=== PATIENT | male | born 1975 | race Caucasian/White ===

== ENCOUNTER 2020-02-05 14:02 | Inpatient (IN) | payer MEDICARE, MEDICAID, SELFPAY ==
[2020-02-05 14:07] VITALS: BP 137/87; PULSE 100; RESP 16; TEMP 36.6; O2SAT 97; BMI 28.8
--- NOTE | 2020-02-05 14:12 | W.ED.PSYCH ---
HPI - Psych General: Chief Complaint: Psychiatric Symptoms Stated Complaint: mhe Time Seen by Provider: 02/05/20 14:10 Source: patient and police Mode of arrival: other History of Present Illness: HPI Narrative: 45-year-old male who is here with [facility]. They have been called as he has been threatening to stab people and cut them with a box knife. Patient is quite agitated and aggressive here. He also has hallucinations and was told these people [facility] Patient here will not answer my questions and gets very agitated. He supposed to be on psychiatric medicines for schizophrenia but has not been taking them. He is homeless and has been using methamphetamine. Onset (ago): day(s) Relieving factors: none Exacerbating factors: none Associated symptoms: Reports depression and homicidal ideation Review of Systems Const: Denies: fever, chills, body aches or change in appetite Eyes: Denies: blurry vision or eye discomfort ENMT: Denies: throat pain or dental pain Card: Denies: chest pain Resp: Denies: shortness of breath GI: Denies: abdominal pain, nausea, vomiting or diarrhea : Denies: painful urination Musc: Denies: neck pain or back pain Skin/Breast: Denies: rash Neuro: Denies: headache Psych: Reports: depression, irritability, paranoia and homicidal ideation Dawit/Lymph: Denies: easy bruising All/Imm: Denies: hives PFS ED PFSH: Social History Smoking and tobacco status: current every day smoker Physical Exam Const: COMMON NORMALS: no apparent distress, oriented x3 and healthy appearing HENMT: COMMON NORMALS: normocephalic and head/scalp atraumatic HEAD & SCALP: normocephalic and atraumatic Eye: COMMON NORMALS: PERRL and EOMs intact bilaterally PUPIL: Yes PERRL Neck/C-Spine: COMMON NORMALS: full ROM and supple Chest: COMMONS NORMALS: inspection of chest normal and palpation of chest normal Resp: COMMON NORMALS: normal respiratory effort, no retractions, no use of accessory muscles and clear to auscultation bilaterally AUSCULTATION: clear to auscultation bilaterally Cardio: COMMON NORMALS: regular rate, regular rhythm and no murmurs RATE: regular rate RHYTHM: regular rhythm GI: COMMON NORMALS: normal to inspection, nondistended, normoactive bowel sounds, soft to palpation, non-tender and no masses PALPATION: Yes soft Extremity: COMMON NORMALS: normal to inspection and full ROM Neuro: COMMON NORMALS: oriented x3, moves all extremities and no focal motor deficits Psych: ATTITUDE: Yes paranoid and Yes aggressive ACTIVITY/MOTOR BEHAVIOR: Yes fidgeting MOOD & AFFECT: Yes anxious THOUGHT PROCESS: disorganized THOUGHT CONTENT: Yes homicidality and Yes hallucination(s) Skin: COMMON NORMALS: no rashes or lesions noted and no wounds GENERAL SKIN EXAM: no rashes or lesions noted MDM - Psych MDM Narrative: Medical decision making narrative: Patient presents here with homicidal ideations along with hallucinations. Patient was placed under [address] I spoke to Dr. Pederson and will admit. Lab Data: Labs: Lab Results 02/05/20 02/05/20 Range/Units 14:32 14:32 WBC 6.0 (4.0-10.0) 10^3/ uL RBC 4.09 L (4.1-5.3) 10^6/u L Hgb 12.8 (11.7-16.6) g/dL Hct 40.3 L (42.0-52.0) % MCV 98.5 H (80-94) fL MCH 31.3 (28.0-34.0) pg MCHC 31.8 (30.0-36.0) g/dL RDW 12.0 L (12.1-15.1) % Plt Count 277 (130-400) 10^3/c mm MPV 9.7 (7.4-10.4) fL Neut % (Auto) 61.9 % Lymph % (Auto) 27.8 % Arthur % (Auto) 8.7 % Eos % (Auto) 0.7 % Baso % (Auto) 0.7 % Neut # (Auto) 3.7 (1.8-7.7) 10^3/u L Lymph # (Auto) 1.7 (0.8-4.8) 10^3/u L Arthur # (Auto) 0.5 (0.2-0.9) 10^3/u L Eos # (Auto) 0.0 (0.0-0.8) 10^3/u L Baso # (Auto) 0.0 (0.0-0.1) 10^3/u L Nucleated RBC % (a uto) 0 % Nucleated RBCs # 0.0 /100WBC Sodium 141 (136-145) mmol/L Potassium 3.7 (3.5-5.1) mmol/L Chloride 104 (98-107) mmol/L Carbon Dioxide 28 (22-29) mmol/L Anion Gap 12.7 (5-19) BUN 12 (6-20) mg/dL Creatinine 0.6 L (0.7-1.2) mg/dL GFR Calculation 145.0 H (90-130) mL/min Glucose 90 (65-115) mg/dL Calculated Osmolal ity 288 (285-295) mOsm/k g Calcium 9.4 (8.5-10.5) mg/dL Total Bilirubin 0.5 (0.15-1.2) mg/dL AST 37 (0-40) U/L ALT 41 (0-41) U/L Alkaline Phosphata se 79 (40-130) IU/L Total Protein 6.5 L (6.6-8.7) g/dL Albumin 4.0 (3.5-5.2) g/dL Globulin 2.5 (1.3-4.6) g/dL Salicylates < 0.3 L (3-10) mg/dL Acetaminophen < 5.0 L (10-30) ug/mL Ethyl Alcohol < 10 (0-10) mg/dL Discharge Plan Discharge Patient Disposition: Admitted As Inpatient Clinical Impression: Chronic schizophrenia, Drug-induced psychotic disorder Condition: Stable Prescriptions: No Action No Known Home Medications RF: 0 Referrals: Wang Dodson MD [Family Provider] - Coding Level of Care Code ED [employer] Producer for [facility] Fwd Exam Comprehensive
[2020-02-05 14:27] VITALS: RESP 18
[2020-02-05] MEDS: haloperidol inj 5 mg/mL INJ 1 mL IM (14:41)
[2020-02-05] MEDS: LORazepam 2 mg/mL INJ 1 mL IM (14:41)
[2020-02-05 14:47] VITALS: RESP 17
[2020-02-05 14:49] LABS: Basophils % 0.7 %; Eosinophils % 0.7 %; Hematocrit 40.3 % (42.0-52.0); Hemoglobin 12.8 g/dL (11.7-16.6); Lymphocytes # 1.7 10^3/uL (0.8-4.8); Lymphocytes % 27.8 %; Mean Corpuscular HGB Conc 31.8 g/dL (30.0-36.0); Mean Corpuscular Hemoglobin 31.3 pg (28.0-34.0); Mean Corpuscular Volume 98.5 fL (80-94); Mean Platelet Volume 9.7 fL (7.4-10.4); Monocytes # 0.5 10^3/uL (0.2-0.9); Monocytes % 8.7 %; Neutrophils # 3.7 10^3/uL (1.8-7.7); Neutrophils % 61.9 %; Nucleated Red Blood Cells % 0 %; Platelet Count 277 10^3/cmm (130-400); Red Blood Count 4.09 10^6/uL (4.1-5.3)
[2020-02-05 15:04] LABS: Alanine Aminotransferase 41 U/L (0-41); Alkaline Phosphatase 79 IU/L (40-130); Anion Gap 12.7 (5-19); Aspartate Amino Transferase 37 U/L (0-40); Blood Urea Nitrogen 12 mg/dL (6-20); Calcium 9.4 mg/dL (8.5-10.5); Carbon Dioxide 28 mmol/L (22-29); Chloride 104 mmol/L (98-107); Globulin 2.5 g/dL (1.3-4.6); Glucose 90 mg/dL (65-115); Osmolality Calculated 288 mOsm/kg (285-295); Potassium 3.7 mmol/L (3.5-5.1); Sodium 141 mmol/L (136-145); Total Bilirubin 0.5 mg/dL (0.15-1.2); Total Protein 6.5 g/dL (6.6-8.7)
[2020-02-05 15:18] LABS: Acetaminophen < 5.0 ug/mL (10-30); Alcohol Level < 10 mg/dL (0-10); Salicylate < 0.3 mg/dL (3-10)
[2020-02-05 16:18] VITALS: BP 116/64; PULSE 92; RESP 15; O2SAT 98
[2020-02-05 16:44] VITALS: BP 102/65; PULSE 76; RESP 18; TEMP 36.5; O2SAT 98
[2020-02-05 21:27] VITALS: BP 109/65; PULSE 91; RESP 16; TEMP 36.7; O2SAT 99
[2020-02-06 06:00] VITALS: BP 145/71; PULSE 88; RESP 18; TEMP 36.9; O2SAT 99
--- NOTE | 2020-02-06 11:15 | PM.NHP ---
Providers/Chief Complaint Admitting Physician: Jermaine Pederson MD Chief Complaint: HOMICIDAL IDEATION, HALUCINTATIONS HPI NPU History of Present Illness Paul Rhodes is a 45 year old male who presented to the emergency room having presented with an ambulance as he was reportedly threatening to stab people and cut him with a box knife. He was aggressive and agitated. He was endorsing hallucinations that led him to tell people he was going to send him to [facility]. He had agitated with questions. And reportedly was not taking his psychiatric medication and had been using methamphetamine. He was admitted to the neuropsychiatric unit for definitive care for those issues. Upon approach by this engineering technical writer he initially was receptive to questions. Then when he was identified as being on a 96-hour hold he asked when the hold would be over I gave him the time and he became very agitated screaming and calling this engineering technical writer a liar. Then after an explanation of how the surgery long works he got very angry and started calling this engineering technical writer a Nigger and threatening to harm this engineering technical writer saying at one point I can make one phone call and you would not make it to work tomorrow. He pointed to his head and made it clear that he can make that phone call without using a phone just using his head. He would not participate in the conversation more. I have included his last evaluation here at [facility] in 2014 or [place] excerpt from that stay for some additional psychosocial information. That can be found below. Per last [facility] eval in 2014: History of Present Illness Date of Service: May 31, 2015 Chief Complaint: The law arrested me HPI: The patient was admitted from the emergency room on a 96 hour hold. He was brought to the emergency room by police after he was found running in the streets naked. He states he had not taken his medications in a few days.The patient endorses depressed mood most of the time, anhedonia, reduced appetite, fatigue, trouble concentrating, insomnia, feelings of guilt, psychomotor retardation. Also endorses extreme irritability and not needing to sleep for days. He has a history of bipolar disorder for which he receives disability benefits. He is not hearing voices and seeing things. He states he has a history of polysubstance dependence and states I have done a lot of drugs . However, states he now smokes mostly marijuana and his urine drug screen was positive for THC and benzodiazepines. Review of Psychiatric Systems: Negative, except as above. Allergies: Coded Allergies: PENICILLINS (Unverified Allergy, Unknown, 05/30/15) Active Meds: Current Hospital Medications: Medications (Trade) Dose Ordered Sig/Charity Route PRN Reason Start Time Stop Time Status Last Admin Dose Admin Lorazepam (Ativan Tab) 0.5 mg Q4H PRN PO FOR MILD ANXIETY 05/30/15 19:00 Lorazepam (Ativan Tab) 1 mg Q4H PRN PO FOR MODERATE ANXIETY 05/30/15 19:00 Lorazepam (Ativan Tab) 2 mg Q4H PRN PO FOR SEVERE ANXIETY 05/30/15 19:00 Lorazepam (Ativan Inj) 2 mg Q4H PRN IM For Severe Aggression 05/30/15 19:00 Haloperidol Lactate (Haldol Inj) 5 mg Q4H PRN IM Severe Aggression 05/30/15 19:00 Diphenhydramine HCl (Benadryl Inj) 50 mg ONCE PRN IV Severe Extrapyramidal Symptoms 05/30/15 19:00 Benztropine Mesylate (Cogentin Tab) 1 mg BID PRN PO Mild Extrapyramidal symptoms 05/30/15 19:00 Benztropine Mesylate (Cogentin Inj) 1 mg ONCE PRN IM Severe Extrapyramidal Symptom 05/30/15 19:00 Acetaminophen (Tylenol Tab) 650 mg Q4H PRN PO FOR MILD PAIN 05/30/15 19:00 Trazodone HCl (Trazodone) 50 mg HS PRN PO FOR SLEEP 05/30/15 19:00 Nicotine (Nicoderm Patch) 21 mg DAILY PRN TD FOR WITHDRAWAL 05/30/15 19:00 Nicotine Polacrilex (Nicotine Gum) 2 mg Q2H PRN PO Withdrawal 05/30/15 19:00 Haloperidol (Haldol Tab) 5 mg Q4H PRN PO For agitation 05/30/15 19:00 Lorazepam (Ativan Tab) 2 mg Q4H PRN PO FOR AGITATION 05/30/15 19:00 Divalproex Sodium (Depakote Tab) 250 mg BID PO 05/31/15 22:00 Quetiapine Fumarate (Seroquel) 300 mg HS PO 05/31/15 22:00 Simvastatin (Zocor) 20 mg HS PO 05/31/15 22:00 Citalopram Hydrobromide (Celexa) 40 mg DAILY PO 05/31/15 10:30 05/31/15 11:19 Home Meds: Seroquel 300 mg at bedtime, Celexa 40 mg daily, Depakote 250 mg twice a day, simvastatin 40 mg daily. Past Medical History Past Medical/Social History: PAST PSYCHIATRIC HISTORY:Previous psychiatric admissions: Yes, in [place] and in [place]. Previous suicide attempts:No. SUBSTANCE ABUSE HISTORY: Smokes Cigarettes: yes. Number of packs per day: 2. Endorses illicit drug use: As mentioned above. Alcohol use: Occasionally. History of alcohol related withdrawal seizures:No. History of Delirium Tremens:No. SOCIAL HISTORY: Employed: No. Is on disability: Yes. Education: High school graduate. Marital status: Single. Has 1 child. DEVELOPMENTAL HISTORY: History of Physical, Emotional and Sexual abuse: No. LEGAL HISTORY: States he is on probation, but does not elaborate. FAMILY PSYCHIATRIC HISTORY: None reported. PAST MEDICAL HISTORY: None. Meds NPU Home Medications Medication Instructions Recorded Confirmed Last Taken Type No Known Home Medications 02/05/20 02/05/20 Unknown History Allergies Allergy/AdvReac Type Severity Reaction Status Date / Time No Known Allergies Allergy Verified 02/05/20 14:14 PFSH NPU PFSH: Social History Smoking and tobacco status: current every day smoker Mental Status Exam MSE Comments: This is an overweight white male with adequate dress grooming and eye contact. No abnormal movements except for psychomotor agitation. Uncooperative with exam, at times and extreme distress. Speech was increased rate and volume. Mood described as fine affect agitated thought process disorganized with flight of ideas at times but organized to some degree at others. Thought content patient denied suicidal ideation not endorsed homicidal ideation initially but then threatened this engineering technical writer, there were no delusions reported but clear paranoid, hyper taoism and persecutory delusions exist, he did appear to be attending to internal stimuli. Attention and concentration were impaired and memory was unreliable but none were formally tested. He is alert and oriented to person and place. Insight and judgment are impaired. Vitals/I&O/Wt Last Vital Signs Temp 98.5 F 02/06/20 06:00 Pulse 88 02/06/20 06:00 Resp 18 02/06/20 06:00 BP 145/71 02/06/20 06:00 Pulse Ox 95 05/01/20 06:00 Weight last 48 hrs Weight 102.058 kg Data NPU : 02/05/20 14:32 02/05/20 14:32 A&P Assessment and plan (1) Chronic schizophrenia: This is a 45-year-old white male with a history of bipolar disorder and methamphetamine addiction who presents without a UDS with acute psychosis and presumed of methamphetamine intoxication who presents very volatile and resistant to treatment. 1. Continue current medication. 2. We will recommend Abilify 10 mg p.o. every morning. Restart it and see if he is willing to take it but he resisted continuance of the interview. 3. Encouraged individual, group and milieu therapy. 4. Continue to 15-minute checks for safety. 5. We will work with social work for collateral information as well as recommendations for sober living facility or sober living treatment at the highest level of care to which he is willing to commit. Status: Acute (2) Drug-induced psychotic disorder: Status: Acute (3) Methamphetamine dependence: Status: Acute Involuntary Hold Information 96 Hour Hold: 96 Hour Involuntary Admission: Yes 96 Hour Hold Ending Date: 02/11/20 96 Hour Hold Ending Time: 14:02 Attestations NPU Medical Necessity Statement*: Inpatient hospitalization is medically necessary and the clinically appropriate intervention at this time. He will be in the hospital for over 2 midnights. We will monitor medications and add medications and adjust as indicated. Likely length of stay 5 to 7 days. Coding Level of Care Code Acute Contact Worker Lithography for Brian Beltran Diagnoses Chronic schizophrenia F20.9 Drug-induced psychotic disorder F19.959 Methamphetamine dependence F15.20
[2020-02-06 14:00] VITALS: BP 110/67; PULSE 82; RESP 20; TEMP 36.6; O2SAT 99
[2020-02-06 19:31] VITALS: BP 129/73; PULSE 84; RESP 17; TEMP 36.9; O2SAT 99
[2020-02-07 06:00] VITALS: BP 113/79; PULSE 94; RESP 18; TEMP 36.7; O2SAT 98
[2020-02-07 12:59] VITALS: BP 105/65; PULSE 66; RESP 18; TEMP 36.6; O2SAT 97
[2020-02-07] MEDS: nicotine 2 mg Gum BUCCAL ×3 (15:50→21:09)
--- NOTE | 2020-02-07 17:34 | P.PN_ITS ---
Subjective NPU Subjective: Interval history: The patient presents today a little less volatile than yesterday. He reports that his major issue is related to the fact that he has a payee and the payee has somehow fouled up his money. He endorses that he is homeless for that reason. He reports recently having spent some time in a retirement and he had seven hundred and some dollars in his wallet when he went there, and then when he left, there is three-hundred dollars missing and reports that because he is in his condition nobody believes him, but those are the things that are making it hard for him to not be homeless. We talked about his behavior yesterday and him not feeling that there is anything really wrong with him even though he makes these rastafari assertions suggesting that he is Eh Thomas, assertions that he has special abilities. He does not see that as any issue and for the third day he turned down my offer there might be some medication that will help give him some clarity. He reports he wants to wait until he can be discharged and then he will reportedly do whatever is necessary to stay well, but he does not believe he needs medication. Mental Status Exam MSE Comments: This is an overweight, versus obese, white male, with adequate dress, grooming, and eye contact. No abnormal movements except for mild psychomotor agitation. More cooperative with exam in no acute distress. Speech was more normal rate and volume. Mood described as fine; affect still elevated. Thought process, more organized today. Thought content: patient denied any suicidal or homicidal ideation, there were no delusions reported but clear rastafari, paranoid and persecutory delusions exist. He did not appear to be attending to internal stimuli. His attention and concentration were improved, but memory still appears unreliable, but none were formally tested. He is alert and oriented to person and place. Insight and judgment are impaired. Vitals/I&O/Wt Last Vital Signs Temp 97.9 F 02/07/20 12:59 Pulse 66 02/07/20 12:59 Resp 18 02/07/20 12:59 BP 105/65 02/07/20 12:59 Pulse Ox 97 02/07/20 12:59 Data NPU : 02/05/20 14:32 02/05/20 14:32 A&P Additional A&P Information (1) Chronic schizophrenia: This is a 45-year-old white male with a history of bipolar disorder and methamphetamine addiction who presents without a UDS with acute psychosis and presumed of methamphetamine intoxication who presents very volatile and resistant to treatment. 1. Continue current medication. 2. We will recommend Abilify 10 mg p.o. every morning. Will continue to offer it and see if he is willing to take it. 3. Encouraged individual, group and milieu therapy. 4. Continue to 15-minute checks for safety. 5. We will work with social work for collateral information as well as recommendations for sober living facility or sober living treatment at the highest level of care to which he is willing to commit. (2) Drug-induced psychotic disorder: (3) Methamphetamine dependence: Involuntary Hold Information 96 Hour Hold: 96 Hour Involuntary Admission: Yes 96 Hour Hold Ending Date: 02/11/20 96 Hour Hold Ending Time: 14:02 Attestations U Medical Necessity Statement*: Inpatient hospitalization is medically necessary and the clinically appropriate intervention at this time. We will monitor medications and add medications and adjust as indicated. Likely length of stay 5 to 7 days. Coding Level of Care Code Acute Band Cutting Machine Operator for Brian Beltran
[2020-02-07 20:02] VITALS: BP 111/73; PULSE 86; RESP 100; TEMP 36.7; O2SAT 17
[2020-02-08 06:00] VITALS: BP 110/67; PULSE 70; RESP 18; TEMP 36.8; O2SAT 98
[2020-02-08] MEDS: nicotine 2 mg Gum BUCCAL ×5 (09:02→23:24)
--- NOTE | 2020-02-08 12:33 | PM.NPN ---
Subjective NPU Subjective: Interval history: Paul presented today continuing to be in a state of acute psychosis. He had ramblings that were often racist in relation to this narrative writer during the assessment. There are times that he talked about nigger and jigaboo and often referred to this narrative writer as felicia for short, but then later asserted that he was not being racist, that this narrative writer was the most racist person in the hospital because I was probably one of few black people there, therefore I was the most racist. He then went on some tangent about these rocks that he had and this narrative writer not touching them, demanding that the staff show him the rocks and asserting that they came from arch angels and Alpesh, and all kinds of hyper-orthodox connections. Then when challenged he would get angry and give some assessment of who he is connected to, he talked about being connected to Eh Thomas. He argued that the KKK was not harmful to black people, that they protected black people and said that the KKK standard was referring to JFK, MLK and RFK, those are the three K?s. He refused offering of medication. Mental Status Exam MSE Comments: This is a well-nourished, well-developed, white male, with adequate dress, grooming, and eye contact. No abnormal movements except for psychomotor agitation. Uncooperative with exam for the most part in moderate to significant distress. Speech was increased rate and volume, at times pressured. Mood described as fine; affect energetic and manic. Thought process, disorganized. Thought content: patient denied any suicidal or homicidal ideation, there were no delusions reported, but significant paranoid, persecutory and hyper-orthodox delusions exist along with significant grandiosity. He did not report hearing or seeing things but was often seen talking to himself. Attention and concentration were limited, and memory is unreliable, but none were formally tested. Alert and oriented to person and place. Insight and judgment are impaired. Vitals/I&O/Wt Last Vital Signs Temp 98.5 F 02/08/20 20:39 Pulse 92 02/08/20 20:39 Resp 21 H 02/08/20 20:39 BP 113/80 02/08/20 20:39 Pulse Ox 100 02/08/20 20:39 Weight last 48 hrs Weight 79.492 kg Data NPU : 02/05/20 14:32 02/05/20 14:32 A&P Additional A&P Information (1) Chronic schizophrenia: This is a 45-year-old white male with a history of bipolar disorder and methamphetamine addiction who presents without a UDS with acute psychosis and presumed of methamphetamine intoxication who presents very volatile and resistant to treatment. 1. Continue current medication. 2. We will recommend Abilify 10 mg p.o. every morning. Will continue to offer it and see if he is willing to take it. 3. Encouraged individual, group and milieu therapy. 4. Continue to 15-minute checks for safety. 5. We will work with social work for collateral information as well as recommendations for sober living facility or sober living treatment at the highest level of care to which he is willing to commit. (2) Drug-induced psychotic disorder: (3) Methamphetamine dependence: Involuntary Hold Information 96 Hour Hold: 96 Hour Involuntary Admission: Yes 96 Hour Hold Ending Date: 02/11/20 96 Hour Hold Ending Time: 14:02 Attestations NPU Medical Necessity Statement*: Inpatient hospitalization is medically necessary and the clinically appropriate intervention at this time. We will monitor medications and add medications and adjust as indicated. Likely length of stay 5 to 7 days. Coding Level of Care Code Acute Ribbon Blockmaker for Brian Beltran
[2020-02-08 14:00] VITALS: BP 117/77; PULSE 82; RESP 18; TEMP 36.9
--- NOTE | 2020-02-08 15:04 | PC.NURSE ---
Patient behavior Patient yelling at Dr Pederson calling him racist names, wanting to fight him. Punched himself in his face once. Offered medication for anxiety and he refused. De escalation and distraction measures used to calm him down. Will continue to monitor.
[2020-02-08 20:39] VITALS: BP 113/80; PULSE 92; RESP 21; TEMP 36.9; O2SAT 100
[2020-02-09] MEDS: nicotine 2 mg Gum BUCCAL ×4 (05:09→18:55)
[2020-02-09 06:00] VITALS: BP 119/85; PULSE 74; RESP 20; TEMP 36.9; O2SAT 100
--- NOTE | 2020-02-09 12:16 | P.PN_ITS ---
Subjective NPU Subjective: Interval history: Paul presents today continuing to be floridly psychotic and manic, continuing to make comments about special rocks and overall with grandiose delusions about him being connected in special ways. He went on a rant today about naming three counties in the local [place] area and somehow ending it with him being related to the person who the county may have been named after. There was a lot of Clang associations, and things like that, that are not going to diminish with time. We had a conversation today about how I am really concerned about him being able to leave after the 96-hour observation, which he is locked in on the date and time of the end of his 96-hour hold. I explained to him that if he was not well he would not be discharged but his take was that he is well, which I disagreed with, but he was not hearing that because he thinks he is doing wonderfully about everything. Once again offered medication and stated the risks, benefits, and alternatives, and it is not clear that he understood and he refused a trial. As far as we have been told, he was doing really well on medication, to the point that they gave him back his own guardianship earlier this year, and now he is in a very precarious situation. Mental Status Exam MSE Comments: This is a well-nourished, well-developed, white male, with adequate dress and grooming, and limited eye contact. No abnormal movements, except for psychomotor agitation. Uncooperative with exam in mild to moderate distress. Speech was increased rate and volume. Mood described as fine; affect energized and manic appearing. Thought process, organized at times, at other times was quite disorganized. Thought content: patient denied any suicidal or homicidal ideation; there were no delusions reported but significant paranoid, persecutory, grandiose delusions exist; he denied any auditory or visual hallucinations but he does appear to be attending to internal stimuli, at times, and is speaking to himself. Attention and concentration are limited, and memory was unreliable, but none were formally tested. He is alert and oriented to person and place. Insight and judgment are impaired. Vitals/I&O/Wt Last Vital Signs Temp 98.5 F 02/09/20 22:00 Pulse 109 H 02/09/20 22:00 Resp 22 H 05/04/20 22:00 BP 132/61 02/09/20 22:00 Pulse Ox 97 02/09/20 22:00 Weight last 48 hrs Weight 79.492 kg Data NPU : 02/05/20 14:32 02/05/20 14:32 A&P Additional A&P Information (1) Chronic schizophrenia: This is a 45-year-old white male with a history of bipolar disorder and methamphetamine addiction who presents without a UDS with acute psychosis and presumed of methamphetamine intoxication who presents very volatile and resistant to treatment. 1. Continue current medication. 2. We will recommend Abilify 10 mg p.o. every morning. Will continue to offer it and see if he is willing to take it. 3. Encouraged individual, group and milieu therapy. 4. Continue to 15-minute checks for safety. 5. We will work with social work for collateral information as well as recommendations for sober living facility or sober living treatment at the highest level of care to which he is willing to commit. (2) Drug-induced psychotic disorder: (3) Methamphetamine dependence: Involuntary Hold Information 96 Hour Hold: 96 Hour Involuntary Admission: Yes 96 Hour Hold Ending Date: 02/11/20 96 Hour Hold Ending Time: 14:02 Attestations NPU Medical Necessity Statement*: Inpatient hospitalization is medically necessary and the clinically appropriate intervention at this time. We will monitor medications and add medications and adjust as indicated. Likely length of stay 5 to 7 days. Coding Level of Care Code Acute Changer Fixer for Brian Beltran
[2020-02-09 14:00] VITALS: BP 127/82; PULSE 80; RESP 20; TEMP 36.8; O2SAT 99
--- NOTE | 2020-02-09 17:04 | PC.NURSE ---
patient behavior patient asked for stuff to take a shower, so staff went and got patient towels and then went to the patient closet to get patient a shirt. staff gave patient a shirt and patient said i dont like long sleeves and ripped the sleeves off. staff told patient that it was against the rules to wear cut off shirts so patient gave it back to staff and asked for another shirt. staff told patient that all we had right now was long sleeve shirts. then patient screamed at staff 'you stupid bitch patient walking back to room to take a shower talking to self.
[2020-02-09 22:00] VITALS: BP 132/61; PULSE 109; RESP 22; TEMP 36.9; O2SAT 97
[2020-02-10] MEDS: diphenhydrAMINE 50 mg/mL SDV 1mL IM ×2 (01:58→15:45)
[2020-02-10] MEDS: LORazepam 2 mg/mL INJ 1 mL IM ×2 (01:58→15:45)
[2020-02-10] MEDS: haloperidol inj 5 mg/mL INJ 1 mL IM ×2 (01:58→15:45)
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
[2020-02-10 06:00] VITALS: BP 128/75; PULSE 101; RESP 16; TEMP 36.4; O2SAT 99
[2020-02-10] MEDS: nicotine 2 mg Gum BUCCAL (09:10)
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
[2020-02-10 14:00] VITALS: BP 124/82; PULSE 92; RESP 18; TEMP 36.6; O2SAT 98
[2020-02-10] MEDS: haloperidol 5 mg Tablet PO (14:36)
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
[2020-02-10] MEDS: LORazepam 2 mg Tablet PO (14:43)
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
--- NOTE | 2020-02-10 16:50 | PC.NURSE ---
PATIENT RESTING QUIETLY, NO DISTRESS NOTED. PRN EFFECTIVE. WILL CONT TO MONITOR, SUPPORT AND REDIRECT NEEDED
[2020-02-10 22:00] VITALS: BP 104/63; PULSE 72; RESP 16; TEMP 36.5; O2SAT 95
[2020-02-11] MEDS: nicotine 2 mg Gum BUCCAL ×4 (05:37→17:45)
[2020-02-11 06:00] VITALS: BP 107/75; PULSE 98; RESP 16; TEMP 36.6; O2SAT 96
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
[2020-02-11 14:00] VITALS: BP 104/64; PULSE 99; RESP 18; TEMP 36.6; O2SAT 97
--- NOTE | 2020-02-11 16:20 | PC.SOCIAL ---
[address] hearing scheduled for 11am on 02/12/20.
[2020-02-11 22:00] VITALS: BP 116/79; PULSE 91; RESP 17; TEMP 36.4; O2SAT 100
[2020-02-11 22:21] LABS: Amphetamines Screen Urine Negative (Negative); Barbiturates Screen Urine Negative (Negative); Benzodiazepines Screen Urine Positive (Negative); Cocaine Screen Urine Negative (Negative); Opiate Screen Urine Negative (Negative); PCP Screen Urine Negative (Negative); THC Screen Urine Negative (Negative)
[2020-02-12] MEDS: acetaminophen 325 mg Tablet 650 MG PO (04:07)
[2020-02-12] MEDS: nicotine 2 mg Gum BUCCAL ×7 (04:08→19:45)
[2020-02-12 06:00] VITALS: BP 112/67; PULSE 58; RESP 20; TEMP 36.6; O2SAT 99
--- NOTE | 2020-02-12 11:37 | PC.NURSE ---
OFF UNIT TO ATTEND [address] HEARING
--- NOTE | 2020-02-12 11:53 | P.PN_ITS ---
Subjective NPU Subjective: Interval history: Paul presented today reporting that he wanted to go home. We had a court date and went to court, and it went as would be expected. He did not do well in the court setting. He could not answer the questions in a rational way. He was making racial comments about this selling underwriter and ultimately erupted, at one point, needing to be escorted out of the courtroom. Back at the unit, he continued his same antics, so to speak, with reports of seeking forgiveness for calling this selling underwriter a ?nigger? and requesting that he be put back on his medication. At this point, we will engage in the medication but, reportedly, it looks like it historically got him functional but there is significant concern, which I expressed to him, regarding him not having a medication that ultimately could be a long acting injectable. Mental Status Exam MSE Comments: This is a well-nourished, well-developed, white male, with adequate dress, grooming, and eye contact, with a bandaid on his forehead of unknown purpose. No abnormal movements, except for psychomotor agitation. Semi- cooperative with exam in occasional mild to moderate distress. Speech was increased rate but normal volume. Mood described as ?I?m fine?; affect somewhat less energetic. Thought process, organized with moments of disorganization when he is speaking to himself and ranting. Thought content: patient denied any suicidal or homicidal ideation; there were no delusions reported but there are clear paranoid, persecutory, and grandiose delusions; he denied auditory or visual hallucinations but is seen speaking to himself, and he does appear to be attending to internal stimuli, at times. Attention and concentration are mostly intact but still distractible, and memory is unreliable, but none were formally tested. He is alert and oriented times three. Insight and judgment are impaired. Vitals/I&O/Wt Last Vital Signs Temp 97.6 F 02/12/20 22:00 Pulse 91 02/12/20 22:00 Resp 18 02/12/20 22:00 BP 151/83 02/12/20 22:00 Pulse Ox 100 02/12/20 22:00 Data NPU : 02/05/20 14:32 02/05/20 14:32 A&P Additional A&P Information (1) Chronic schizophrenia: This is a 45-year-old white male with a history of bipolar disorder and methamphetamine addiction who presents without a UDS with acute psychosis and presumed of methamphetamine intoxication who presents very volatile and resistant to treatment. 1. Continue current medication. Given Depakote 500 ER qhs and Seroquel 100mg qhs. 2. We will recommend Abilify 10 mg p.o. every morning. or invega 6 mg given the CAMPA available for those medications. Will continue to offer it and see if he is willing to take it. 3. Encouraged individual, group and milieu therapy. 4. Continue to 15-minute checks for safety. 5. We will work with social work for collateral information as well as recommendations for sober living facility or sober living treatment at the highest level of care to which he is willing to commit. 6. 21 day hold granted. (2) Drug-induced psychotic disorder: (3) Methamphetamine dependence: Involuntary Hold Information 96 Hour Hold: 96 Hour Involuntary Admission: Yes 96 Hour Hold Ending Date: 02/11/20 96 Hour Hold Ending Time: 14:02 Attestations NPU Medical Necessity Statement*: Inpatient hospitalization is medically necessary and the clinically appropriate intervention at this time. We will monitor medications and add medications and adjust as indicated. Likely length of stay 5 to 7 days. Coding Level of Care Code Acute Dobby Loom Chain Pegger for Brian Beltran
--- NOTE | 2020-02-12 12:45 | PC.NURSE ---
return to unit from [address]
[2020-02-12 14:00] VITALS: BP 112/72; PULSE 86; RESP 18; TEMP 36.4; O2SAT 100
--- NOTE | 2020-02-12 14:20 | PC.SOCIAL ---
21 day hold was granted. If extension is needed will need to be filed by 02/27/20. 21 day hold up on 03/03/20.
[2020-02-12] MEDS: divalproex ER 500 mg Tablet (24H) PO (20:18)
[2020-02-12] MEDS: quetiapine 100 mg Tablet PO (20:18)
[2020-02-12 22:00] VITALS: BP 151/83; PULSE 91; RESP 18; TEMP 36.4; O2SAT 100
[2020-02-13 06:00] VITALS: BP 99/61; PULSE 57; RESP 18; TEMP 36.4; O2SAT 97
[2020-02-13] MEDS: nicotine 2 mg Gum BUCCAL ×4 (07:07→14:53)
--- NOTE | 2020-02-13 09:58 | PC.NURSE ---
patient behavior patient is at the nurses station demanding a shirt when staff told patient that we dont have any. while staff was getting patient a towel and had to go to the other side to get towels patient called staff fat cunts . staff gave patient towels and patient went to take a shower.
--- NOTE | 2020-02-13 12:34 | PM.NPN ---
Subjective NPU Subjective: Interval history: Paul presents today with his first fairly calm today without major outbursts. He actually had a rough morning calling the nurses their names however later in the day he has been better. He has been able to interact with this telegraphic typewriter operator without major racial overtones and able to ask for what he needs reasonably. We discussed a reasonable titration of his medications back to the doses he imagines them to be which was Depakote ER 500 mg twice a day, Celexa 40 mg p.o. every morning and Seroquel 300 mg p.o. nightly. After discussion of the risks, benefits and alternatives of restarting these medications a bit of the time he understood and agreed to proceed as is documented in this note. Mental Status Exam MSE Comments: This is a well-nourished, well-developed, white male, with adequate dress, grooming, and eye contact, with a bandaid on his forehead of unknown purpose. No abnormal movements, except for improving psychomotor agitation. Cooperative with exam in no acute distress. Speech was more normal rate but normal volume. Mood described as pretty good; affect less energetic. Thought process, organized. Thought content: patient denied any suicidal or homicidal ideation; there were no delusions reported but there are clear paranoid and grandiose delusions that are resolving; he denied auditory or visual hallucinations but is seen speaking to himself, and he does appear to be attending to internal stimuli, at times. Attention and concentration are mostly intact, and memory is unreliable, but none were formally tested. He is alert and oriented times three. Insight and judgment are impaired, but improving. Vitals/I&O/Wt Last Vital Signs Temp 97.6 F 02/13/20 06:00 Pulse 57 L 02/13/20 06:00 Resp 18 02/13/20 06:00 BP 99/61 02/13/20 06:00 Pulse Ox 97 02/13/20 06:00 Data NPU : 02/05/20 14:32 02/14/20 17:20 A&P Additional A&P Information This is a 45-year-old white male with a history of bipolar disorder and methamphetamine addiction who presents without a UDS with acute psychosis and presumed of methamphetamine intoxication who presents very volatile and resistant to treatment. 1. Continue current medication. Give Depakote 500 ER qhs and Seroquel 100mg qhs. 2. We will recommend Abilify 10 mg p.o. every morning. or invega 6 mg given the CAMPA available for those medications. Will continue to offer it and see if he is willing to take it. 3. Encouraged individual, group and milieu therapy. 4. Continue to 15-minute checks for safety. 5. We will work with social work for collateral information as well as recommendations for appropriate aftercare. (2) Drug-induced psychotic disorder: (3) Methamphetamine dependence: Involuntary Hold Information 96 Hour Hold: 96 Hour Involuntary Admission: Yes 96 Hour Hold Ending Date: 02/11/20 96 Hour Hold Ending Time: 14:02 Attestations NPU Medical Necessity Statement*: Inpatient hospitalization is medically necessary and the clinically appropriate intervention at this time. We will monitor medications and add medications and adjust as indicated. Likely length of stay 5 to 7 days. Coding Level of Care Code Acute Livestock Commission Agent for Brian Beltran
[2020-02-13 14:00] VITALS: BP 126/82; PULSE 85; RESP 18; TEMP 36.4; O2SAT 98
[2020-02-13] MEDS: citalopram 20 mg Tablet PO (14:53)
[2020-02-13] MEDS: neomycin-poly-bacitracin oint 28 gm 1 APPLIC TOPICAL (18:55)
[2020-02-13] MEDS: quetiapine 100 mg Tablet PO (20:14)
[2020-02-13] MEDS: divalproex ER 500 mg Tablet (24H) PO (20:14)
[2020-02-13 22:00] VITALS: BP 143/88; PULSE 81; RESP 18; TEMP 36.7; O2SAT 99
[2020-02-14 06:00] VITALS: BP 121/69; PULSE 67; RESP 18; TEMP 36.6; O2SAT 100
[2020-02-14] MEDS: nicotine 2 mg Gum BUCCAL ×5 (06:18→21:32)
[2020-02-14] MEDS: citalopram 20 mg Tablet PO (08:07)
[2020-02-14 14:00] VITALS: BP 110/68; PULSE 96; RESP 18; TEMP 36.8; O2SAT 98
--- NOTE | 2020-02-14 14:34 | PM.NPN ---
Subjective NPU Subjective: Interval history: Paul continues to show improvement and had an increase in his self-control. He was able to go out in the Courty[place] and even interact a little bit with other clients without demonstration of his psychosis. Still signs of paranoia and still interested in leaving. 1 challenge we will have is that he feels like he is doing better which he is and so his desire is going to be to be discharged on Sunday which at this point would not be appropriate but will defer to the treatment team Sunday. At this point he continues to have limited supportive resources. Mental Status Exam MSE Comments: This is a well-nourished, well-developed, white male, with adequate dress, grooming, and eye contact. No abnormal movements, except for improving psychomotor agitation. Cooperative with exam in no acute distress. Speech was more normal rate but normal volume. Mood described as doing good; affect less energetic. Thought process, organized. Thought content: patient denied any suicidal or homicidal ideation; there were no delusions reported but there are clear paranoid and grandiose delusions that are resolving; he denied auditory or visual hallucinations but is seen speaking to himself less, and he does appear to be attending to internal stimuli, at times. Attention and concentration are mostly intact, and memory is unreliable, but none were formally tested. He is alert and oriented times three. Insight and judgment are impaired, but improving. Vitals/I&O/Wt Last Vital Signs Temp 97.8 F 02/14/20 22:00 Pulse 99 02/14/20 22:00 Resp 18 02/14/20 22:00 BP 132/84 02/14/20 22:00 Pulse Ox 96 02/14/20 22:00 Data NPU : 02/05/20 14:32 02/14/20 17:20 A&P Additional A&P Information This is a 45-year-old white male with a history of bipolar disorder and methamphetamine addiction who presents without a UDS with acute psychosis and presumed of methamphetamine intoxication who presents very volatile and resistant to treatment. 1. Continue current medication. Increase Seroquel to 200mg qhs and celexa was restarted. 2. We will recommend Abilify 10 mg p.o. every morning. or invega 6 mg given the CAMPA available for those medications. Will continue to offer it and see if he is willing to take it. 3. Encouraged individual, group and milieu therapy. 4. Continue to 15-minute checks for safety. 5. We will work with social work for collateral information as well as recommendations for appropriate aftercare. (2) Drug-induced psychotic disorder: (3) Methamphetamine dependence: Involuntary Hold Information 96 Hour Hold: 96 Hour Involuntary Admission: Yes 96 Hour Hold Ending Date: 02/11/20 96 Hour Hold Ending Time: 14:02 Attestations NPU Medical Necessity Statement*: Inpatient hospitalization is medically necessary and the clinically appropriate intervention at this time. We will monitor medications and add medications and adjust as indicated. Likely length of stay 5 to 7 days. Coding Level of Care Code Acute Rim Turning Machine Operator for Brian Beltran
[2020-02-14 17:49] LABS: Alanine Aminotransferase 22 U/L (0-41); Albumin Level 4.4 g/dL (3.5-5.2); Alkaline Phosphatase 67 IU/L (40-130); Anion Gap 15.9 (5-19); Aspartate Amino Transferase 23 U/L (0-40); Blood Urea Nitrogen 20 mg/dL (6-20); Calcium 10.8 mg/dL (8.5-10.5); Carbon Dioxide 32 mmol/L (22-29); Chloride 98 mmol/L (98-107); Creatinine Clr Calc Pharmacy 151.2893; Glomerular Filtration Rate 121.4 mL/min (90-130); Glucose 85 mg/dL (65-115); Osmolality Calculated 286 mOsm/kg (285-295); Potassium 5.9 mmol/L (3.5-5.1); Sodium 140 mmol/L (136-145); Total Bilirubin 0.3 mg/dL (0.15-1.2); Total Protein 7.4 g/dL (6.6-8.7)
[2020-02-14] MEDS: neomycin-poly-bacitracin oint 28 gm 1 APPLIC TOPICAL (20:34)
[2020-02-14] MEDS: quetiapine 100 mg Tablet 200 MG PO (21:32)
[2020-02-14] MEDS: divalproex ER 500 mg Tablet (24H) PO (21:32)
[2020-02-14 22:00] VITALS: BP 132/84; PULSE 99; RESP 18; TEMP 36.6; O2SAT 96
[2020-02-15 06:00] VITALS: BP 128/80; PULSE 95; RESP 18; TEMP 36.5; O2SAT 98
[2020-02-15] MEDS: nicotine 2 mg Gum BUCCAL ×5 (06:18→19:37)
[2020-02-15 06:52] LABS: Chol HDL Ratio 2.87 mg/dL (1.0-5.00); Cholesterol 178 mg/dL (0-200); HDL Cholesterol 62 mg/dL (60-100); LDL Cholesterol Calculated 103 mg/dL (50-129); LDL HDL Ratio 1.66 RATIO (0.00-3.22); Triglycerides 64 mg/dL (0-150)
[2020-02-15] MEDS: citalopram 20 mg Tablet PO (08:27)
[2020-02-15] MEDS: quetiapine 25 mg Tablet 50 MG PO (11:08)
--- NOTE | 2020-02-15 11:08 | PC.NURSE ---
PRN SEROQUEL SEROQUEL 50MG PO PER PATIENT C/O ANXIETY. WILL CONTINUE TO MONITOR FOR MEDICATION EFFECTIVENESS.
--- NOTE | 2020-02-15 11:50 | PC.NURSE ---
PRN SEROQUEL FOLLOW UP MEDICATION EFFECTIVE. PATIENT LYING IN BED RESTING.
--- NOTE | 2020-02-15 12:10 | P.PN_ITS ---
Subjective NPU Subjective: Interval history: Paul presented today reporting that he is feeling better and is really beginning to focus on the possibility of discharge tomorrow. We discussed the fact that there will be a new doctor but that ultimately we need to make sure that he is well enough to independently take care of his needs. He is open to an increase in his Depakote and has tolerated the return of his medication thus far per his report. He reports that he is eating and sleeping fine. Mental Status Exam MSE Comments: This is a well-nourished, well-developed, white male, with adequate dress, grooming, and eye contact. No abnormal movements, except for improving psychomotor agitation. Cooperative with exam in no acute distress. Speech was more normal rate but normal volume. Mood described as pretty good; affect less energetic. Thought process, organized. Thought content: patient d enied any suicidal or homicidal ideation; there were no delusions reported but there are paranoid and grandiose delusions that are resolving; he denied auditory or visual hallucinations but is seen speaking to himself less, and he does appear to be attending to internal stimuli, at times. Attention and concentration are mostly intact, and memory is unreliable, but none were formally tested. He is alert and oriented times three. Insight and judgment are impaired, but improving. Vitals/I&O/Wt Last Vital Signs Temp 97.3 F L 02/15/20 22:00 Pulse 95 02/15/20 22:00 Resp 17 02/15/20 22:00 BP 123/79 02/15/20 22:00 Pulse Ox 99 02/15/20 22:00 Weight last 48 hrs Weight 81.193 kg Data NPU : 02/05/20 14:32 02/14/20 17:20 A&P Additional A&P Information This is a 45-year-old white male with a history of bipolar disorder and methamphetamine addiction who presents without a UDS with acute psychosis and presumed of methamphetamine intoxication who presents very volatile and resistant to treatment. 1. Continue current medication. Will increase Depakote ER to 500 bid. 2. We will recommend Abilify 10 mg p.o. every morning. or invega 6 mg given the CAMPA available for those medications. Will continue to offer it and see if he is willing to take it. 3. Encouraged individual, group and milieu therapy. 4. Continue to 15-minute checks for safety. 5. We will work with social work for collateral information as well as recommendations for appropriate aftercare. (2) Drug-induced psychotic disorder: (3) Methamphetamine dependence: Involuntary Hold Information 96 Hour Hold: 96 Hour Involuntary Admission: Yes 96 Hour Hold Ending Date: 02/11/20 96 Hour Hold Ending Time: 14:02 Attestations NPU Medical Necessity Statement*: Inpatient hospitalization is medically necessary and the clinically appropriate intervention at this time. We will monitor medications and add medications and adjust as indicated. Likely length of stay 4-6 days. Coding Level of Care Code Acute Parks And Recreation Manager for Brian Beltran
[2020-02-15 14:00] VITALS: BP 120/63; PULSE 87; RESP 18
[2020-02-15] MEDS: divalproex ER 500 mg Tablet (24H) PO (20:56)
[2020-02-15] MEDS: quetiapine 100 mg Tablet 200 MG PO (20:56)
--- NOTE | 2020-02-15 21:43 | PC.NURSE ---
pt given scheduled depakote and seroquel. pt was offered trazodone to aide with sleep but refused.
[2020-02-15 22:00] VITALS: BP 123/79; PULSE 95; RESP 17; TEMP 36.3; O2SAT 99
[2020-02-16] MEDS: nicotine 2 mg Gum BUCCAL ×3 (05:09→12:07)
[2020-02-16 06:00] VITALS: BP 108/70; PULSE 79; RESP 18; TEMP 36.4; O2SAT 99
[2020-02-16] MEDS: quetiapine 25 mg Tablet 50 MG PO (08:05)
[2020-02-16] MEDS: divalproex ER 500 mg Tablet (24H) PO (08:05)
[2020-02-16] MEDS: citalopram 20 mg Tablet PO (08:05)
--- NOTE | 2020-02-16 08:05 | PC.NURSE ---
PRN SEROQUEL SEROQUEL 50MG PO PER PATIENT C/O ANXIETY. WILL CONTINUE TO MONITOR FOR MEDICATION EFFECTIVENESS.
--- NOTE | 2020-02-16 11:39 | PC.SOCIAL ---
IMM was provided
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
[2020-02-16 12:57] VITALS: BP 108/70; PULSE 79; RESP 18; TEMP 36.4; O2SAT 99
== END 2020-02-16 14:10 | disposition home or self-care (01) | DRG 897 ==
LOC: ER 15:40 → NP 16:04
PROVIDERS: Admitting Provider Psychiatry & Neurology Psychiatry; Emergency Provider Emergency Medicine; Family Provider Family Medicine; Visit Provider Psychiatry & Neurology Psychiatry
DX: F15.259 Other stimulant dependence with stimulant-induced psychotic disorder, unspecified (principal); F15.20 Other stimulant dependence, uncomplicated; F20.9 Schizophrenia, unspecified; R45.850 Homicidal ideations; F12.90 Cannabis use, unspecified, uncomplicated
CPT/HCPCS: 12345; 36415; 80053; 80061; 80306; 80307; 85025; 96372; 99284; J1200; J1630; J2060

== ENCOUNTER 2020-04-15 21:49 | Inpatient (IN) | payer MEDICARE, MEDICAID, SELFPAY ==
[2020-04-15 21:50] VITALS: BP 132/93; PULSE 112; RESP 18; TEMP 37; O2SAT 97; BMI 24.7
[2020-04-15 21:54] VITALS: RESP 17
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
[2020-04-15 22:23] LABS: Basophils # 0.1 10^3/uL (0.0-0.1); Basophils % 1.3 %; Eosinophils # 0.1 10^3/uL (0.0-0.8); Eosinophils % 0.8 %; Hematocrit 41.9 % (42.0-52.0); Hemoglobin 13.3 g/dL (11.7-16.6); Lymphocytes # 2.3 10^3/uL (0.8-4.8); Lymphocytes % 30.8 %; Mean Corpuscular HGB Conc 31.7 g/dL (30.0-36.0); Mean Corpuscular Hemoglobin 31.4 pg (28.0-34.0); Mean Corpuscular Volume 99.1 fL (80-94); Mean Platelet Volume 10.3 fL (7.4-10.4); Monocytes # 0.8 10^3/uL (0.2-0.9); Monocytes % 9.9 %; Neutrophils # 4.32 10^3/uL (1.8-7.7); Neutrophils % 56.9 %; Nucleated Red Blood Cells % 0 %; Platelet Count 358 10^3/cmm (130-400); Red Blood Count 4.23 10^6/uL (4.1-5.3); Red Cell Distribution Width 12.4 % (12.1-15.1); White Blood Count 7.6 10^3/uL (4.0-10.0)
[2020-04-15] MEDS: diphenhydrAMINE 50 mg/mL SDV 1mL 25 MG IM (22:41)
[2020-04-15] MEDS: LORazepam 2 mg/mL INJ 1 mL IM (22:41)
[2020-04-15] MEDS: haloperidol inj 5 mg/mL INJ 1 mL IM (22:41)
[2020-04-15 22:42] LABS: Alanine Aminotransferase 20 U/L (0-41); Albumin Level 4.3 g/dL (3.5-5.2); Alkaline Phosphatase 60 IU/L (40-130); Anion Gap 11.5 (5-19); Aspartate Amino Transferase 24 U/L (0-40); Blood Urea Nitrogen 13 mg/dL (6-20); Calcium 10.1 mg/dL (8.5-10.5); Carbon Dioxide 29 mmol/L (22-29); Chloride 104 mmol/L (98-107); Globulin 2.9 g/dL (1.3-4.6); Glomerular Filtration Rate 121.4 mL/min (90-130); Glucose 99 mg/dL (65-115); Osmolality Calculated 286 mOsm/kg (285-295); Potassium 4.5 mmol/L (3.5-5.1); Sodium 140 mmol/L (136-145); Total Bilirubin 0.3 mg/dL (0.15-1.2); Total Protein 7.2 g/dL (6.6-8.7)
[2020-04-15 22:51] LABS: Acetaminophen < 5.0 ug/mL (10-30); Alcohol Level < 10 mg/dL (0-10); Salicylate < 0.3 mg/dL (3-10)
[2020-04-16 06:00] VITALS: RESP 16
[2020-04-16] MEDS: divalproex ER 500 mg Tablet (24H) PO ×2 (11:07→17:10)
[2020-04-16 13:41] VITALS: BP 132/77; PULSE 120; RESP 18; TEMP 36.8; O2SAT 98
[2020-04-16] MEDS: nicotine 2 mg Gum BUCCAL (13:56)
--- NOTE | 2020-04-16 15:06 | PC.NURSE ---
pt shaved face with electric razor, under staff supervision
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
[2020-04-16] MEDS: quetiapine 25 mg Tablet 50 MG PO (20:08)
[2020-04-16 22:00] VITALS: BP 136/92; PULSE 117; RESP 18; TEMP 36.7; O2SAT 97
[2020-04-17 06:00] VITALS: BP 149/94; PULSE 117; RESP 18; TEMP 36.6; O2SAT 98
[2020-04-17] MEDS: nicotine 2 mg Gum BUCCAL ×3 (06:59→13:38)
[2020-04-17] MEDS: divalproex ER 500 mg Tablet (24H) PO ×2 (08:21→16:56)
--- NOTE | 2020-04-17 08:26 | P.PN_ITS ---
Subjective NPU Subjective: Interval history: Patient is without complaint. He says that he slept well. He is very inquisitive about the physician's identity and whether he is actually a physician. Mental Status Exam MSE Comments: Mental Status Exam: The patient is an alert interpersonally engaged male appearing approximately his stated age. He is mildly irritable but displays none of the verbal aggression and defiance that has been his presentation in the past. He is not believed to be a reliable informant. Appearance: hygiene is fair; no gross neurological deficits., gait is unremarkable; AIMS=0 Speech: Speech is of normal rate and rhythm and easily understood. He perseverates over events of the past 48 hours that have resulted in the injustice of having him placed in the psychiatric unit and the missing backpack. Thought processes: Thought processes are idiosyncratic and illogical. Judgment is not adequate for safety. Associations: Loose Psychotic processes: He specifically displays paranoia involving the legal authorities. He also perseverates on issues of a nondenominational nature. There is no attention to the internal stimuli. Auditory and visual hallucinations are denied. Judgment: Insight is poor. Problem solving skills are not adequate for safety. Orientation: The patient is oriented to person, place time and situation. Memory: no deficits noted in immediate, intermediate, or remote spheres. Attention: The patient is alert and interpersonally engaged. Language: Verbalizations are coherent. Fund of knowledge: Fund of knowledge is poor Affect/Mood: Affect is grandiose with a hypomanic mood. He denies suicidal ideation Affective range constricted Psychosis: perception is significantly impaired by his grandiose delusions and poor reality testing. Vitals/I&O/Wt Last Vital Signs Temp 97.9 F 04/17/20 06:00 Pulse 117 H 04/17/20 06:00 Resp 18 04/17/20 06:00 BP 149/94 04/17/20 06:00 Pulse Ox 98 04/17/20 06:00 Weight last 48 hrs Weight 82.554 kg Data NPU : 04/15/20 22:16 04/15/20 22:16 A&P Additional A&P Information Diagnoses: Psychotic disorder not otherwise specified. Assessment:It is noted that this gentleman has a long history of methamphetamine abuse and psychosis that is assumed to be secondary to that abuse. Unfortunately, no urine drug screen was done at the time of admission and we have no idea to what degree his current psychosis is due to de gio schizophrenic break versus methamphetamine use. Treatment plan: Due to the psychiatric conditions and treatment listed in the Assessment and Plan - the patient requires continued hospitalization. Will provide a safe and therapeutic environment for patient.. Will continue inpatient treatment to allow for medication adjustment and monitoring. Hospital day #1:It is noted that this gentleman has a long history of methamphetamine abuse and psychosis that is assumed to be secondary to that abuse. Unfortunately, no urine drug screen was done at the time of admission and we have no idea to what degree his current psychosis is due to de gio schizophrenic break versus methamphetamine use. We will restart his Depakote at 500 mg twice daily and add the Seroquel 50 mg at bedtime as his his request. He will be provided a as needed Atarax for anxiety. He will be entered into the full array of individual and group therapies as part of the adult unit protocol. He will have available trained psychiatric nursing staff on a 24-hour basis. Hospital day #2: Patient is compliant with medication treatment. There is some disagreement about the dosage of Seroquel that he should be on. He had waffles back and forth between 50 and 200. He is agreeable to taking 100 at bedtime. Plan: Change Seroquel to 100 mg at bedtime. But also change as needed medications for anxiety and insomnia to Seroquel as well. Will continue current medications and monitor for medication side effects. Monitor patient's mood, sleep, appetite, and behavior closely. Encourage patient to participate in individual and group therapeutic sessions on the hill. Estimated length of stay 5 days The expected benefits and potential side effects of patient's psychiatric medications were discussed with the patient. The patient understands and consents to treatment.CRITERIA FOR DISCHARGE: stable on medications and no longer an imminent risk Involuntary Hold Information 96 Hour Hold: 96 Hour Involuntary Admission: Yes 96 Hour Hold Ending Date: 04/21/20 96 Hour Hold Ending Time: 21:49 Attestations NPU Medical Necessity Statement*: Patient will remain in the hospital another 2-4 nights for assessment of medication efficacy and tolerability. Coding Level of Care Code Acute Research Hydraulic Engineer for Brian Beltran
[2020-04-17 13:32] VITALS: BP 123/82; PULSE 81; RESP 18; TEMP 36.9
[2020-04-17 22:00] VITALS: BP 126/78; PULSE 106; RESP 23; TEMP 36.4; O2SAT 100
[2020-04-17] MEDS: quetiapine 100 mg Tablet PO (22:31)
[2020-04-18 06:00] VITALS: BP 122/91; PULSE 99; RESP 20; TEMP 36.8; O2SAT 98
--- NOTE | 2020-04-18 07:47 | P.PN_ITS ---
Subjective NPU Subjective: Interval history: The patient remains agitated, easily escalating to potential conflict with a peer, who wants nothing to do with him. He is currently on Depakote 500 twice daily, with which he was noted to be previously noncompliant and to which he has not yet responded. The patient rambles on incessantly and is intrusive, grabs my papers and nathan them. Medications: Reviewed: Yes Medication Review Details: Current Medications Acetaminophen (Tylenol) 650 mg PO Q4H PRN PRN Reason: MILD PAIN Benztropine Mesylate (Cogentin) 1 mg PO BID PRN PRN Reason: Mild Extrapyramidal symptoms Camphor/Menthol/Phenol (Blistex) 1 applic TOPICAL Q1H PRN PRN Reason: DRYNESS Diphenhydramine HCl (Benadryl) 50 mg IM ONCE PRN PRN Reason: Severe Extrapyramidal Symptoms Diphenhydramine HCl (Benadryl) 50 mg IM Q4H PRN PRN Reason: Severe Aggression Divalproex Sodium (Depakote Er) 500 mg PO BID [facility] Last Admin: 04/17/20 16:56 Dose: 500 mg Documented by: Haloperidol (Haldol) 5 mg PO Q4H PRN PRN Reason: AGITATION Haloperidol Lactate (Haldol Inj) 5 mg IM Q4H PRN PRN Reason: Severe Aggression Loperamide HCl (Imodium Capsule) 2 mg PO Q6H PRN PRN Reason: DIARRHEA Lorazepam (Ativan) 2 mg IM Q4H PRN PRN Reason: Severe Aggression Nicotine (Nicoderm 21 Mg Patch) 1 patch TRANSDERMA DAILY PRN PRN Reason: NICOTINE WITHDRAWAL Nicotine Polacrilex (Nicorette) 2 mg BUCCAL Q2H PRN PRN Reason: NICOTINE WITHDRAWAL Last Admin: 04/17/20 13:38 Dose: 2 mg Documented by: Olanzapine (Zyprexa Zydis) 5 mg PO Q4H PRN PRN Reason: Agitation/Psychosis Ondansetron HCl (Zofran) 4 mg PO Q6H PRN PRN Reason: NAUSEA AND VOMITING Quetiapine Fumarate (Seroquel) 50 mg PO BEDTIME PRN PRN Reason: INSOMNIA Quetiapine Fumarate (Seroquel) 100 mg PO BEDTIME [facility] Last Admin: 04/17/20 22:31 Dose: 100 mg Documented by: Quetiapine Fumarate (Seroquel) 50 mg PO Q4H PRN PRN Reason: ANXIETY Trazodone HCl (Desyrel) 50 mg PO BEDTIME PRN PRN Reason: SLEEP Trolamine Salicylate (Aspercreme) 1 applic TOPICAL TID [facility] Stop: 04/20/20 10:00 Last Admin: 04/17/20 22:29 Dose: 1 applic Documented by: Mental Status Exam MSE Comments: The patient has not changed significantly from the mental status described by my predecessor. He remains pressured and floridly manic not lis tening to any efforts to clarify matters for him. He is clean and neat but thought processes are racing and given to flight of ideas. He is easily agitated and has to be from other peers who, for reasons unknown to us, irritate him. He is bereft of insight and judgment but is otherwise cognitively intact. He denies suicidal or homicidal ideation, plan or intent. He denies all allegations set forth in the record including the affidavit from the activities officer. He reaches over and grabs my patient list and proceeds to scribble on it. It is difficult to redirect him. He will not accept that a 21-day hold may be in the offing. Vitals/I&O/Wt Last Vital Signs Temp 98.3 F 04/18/20 06:00 Pulse 99 04/18/20 06:00 Resp 20 H 04/18/20 06:00 BP 122/91 04/18/20 06:00 Pulse Ox 98 04/18/20 06:00 Weight last 48 hrs Weight 171 lb 3.2 oz Data NPU : 04/15/20 22:16 04/15/20 22:16 A&P Assessment and plan (1) Methamphetamine dependence: Detox is proceeding apace. The patient appears not to have untoward complications. Status: Chronic (2) Chronic schizophrenia: Patient receives quetiapine, but schizophrenia is not his major problem at this time and may not even be an accurate diagnosis. He certainly looks bipolar to me. Status: Chronic (3) Altered mood associated with qian: The patient is on divalproex 500 mg twice daily with a Depakote level pending on the morning of the . Status: Acute Involuntary Hold Information 96 Hour Hold: 96 Hour Involuntary Admission: Yes 96 Hour Hold Ending Date: 04/21/20 96 Hour Hold Ending Time: 21:49 Attestations NPU Medical Necessity Statement*: I anticipate 7 to 10 midnights additional stay Time Spent in Patient Care: Greater than 35 minutes (>than 50% of time spent in counselling and/or direct pt care on unit) . Coding Level of Care Code Acute Electronics Processing Supervisor for Brian Arriolad Diagnoses Methamphetamine dependence F15.20 Chronic schizophrenia F20.9 Altered mood associated with qian F30.9
[2020-04-18] MEDS: divalproex ER 500 mg Tablet (24H) PO ×2 (09:00→17:07)
[2020-04-18 13:34] LABS: Add Urine Microscopic? NO
[2020-04-18 13:49] LABS: Bilirubin Urine Neg (NEGATIVE); Blood Urine Neg (Negative); Glucose Urine UA Norm (Normal); Ketones Urine 1+ (Negative); Leukocyte Esterase Urine Negative (Negative); Nitrate Urine Negative (Negative); Protein Urine Neg (Negative); Urine Appearance Clear (CLEAR); Urine Color Yellow (Yellow); Urobilinogen Urine Norm (Negative); pH Urine 5 (5-7)
[2020-04-18 14:00] VITALS: BP 120/81; PULSE 111; RESP 20; TEMP 37; O2SAT 98
[2020-04-18 14:25] LABS: Amphetamines Screen Urine Negative (Negative); Barbiturates Screen Urine Negative (Negative); Benzodiazepines Screen Urine Negative (Negative); Cocaine Screen Urine Negative (Negative); Opiate Screen Urine Negative (Negative); PCP Screen Urine Negative (Negative); THC Screen Urine Positive (Negative)
[2020-04-18] MEDS: nicotine 2 mg Gum BUCCAL ×2 (17:07→20:57)
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
[2020-04-18] MEDS: quetiapine 100 mg Tablet PO (20:57)
[2020-04-18] MEDS: quetiapine 25 mg Tablet 50 MG PO (21:55)
[2020-04-18 22:00] VITALS: BP 122/79; PULSE 104; RESP 24; TEMP 36.4; O2SAT 98
--- NOTE | 2020-04-18 22:22 | PC.NURSE ---
PRN SEROQUEL PT GIVEN SEROQUEL 50 MG PO FOR SLEEP AID. WILL MONITOR FOR MEDICATION EFFECTIVENESS.
[2020-04-19 06:00] VITALS: BP 147/85; PULSE 98; RESP 18; TEMP 36.8; O2SAT 98
[2020-04-19] MEDS: nicotine 2 mg Gum BUCCAL ×5 (06:09→23:10)
[2020-04-19] MEDS: divalproex ER 500 mg Tablet (24H) PO ×2 (08:10→16:59)
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
[2020-04-19 13:56] VITALS: BP 128/93; PULSE 95; RESP 18; TEMP 36.3; O2SAT 100
--- NOTE | 2020-04-19 15:50 | PC.SOCIAL ---
Important Medicare Message Reviewed page 1 & 2 of Important Medicare Message with patient. Verbalized understanding and signed page 2. Original to patient and copy in chart.
[2020-04-19 20:52] VITALS: RESP 25
--- NOTE | 2020-04-19 20:52 | PC.NURSE ---
Patient refused vitals
[2020-04-19] MEDS: quetiapine 100 mg Tablet PO (21:35)
[2020-04-20] MEDS: nicotine 2 mg Gum BUCCAL ×4 (04:02→20:04)
[2020-04-20 06:00] VITALS: BP 115/80; PULSE 93; RESP 18; TEMP 36.6; O2SAT 100
[2020-04-20 06:57] LABS: Valproic Acid Level 46.5 ug/mL (50-100)
[2020-04-20] MEDS: divalproex ER 500 mg Tablet (24H) PO ×2 (07:55→21:12)
[2020-04-20] MEDS: neomycin-poly-bacitracin oint 28 gm 1 APPLIC TOPICAL (07:56)
--- NOTE | 2020-04-20 15:04 | P.PN_ITS ---
Subjective NPU Subjective: Interval history: This is a 45-year-old male who presents at his stated age he is of good hygiene mood is calmer and affect is less wide swinging there are no rage fits today on the other hand he is very aggressive and his demands and it looks like his thought processes appear to be speeding up. He will not allow me to speak and keeps talking we need to get that Depakote level in the near future and see how hard we need to push it. Medications: Reviewed: Yes Medication Review Details: Current Medications Acetaminophen (Tylenol) 650 mg PO Q4H PRN PRN Reason: MILD PAIN Benztropine Mesylate (Cogentin) 1 mg PO BID PRN PRN Reason: Mild Extrapyramidal symptoms Camphor/Menthol/Phenol (Blistex) 1 applic TOPICAL Q1H PRN PRN Reason: DRYNESS Diphenhydramine HCl (Benadryl) 50 mg IM ONCE PRN PRN Reason: Severe Extrapyramidal Symptoms Diphenhydramine HCl (Benadryl) 50 mg IM Q4H PRN PRN Reason: Severe Aggression Divalproex Sodium (Depakote Er) 500 mg PO BID [facility] Last Admin: 04/20/20 07:55 Dose: 500 mg Documented by: Haloperidol (Haldol) 5 mg PO Q4H PRN PRN Reason: AGITATION Haloperidol Lactate (Haldol Inj) 5 mg IM Q4H PRN PRN Reason: Severe Aggression Loperamide HCl (Imodium Capsule) 2 mg PO Q6H PRN PRN Reason: DIARRHEA Lorazepam (Ativan) 2 mg IM Q4H PRN PRN Reason: Severe Aggression Neomycin/Polymyxin/Bacitracin (Neosporin Oint Tube) 1 applic TOPICAL BID [facility] Last Admin: 04/20/20 07:56 Dose: 1 applic Documented by: Nicotine (Nicoderm 21 Mg Patch) 1 patch TRANSDERMA DAILY PRN PRN Reason: NICOTINE WITHDRAWAL Nicotine Polacrilex (Nicorette) 2 mg BUCCAL Q2H PRN PRN Reason: NICOTINE WITHDRAWAL Last Admin: 04/20/20 14:16 Dose: 2 mg Documented by: Olanzapine (Zyprexa Zydis) 5 mg PO Q4H PRN PRN Reason: Agitation/Psychosis Ondansetron HCl (Zofran) 4 mg PO Q6H PRN PRN Reason: NAUSEA AND VOMITING Quetiapine Fumarate (Seroquel) 50 mg PO BEDTIME PRN PRN Reason: INSOMNIA Last Admin: 04/18/20 21:55 Dose: 50 mg Documented by: Quetiapine Fumarate (Seroquel) 100 mg PO BEDTIME [facility] Last Admin: 04/19/20 21:35 Dose: 100 mg Documented by: Quetiapine Fumarate (Seroquel) 50 mg PO Q4H PRN PRN Reason: ANXIETY Trazodone HCl (Desyrel) 50 mg PO BEDTIME PRN PRN Reason: SLEEP Mental Status Exam MSE Comments: This is a 45-year-old male who presents at his stated age. He is of good hygiene. Mood is irritable today and affect is more wide swinging. There are still no rage fits today. Thought processes are less organized and seem to be racing and disorganized. There is no immediate evidence of psychosis, such as had previously been the case. Cognitive functions were always intact, although impaired by his mental disorder, but far less so now. Speech is unfortunately pressured. Vitals/I&O/Wt Last Vital Signs Temp 97.8 F 04/20/20 06:00 Pulse 93 04/20/20 06:00 Resp 18 04/20/20 06:00 BP 115/80 04/20/20 06:00 Pulse Ox 100 04/20/20 06:00 Physical Exam Narrative: EXAM NARRATIVE: HENMT: normocephalic MOUTH: Normal oral and palatal mucosa present THROAT: posterior oropharynx normal, uvula midline Neck/C-Spine: supple normal visual inspection Resp: normal respiratory effort, No retractions, No use of accessory muscles and clear to auscultation bilaterally Cardio: regular rate, regular rhythm, S1 normal heart sound present, S2 normal heart sound present, No gallops present (Cardio), No clicks present (Cardio), No murmurs present (Cardio) and Peripheral pulses 2+ throughout RATE: regular rate RHYTHM: regular rhythm HEART SOUNDS: S1 normal heart sound present and S2 normal heart sound present PERIPHERAL PULSES: Peripheral pulses 2+ throughout GI: Normal to inspection, nondistended, normoactive bowel sounds present, Soft to palpation, non-tender and no masses : Yes no CVA tenderness BLADDER/KIDNEY EXAM: Yes no CVA tenderness Back/Pelvis: no CVA tenderness Extremity: normal to inspection above the ankle. Patient has blister on big toe. Neuro: Data NPU : 04/15/20 22:16 04/15/20 22:16 Involuntary Hold Information 96 Hour Hold: 96 Hour Involuntary Admission: Yes 96 Hour Hold Ending Date: 04/21/20 96 Hour Hold Ending Time: 21:49 Attestations NPU Medical Necessity Statement*: I anticipate 5 to 7 days hospitalization. Coding Level of Care Code Acute Director Of Mechanical Engineering for Brian Beltran
[2020-04-20 19:56] VITALS: RESP 19
--- NOTE | 2020-04-20 19:56 | PC.NURSE ---
Pt refused vitals.
[2020-04-20] MEDS: quetiapine 100 mg Tablet PO (21:12)
[2020-04-20] MEDS: sulfamethoxazole-trimeth DS 160-800 mg Tablet 1 TAB PO (21:32)
[2020-04-21] MEDS: nicotine 2 mg Gum BUCCAL ×2 (03:25→15:55)
[2020-04-21 05:54] VITALS: BP 126/87; PULSE 88; RESP 17; TEMP 36.6; O2SAT 98
[2020-04-21] MEDS: divalproex ER 500 mg Tablet (24H) PO ×2 (08:36→20:26)
[2020-04-21] MEDS: sulfamethoxazole-trimeth DS 160-800 mg Tablet 1 TAB PO ×2 (08:36→17:57)
--- NOTE | 2020-04-21 09:54 | PM.NPN ---
Subjective NPU Subjective: Interval history: Patient is completely out of control. He negotiates different times for administration of his Depakote and sometimes will not take it. He is highly pressured in speech, has racing thoughts and is bereft of insight and judgment. He thinks he is leaving today. However guardianship hearing will take place today. Medications: Medication Review Details: Current Medications Acetaminophen (Tylenol) 650 mg PO Q4H PRN PRN Reason: MILD PAIN Benztropine Mesylate (Cogentin) 1 mg PO BID PRN PRN Reason: Mild Extrapyramidal symptoms Camphor/Menthol/Phenol (Blistex) 1 applic TOPICAL Q1H PRN PRN Reason: DRYNESS Diphenhydramine HCl (Benadryl) 50 mg IM ONCE PRN PRN Reason: Severe Extrapyramidal Symptoms Diphenhydramine HCl (Benadryl) 50 mg IM Q4H PRN PRN Reason: Severe Aggression Divalproex Sodium (Depakote Er) 500 mg PO DAILY [facility] Last Admin: 04/21/20 08:36 Dose: 500 mg Documented by: Divalproex Sodium (Depakote Er) 500 mg PO 1999 [facility] Last Admin: 04/20/20 21:12 Dose: 500 mg Documented by: Haloperidol (Haldol) 5 mg PO Q4H PRN PRN Reason: AGITATION Haloperidol Lactate (Haldol Inj) 5 mg IM Q4H PRN PRN Reason: Severe Aggression Loperamide HCl (Imodium Capsule) 2 mg PO Q6H PRN PRN Reason: DIARRHEA Lorazepam (Ativan) 2 mg IM Q4H PRN PRN Reason: Severe Aggression Neomycin/Polymyxin/Bacitracin (Neosporin Oint Tube) 1 applic TOPICAL BID [facility] Last Admin: 04/21/20 08:35 Dose: Not Given Documented by: Nicotine (Nicoderm 21 Mg Patch) 1 patch TRANSDERMA DAILY PRN PRN Reason: NICOTINE WITHDRAWAL Nicotine Polacrilex (Nicorette) 2 mg BUCCAL Q2H PRN PRN Reason: NICOTINE WITHDRAWAL Last Admin: 04/21/20 03:25 Dose: 2 mg Documented by: Olanzapine (Zyprexa Zydis) 5 mg PO Q4H PRN PRN Reason: Agitation/Psychosis Ondansetron HCl (Zofran) 4 mg PO Q6H PRN PRN Reason: NAUSEA AND VOMITING Quetiapine Fumarate (Seroquel) 50 mg PO BEDTIME PRN PRN Reason: INSOMNIA Last Admin: 04/18/20 21:55 Dose: 50 mg Documented by: Quetiapine Fumarate (Seroquel) 100 mg PO BEDTIME [facility] Last Admin: 04/20/20 21:12 Dose: 100 mg Documented by: Quetiapine Fumarate (Seroquel) 50 mg PO Q4H PRN PRN Reason: ANXIETY Trazodone HCl (Desyrel) 50 mg PO BEDTIME PRN PRN Reason: SLEEP Trimethoprim/Sulfamethoxazole (Bactrim Ds) 1 tab PO BID [facility]; Protocol Stop: 04/27/20 20:59 Last Admin: 04/21/20 08:36 Dose: 1 tab Documented by: Mental Status Exam MSE Comments: This is a 45-year-old male who presents at his stated age. He is of good hygiene. Mood is irritable today and affect is more wide swinging. There are still no rage fits today. Thought processes are less organized and seem to be racing and disorganized. There is no immediate evidence of psychosis, such as had previously been the case. Cognitive functions were always intact, although impaired by his mental disorder, but far less so now. Sadly the patient is bereft of insight and judgment. Speech is pressured. The patient is, in a phrase, floridly manic. Vitals/I&O/Wt Last Vital Signs Temp 97.9 F 04/21/20 05:54 Pulse 88 04/21/20 05:54 Resp 17 04/21/20 05:54 BP 126/87 04/21/20 05:54 Pulse Ox 98 04/21/20 05:54 Physical Exam Narrative: EXAM NARRATIVE: HENMT: normocephalic MOUTH: Normal oral and palatal mucosa present THROAT: posterior oropharynx normal, uvula midline Neck/C-Spine: supple normal visual inspection Resp: normal respiratory effort, No retractions, No use of accessory muscles and clear to auscultation bilaterally Cardio: regular rate, regular rhythm, S1 normal heart sound present, S2 normal heart sound present, No gallops present (Cardio), No clicks present (Cardio), No murmurs present (Cardio) and Peripheral pulses 2+ throughout RATE: regular rate RHYTHM: regular rhythm HEART SOUNDS: S1 normal heart sound present and S2 normal heart sound present PERIPHERAL PULSES: Peripheral pulses 2+ throughout GI: Normal to inspection, nondistended, normoactive bowel sounds present, Soft to palpation, non-tender and no masses : Yes no CVA tenderness BLADDER/KIDNEY EXAM: Yes no CVA tenderness Back/Pelvis: no CVA tenderness Extremity: normal to inspection above the ankle. Patient has blister on big toe. Data NPU : 04/15/20 22:16 04/15/20 22:16 Involuntary Hold Information 96 Hour Hold: 96 Hour Involuntary Admission: Yes 96 Hour Hold Ending Date: 04/21/20 96 Hour Hold Ending Time: 21:49 Attestations NPU Medical Necessity Statement*: HENMT: normocephalic MOUTH: Normal oral and palatal mucosa present THROAT: posterior oropharynx normal, uvula midline Neck/C-Spine: supple normal visual inspection Resp: normal respiratory effort, No retractions, No use of accessory muscles and clear to auscultation bilaterally Cardio: regular rate, regular rhythm, S1 normal heart sound present, S2 normal heart sound present, No gallops present (Cardio), No clicks present (Cardio), No murmurs present (Cardio) and Peripheral pulses 2+ throughout RATE: regular rate RHYTHM: regular rhythm HEART SOUNDS: S1 normal heart sound present and S2 normal heart sound present PERIPHERAL PULSES: Peripheral pulses 2+ throughout GI: Normal to inspection, nondistended, normoactive bowel sounds present, Soft to palpation, non-tender and no masses : Yes no CVA tenderness BLADDER/KIDNEY EXAM: Yes no CVA tenderness Back/Pelvis: no CVA tenderness Extremity: normal to inspection above the ankle. Patient has blister on big toe. Time Spent in Patient Care: Greater than 35 minutes (>than 50% of time spent in counselling and/or direct pt care on unit). Coding Level of Care Code Acute Field Training Manager for Brian Beltran
[2020-04-21 14:00] VITALS: RESP 18
[2020-04-21] MEDS: quetiapine 100 mg Tablet PO (20:24)
[2020-04-21] MEDS: quetiapine 25 mg Tablet 50 MG PO (20:24)
[2020-04-21] MEDS: trazodone 50 mg Tablet PO (20:24)
[2020-04-21 22:00] VITALS: RESP 19
[2020-04-22] MEDS: nicotine 2 mg Gum BUCCAL ×3 (03:08→23:02)
[2020-04-22 06:00] VITALS: PULSE 21
[2020-04-22] MEDS: sulfamethoxazole-trimeth DS 160-800 mg Tablet 1 TAB PO ×2 (08:26→17:08)
[2020-04-22] MEDS: divalproex ER 500 mg Tablet (24H) PO ×2 (08:26→21:59)
--- NOTE | 2020-04-22 10:57 | P.PN_ITS ---
Subjective NPU Subjective: Interval history: The patient presents today reporting that he just wants to leave. I asked him about his hearing for guardianship and he reports that he does not know what happened. He later revealed that the police came to serve him papers, and he pulled his hands back and said he did not want to touch the papers, and the police told him, according to him, that he did not need to have them if he did not want them. He asked me when he would be leaving and I explained to him that I need to find out if he does in fact have a guardian because I have not seen the paperwork, but if he does then it will be up to the guardian, which he was not happy with. We continued to discuss the possibilities where he would go, which he was sort of saying he was open to some kind of placement, but then he just seemed to decide against it. Mental Status Exam MSE Comments: This is a well-nourished, well-developed, white male, with adequate dress, grooming, and eye contact. No abnormal movements except for psychomotor agitation. Semi-cooperative with exam in mild distress. Speech was increased rate and volume. Mood described as fine; affect, energetic. Thought process, mostly organized. Thought content: patient denied any suicidal or homicidal ideation, there were no delusions reported but clear hyper-anglican persecutory delusions exist. He did not appear to be attending to internal stimuli. Insight and judgment are limited. Impulse control is impaired. Vitals/I&O/Wt Last Vital Signs Temp 97.9 F 04/21/20 05:54 Pulse 18 L 04/22/20 14:00 Resp 23 H 04/22/20 20:31 BP 126/87 04/21/20 05:54 Pulse Ox 98 04/21/20 05:54 Data NPU : 04/15/20 22:16 04/15/20 22:16 A&P Assessment and plan (1) Altered mood associated with qian: Status: Acute (2) Methamphetamine dependence: Status: Chronic (3) Chronic schizophrenia: Status: Chronic Additional A&P Information This is a 45 year old, white male, with bipolar disorder, versus schizoaffective disorder, who presents with likely med-nonadherence and return of his psychosis. Continue current medication except: Need to encourage him taking a long acting injectable for him to have a chance of maintaining his mental health. Encourage individual, group, and milieu therapy. Continue q 15-minute checks for safety. Will work with guardian for discharge possibilities. Involuntary Hold Information 96 Hour Hold: 96 Hour Involuntary Admission: Yes 96 Hour Hold Ending Date: 04/21/20 96 Hour Hold Ending Time: 21:49 Attestations NPU Medical Necessity Statement*: Inpatient hospitalization is medically necessary and the clinically appropriate intervention at this time. We will monitor his medications and make changes as indicated. Likely length of stay five to seven days. Coding Level of Care Code Acute Floater Operator for Brian Fwd Diagnoses Altered mood associated with qian F30.9 Methamphetamine dependence F15.20 Chronic schizophrenia F20.9
[2020-04-22 14:00] VITALS: PULSE 18
--- NOTE | 2020-04-22 16:48 | PC.NURSE ---
patient refused vital signs.
[2020-04-22 20:31] VITALS: RESP 23
[2020-04-22] MEDS: quetiapine 100 mg Tablet PO (21:59)
[2020-04-23] MEDS: nicotine 2 mg Gum BUCCAL ×2 (04:01→17:43)
[2020-04-23 06:00] VITALS: RESP 18
[2020-04-23] MEDS: OLANZapine 5 mg ODT PO (07:57)
[2020-04-23] MEDS: divalproex ER 500 mg Tablet (24H) PO ×2 (07:58→22:13)
[2020-04-23] MEDS: quetiapine 25 mg Tablet 50 MG PO (08:26)
[2020-04-23] MEDS: sulfamethoxazole-trimeth DS 160-800 mg Tablet 1 TAB PO ×2 (08:28→17:42)
--- NOTE | 2020-04-23 09:38 | PC.NURSE ---
Patient Behavior/Code 10 Around 0850 patient began yelling that he wanted to leave. He began punching the nurse station glass and kicking the wall and threw a trash can. Verbal de-escalation by staff was unsuccessful so a code 10 called at 0905. Security, NPU supervisor multifocal lens and several staff present. I remained behind the desk because patient was targeting me making statements such as *ig*er loving bitch . Patient refused medication for anxiety. Security and staff were able to re-direct patient at this time. Patient has a guardian and she was notified.
--- NOTE | 2020-04-23 10:02 | P.PN_ITS ---
Subjective NPU Subjective: Interval history: Paul presents today fairly agitated and reporting that he wants to leave. We discussed again that he has a guardian, and he feels like since he did not touch the paper that had the information on it, he does not really have a guardian, and he wants to leave. Much like he has in the past, he got angry and spent most of the day doing racist commentary, raising his hand, and saying ?heil nigger? as an image to how Hitler and things of that nature. He was sitting in his room having a full conversation with the mirror when I went to see him. He has not had any physical aggression, but he seems to be moving in that direction. Mental Status Exam MSE Comments: This is a well-nourished, well-developed, white male, with a bengali, with adequate dress, grooming, and eye contact. No abnormal movements except for psychomotor agitation. Semi-cooperative with exam in mild to moderate distress. Speech was increased rate and volume. Mood described as pissed affect congruent. Thought process, organized. Thought content: patient denied any suicidal or homicidal ideation, there were no delusions reported but clear persecutory, paranoid, and hyper-zoroastrian delusions exist. He has appeared at times to be attending to internal stimuli. Attention and concentration are limited. Memory is unreliable but none were formally tested. Alert and oriented times person and place. Insight and judgment are impaired. Impulse control is impaired. Vitals/I&O/Wt Last Vital Signs Temp 97.9 F 04/21/20 05:54 Pulse 18 L 04/22/20 14:00 Resp 18 04/23/20 22:00 BP 126/87 04/21/20 05:54 Pulse Ox 98 04/21/20 05:54 Data NPU : 04/15/20 22:16 04/15/20 22:16 A&P Additional A&P Information (1) Altered mood associated with qian: (2) Methamphetamine dependence: (3) Chronic schizophrenia: This is a 45 year old, white male, with bipolar disorder, versus schizoaffective disorder, who presents with likely med-nonadherence and return of his psychosis. Continue current medication except: Need to encourage him taking a long acting injectable for him to have a chance of maintaining his mental health. Encourage individual, group, and milieu therapy. Continue q 15-minute checks for safety. Will work with guardian for discharge possibilities. Involuntary Hold Information 96 Hour Hold: 96 Hour Involuntary Admission: Yes 96 Hour Hold Ending Date: 04/21/20 96 Hour Hold Ending Time: 21:49 Attestations NPU Medical Necessity Statement*: Inpatient hospitalization is medically necessary and the clinically appropriate intervention at this time. We will monitor his medications and make changes as indicated. Likely length of stay five to seven days. Coding Level of Care Code Acute Senior Analyst Market Intelligence for Brian Beltran
--- NOTE | 2020-04-23 10:39 | PC.NURSE ---
SPOKE WITH PATIENTS GUARDIAN NORAH OLIVO, OVER THE PHONE WHO GAVE PERMISSION/CONSENT TO TREAT PATIENT AND GIVE INJECTIONS NEEDED.
[2020-04-23 14:00] VITALS: RESP 18
[2020-04-23] MEDS: neomycin-poly-bacitracin oint 28 gm 1 APPLIC TOPICAL (18:45)
[2020-04-23 22:00] VITALS: RESP 18
[2020-04-23] MEDS: quetiapine 100 mg Tablet PO (22:06)
--- NOTE | 2020-04-23 22:22 | PC.NURSE ---
Patient refused to let staff get vitals. Respirations were taken.
[2020-04-24] MEDS: nicotine 2 mg Gum BUCCAL ×3 (04:59→22:18)
[2020-04-24 06:00] VITALS: RESP 18
--- NOTE | 2020-04-24 06:21 | PC.NURSE ---
Patient refused vitals. Respirations were taken.
[2020-04-24] MEDS: divalproex ER 500 mg Tablet (24H) PO ×2 (09:08→22:17)
[2020-04-24] MEDS: sulfamethoxazole-trimeth DS 160-800 mg Tablet 1 TAB PO ×2 (09:08→17:02)
--- NOTE | 2020-04-24 13:27 | PM.NPN ---
Subjective NPU Subjective: Interval history: The patient presents today reporting that things are going okay, but he was agitated from the very moment he saw me. I tried to talk to him briefly about the possibility of a long acting injectable like Abilify, using the strategy that he would be able to get out of here sooner if he started on medication like that, which might be effective. He seemed to understand but refused the trial and then spent the rest of the time screaming how he hates niggers and was yelling that long after I left the room. Mental Status Exam MSE Comments: This is a white male, with adequate dress, grooming, and eye contact. No abnormal movements. Cooperative with exam in no acute distress. Speech was normal rate and volume. Mood described as good; affect congruent. Thought process, organized. Thought content: patient denied any suicidal or homicidal ideation, there were no delusions reported or noted, patient denied any auditory or visual hallucinations. Attention, concentration, and memory appeared intact but were not formally tested. Alert and oriented times three. Insight and judgment are good. Vitals/I&O/Wt Last Vital Signs Temp 98.4 F 04/24/20 14:00 Pulse 78 04/24/20 14:00 Resp 18 04/24/20 14:00 BP 134/82 04/24/20 14:00 Pulse Ox 98 04/21/20 05:54 Weight last 48 hrs Weight 81.193 kg Data NPU : 04/15/20 22:16 04/15/20 22:16 A&P Additional A&P Information (1) Altered mood associated with qian: (2) Methamphetamine dependence: (3) Chronic schizophrenia: This is a 45 year old, white male, with bipolar disorder, versus schizoaffective disorder, who presents with likely med-nonadherence and return of his psychosis. Continue current medication except: Need to encourage him taking a long acting injectable for him to have a chance of maintaining his mental health. Encourage individual, group, and milieu therapy. Continue q 15-minute checks for safety. Will work with guardian for discharge possibilities. Involuntary Hold Information 96 Hour Hold: 96 Hour Involuntary Admission: Yes 96 Hour Hold Ending Date: 04/21/20 96 Hour Hold Ending Time: 21:49 Attestations NPU Medical Necessity Statement*: Inpatient hospitalization is medically necessary and the clinically appropriate intervention at this time. We will monitor his medications and make changes as indicated. Likely length of stay five to seven days. Coding Level of Care Code Acute Lead Inspector for Brian Beltran
[2020-04-24 14:00] VITALS: BP 134/82; PULSE 78; RESP 18; TEMP 36.9
[2020-04-24 22:00] VITALS: RESP 18
--- NOTE | 2020-04-24 22:08 | PC.NURSE ---
Patient refused vitals. Respirations were taken.
[2020-04-24] MEDS: quetiapine 100 mg Tablet PO (22:18)
[2020-04-25 06:00] VITALS: BP 122/82; PULSE 115; RESP 17; TEMP 36.6; O2SAT 96
--- NOTE | 2020-04-25 07:55 | PC.NURSE ---
CLIENT BEHAVIOR; CLIENT IS CURRENTLY PACING THE [place] CURSING RACIAL SLURS DIRECTED AT THE DR. THIS MORNING. CLIENT CONTINUES TO BE AGITATED ABOUT BEING CONFINED HERE ON THE UNIT. STAFF WILL CONTINUE TO MONITOR.
[2020-04-25] MEDS: divalproex ER 500 mg Tablet (24H) PO ×2 (08:07→20:54)
[2020-04-25] MEDS: sulfamethoxazole-trimeth DS 160-800 mg Tablet 1 TAB PO ×2 (08:07→17:21)
[2020-04-25] MEDS: nicotine 2 mg Gum BUCCAL ×2 (08:11→20:54)
--- NOTE | 2020-04-25 13:55 | PM.NPN ---
Subjective NPU Subjective: Interval history: Paul presents today continuing his threatening gestures and speaking to himself incessantly in the mirror. He continues to rant about being the [employer] related to, what he owns. He continues to threaten this science writer in addition to finding as many creative ways as he can to call me a Nigger. To bring attention to the fact that emboli to say things about black culture. As he was starting to escalate security came back in he ranted about how he can kick our asses. At one point he said that he was going to get a gun and shoot me. He also talked about how one of the members of the local gangs would end up killing me at some point. Mental Status Exam MSE Comments: This is a well-nourished well-developed white male with adequate dress grooming and eye contact. No abnormal movements except for significant psychomotor agitation and uncooperative with exam in mild to moderate distress. Speech was increased rate and volume mood described as fine, affect irritable thought process organized at times thought content: Patient denies suicidal or homicidal ideation but he may threats to kill this science writer. There were no delusions reported that he continued having paranoid, persecutory and hyper uatsdin delusions. He did not appear to be attending to internal stimuli but he spent a lot of time sitting in his room across from the mirror carrying on full conversations. Attention is intact concentration is limited memory is unreliable but none were formally tested. He is alert and oriented times person and place. Insight and judgment are impaired, impulse control is impaired. Vitals/I&O/Wt Last Vital Signs Temp 97.9 F 04/25/20 06:00 Pulse 95 04/25/20 20:23 Resp 17 04/25/20 06:00 BP 122/82 04/25/20 06:00 Pulse Ox 97 04/25/20 20:23 Weight last 48 hrs Weight 81.193 kg Data NPU : 04/15/20 22:16 04/15/20 22:16 A&P Additional A&P Information (1) Altered mood associated with qian: (2) Methamphetamine dependence: (3) Chronic schizophrenia: This is a 45 year old, white male, with bipolar disorder, versus schizoaffective disorder, who presents with likely med-nonadherence and return of his psychosis. Continue current medication except: Need to encourage him taking a long acting injectable for him to have a chance of maintaining his mental health. Encourage individual, group, and milieu therapy. Continue q 15-minute checks for safety. Will work with guardian for discharge possibilities. Involuntary Hold Information 96 Hour Hold: 96 Hour Involuntary Admission: Yes 96 Hour Hold Ending Date: 04/21/20 96 Hour Hold Ending Time: 21:49 Attestations NPU Medical Necessity Statement*: Inpatient hospitalization is medically necessary and the clinically appropriate intervention at this time. We will monitor his medications and make changes as indicated. Likely length of stay five to seven days. Coding Level of Care Code Acute Launching Pad Mechanic for Brian Beltran
[2020-04-25 14:00] VITALS: RESP 18
[2020-04-25] MEDS: neomycin-poly-bacitracin oint 28 gm 1 APPLIC TOPICAL (17:25)
--- NOTE | 2020-04-25 18:34 | PC.NURSE ---
Patient refused vital signs.
[2020-04-25 20:23] VITALS: PULSE 95; RESP 18; O2SAT 97
[2020-04-25] MEDS: quetiapine 100 mg Tablet PO (20:54)
[2020-04-26 04:59] VITALS: RESP 17
[2020-04-26] MEDS: nicotine 2 mg Gum BUCCAL (06:54)
[2020-04-26] MEDS: sulfamethoxazole-trimeth DS 160-800 mg Tablet 1 TAB PO ×2 (08:45→17:21)
[2020-04-26] MEDS: divalproex ER 500 mg Tablet (24H) PO ×2 (08:45→21:40)
--- NOTE | 2020-04-26 12:23 | PM.NPN ---
Subjective NPU Subjective: Interval history: Paul presents today continuing to have his normal banter, continuing to threaten to shoot this telegraphic typewriter operator, continuing to cause this telegraphic typewriter operator a nigger and different names, suggesting that I think that I am tough, and suggesting that I shoot him in the head when we see each other outside of the hospital, but assuring me that the bullet will bounce off of his head and hit me. After multiple attempts to get him to take some medication other than the medication he is taking, a team was called, and he was given an injection. To his credit, he actually accepted the injection and did not need to have aggressive tactics used to administer the injection. He then spent the rest of the time making sure we understood that he was not hurt by it, and shots do not do anything to him. He later rested comfortably. Mental Status Exam MSE Comments: This is a well-nourished well-developed white male with adequate dress grooming and eye contact. No abnormal movements except for significant psychomotor agitation and uncooperative with exam in mild to moderate distress. Speech was increased rate and volume mood described as I'm great, affect irritable. thought process organized at times thought content: Patient denies suicidal or homicidal ideation but he may threats to kill this telegraphic typewriter operator. There were no delusions reported that he continued having paranoid, persecutory and hyper rastafarian delusions. He did not appear to be attending to internal stimuli but he spent a lot of time sitting in his room across from the mirror carrying on full conversations. Attention is intact concentration is limited memory is unreliable but none were formally tested. He is alert and oriented times person and place. Insight and judgment are impaired, impulse control is impaired. Vitals/I&O/Wt Last Vital Signs Temp 97.9 F 04/25/20 06:00 Pulse 95 04/25/20 20:23 Resp 17 04/26/20 04:59 BP 122/82 04/25/20 06:00 Pulse Ox 97 04/25/20 20:23 Weight last 48 hrs Weight 81.193 kg Data NPU : 04/15/20 22:16 04/15/20 22:16 A&P Additional A&P Information (1) Altered mood associated with qian: (2) Methamphetamine dependence: (3) Chronic schizophrenia: This is a 45 year old, white male, with bipolar disorder, versus schizoaffective disorder, who presents with likely med-nonadherence and return of his psychosis. Continue current medication except: Need to encourage him taking a long acting injectable for him to have a chance of maintaining his mental health. Encourage individual, group, and milieu therapy. Continue q 15-minute checks for safety. Will work with guardian for discharge possibilities. Involuntary Hold Information 96 Hour Hold: 96 Hour Involuntary Admission: Yes 96 Hour Hold Ending Date: 04/21/20 96 Hour Hold Ending Time: 21:49 Attestations NPU Medical Necessity Statement*: Inpatient hospitalization is medically necessary and the clinically appropriate intervention at this time. We will monitor his medications and make changes as indicated. Likely length of stay five to seven days. Coding Level of Care Code Acute Electric Meter Repairer Apprentice for Brian Beltran
[2020-04-26 14:00] VITALS: RESP 20
[2020-04-26] MEDS: LORazepam 2 mg/mL INJ 1 mL IM (14:05)
[2020-04-26] MEDS: haloperidol inj 5 mg/mL INJ 1 mL IM (14:05)
[2020-04-26] MEDS: diphenhydrAMINE 50 mg/mL SDV 1mL IM (14:05)
--- NOTE | 2020-04-26 14:05 | PC.NURSE ---
Addendum entered by Lorena Martinez LPN 04/26/20 14:53: MEDICATION EFFECTIVE. PATIENT IS LYING IN BED RESTING, RESPIRATIONS EVEN AND UNLABORED. Original Note: PRN ATIVAN, HALDOL AND BENADRYL ATIVAN 2MG IM, HALDOL 5MG IM AND BENADRYL 50MG IM TO RIGHT DELTOID FOR SEVERE AGITATION. PATIENT YELLING AT THE DOCTOR AND STATED THAT HE WANTED TO SHOOT HIM IN THE HEAD. PATIENT CONTINUED TO ESCALATE. PATIENT TOOK MEDICATION WILLINGLY. WILL CONTINUE TO MONITOR FOR MEDICATION EFFECTIVENESS.
--- NOTE | 2020-04-26 17:08 | PC.NURSE ---
Patient refused vital signs.
[2020-04-26 20:05] VITALS: RESP 16
[2020-04-26] MEDS: quetiapine 100 mg Tablet PO (21:40)
[2020-04-27] MEDS: nicotine 2 mg Gum BUCCAL ×3 (04:55→16:47)
[2020-04-27 06:00] VITALS: RESP 15
[2020-04-27] MEDS: divalproex ER 500 mg Tablet (24H) PO ×2 (08:12→21:34)
[2020-04-27] MEDS: sulfamethoxazole-trimeth DS 160-800 mg Tablet 1 TAB PO ×2 (08:12→17:11)
[2020-04-27] MEDS: paliperidone ER 6 mg Tablet PO (13:58)
--- NOTE | 2020-04-27 14:57 | P.PN_ITS ---
Subjective NPU Subjective: Interval history: Paul presents today as a kind of dichotomy of behavior. He accepted Invega which we had discussed as a possible precursor to an injection that would allow him to go once a month or once every three months in his medication, and he flatly refused. Today when the medication arrived, he took it without incident and seemed to be doing much better. He even came back and apologized to me for earlier behavior, but then later in the day when there were other individuals that were lobbying for discharge and feeling that being here was unfair, he got re-activated and started making threats, saying that in a previous hospitalization, I lied in court and going back to the [employer] thing. Otherwise, he was showing some improvement. Mental Status Exam MSE Comments: This is a well-nourished well-developed white male with adequate dress grooming and eye contact. No abnormal movements except for significant psychomotor agitation but he did have some moments during the day that he did slow down and appeared more redirectable. uncooperative with exam in mild to moderate distress. Speech was increased rate and volume mood described as good, affect less irritable at times. thought process organized at times thought content: Patient denies suicidal or homicidal ideation but he made threats to kill this process description writer. There were no delusions reported that he continued having paranoid, persecutory and hyper church delusions. He did not appear to be attending to internal stimuli but he spent a lot of time sitting in his room across from the mirror carrying on full conversations. Attention is intact concentration is limited memory is unreliable but none were formally tested. He is alert and oriented times person and place. Insight and judgment are i mpaired, impulse control is impaired. Vitals/I&O/Wt Last Vital Signs Temp 97.9 F 04/25/20 06:00 Pulse 95 04/25/20 20:23 Resp 17 04/27/20 20:05 BP 122/82 04/25/20 06:00 Pulse Ox 97 04/25/20 20:23 Data NPU : 04/15/20 22:16 04/15/20 22:16 A&P Additional A&P Information (1) Altered mood associated with qian: (2) Methamphetamine dependence: (3) Chronic schizophrenia: This is a 45 year old, white male, with bipolar disorder, versus schizoaffective disorder, who presents with likely med-nonadherence and return of his psychosis. Continue current medication except: He did start Invega 6 mg and hopefully he will allow for the long acting injectable to be started in the next few days.. Encourage individual, group, and milieu therapy. Continue q 15-minute checks for safety. Will work with guardian for discharge possibilities. Involuntary Hold Information 96 Hour Hold: 96 Hour Involuntary Admission: Yes 96 Hour Hold Ending Date: 04/21/20 96 Hour Hold Ending Time: 21:49 Attestations NPU Medical Necessity Statement*: Inpatient hospitalization is medically necessary and the clinically appropriate intervention at this time. We will monitor his medications and make changes as indicated. Likely length of stay five to seven days. Coding Level of Care Code Acute Director Of Academic for Brian Beltran
[2020-04-27 20:05] VITALS: RESP 17
[2020-04-27] MEDS: quetiapine 100 mg Tablet PO (21:34)
[2020-04-28] MEDS: nicotine 2 mg Gum BUCCAL ×4 (04:44→18:42)
[2020-04-28 06:00] VITALS: RESP 16
[2020-04-28] MEDS: paliperidone ER 6 mg Tablet PO (09:08)
[2020-04-28] MEDS: divalproex ER 500 mg Tablet (24H) PO ×3 (09:08→21:36)
--- NOTE | 2020-04-28 10:49 | P.PN_ITS ---
Subjective NPU Subjective: Interval history: Paul presents today taking the medication without much resistance but being frustrated afterwards saying that he had to take it and did not like it. His behavior continues to trend towards being manageable and seeming less volatile and less likely to act out. Now his focus is mostly on medication, reporting that he is open to going to placement, but somewhat does not like the fact that they are taking his money. No real negativity toward this appeals writer today, reporting that he is eating and sleeping okay. Mental Status Exam MSE Comments: This is a well-nourished well-developed white male with adequate dress grooming and eye contact. No abnormal movements except for improving psychomotor agitation and appearing more redirectable. More cooperative with exam in mild distress. Speech was More normal rate and volume. mood described as ok when are you gonna let me leave, affect less irritable. thought process organized at times thought content: Patient denies suicidal or homicidal ideation. There were no delusions reported, he continued having paranoid, persecutory and hyper worship delusions. He did not appear to be attending to internal. Attention is intact concentration is improving. memory is unreliable but none were formally tested. He is alert and oriented times person and place. Insight and judgment are impaired, but improving, impulse control is impaired. Vitals/I&O/Wt Last Vital Signs Temp 98.4 F 04/28/20 21:27 Pulse 96 04/28/20 21:27 Resp 22 H 04/28/20 21:27 BP 132/88 04/28/20 21:27 Pulse Ox 98 04/28/20 21:27 Data NPU : 04/15/20 22:16 04/15/20 22:16 A&P Additional A&P Information (1) Altered mood associated with qian: (2) Methamphetamine dependence: (3) Chronic schizophrenia: This is a 45 year old, white male, with bipolar disorder, versus schizoaffective disorder, who presents with likely med-nonadherence and return of his psychosis. Continue current medication except: Encourage individual, group, and milieu therapy. Continue q 15-minute checks for safety. Will work with guardian for discharge possibilities. Involuntary Hold Information 96 Hour Hold: 96 Hour Involuntary Admission: Yes 96 Hour Hold Ending Date: 04/21/20 96 Hour Hold Ending Time: 21:49 Attestations NPU Medical Necessity Statement*: Inpatient hospitalization is medically necessary and the clinically appropriate intervention at this time. We will monitor his medications and make changes as indicated. Likely length of stay five to seven days. Coding Level of Care Code Acute Polishing Machine Operator Helper for Brian Beltran
[2020-04-28 14:00] VITALS: BP 125/80; PULSE 124; RESP 20; TEMP 36.2; O2SAT 97
[2020-04-28 21:27] VITALS: BP 132/88; PULSE 96; RESP 22; TEMP 36.9; O2SAT 98
[2020-04-28] MEDS: quetiapine 100 mg Tablet PO (21:35)
[2020-04-29] MEDS: nicotine 2 mg Gum BUCCAL ×5 (04:42→21:40)
[2020-04-29] MEDS: acetaminophen 325 mg Tablet 650 MG PO (05:15)
[2020-04-29 06:00] VITALS: BP 125/88; PULSE 122; RESP 17; TEMP 36.7; O2SAT 99
[2020-04-29] MEDS: paliperidone ER 6 mg Tablet PO ×2 (08:40→21:07)
[2020-04-29] MEDS: divalproex ER 500 mg Tablet (24H) PO ×2 (08:40→21:43)
--- NOTE | 2020-04-29 10:00 | P.PN_ITS ---
Subjective NPU Subjective: Interval history: Paul presents today initially refusing his Invega but reporting that he does not like how it makes him feel sleepy and kind of worn out. We very reasonably had a discussion about what our options were and identified the fact that we could at least switch it to bedtime dosing and see how that works first before we start talking about it being a bad medication overall, and he was very amenable to that as a plan after this conventional mortgage underwriter pushed the fact that we at least give it a try. He was very cordial today, apologizing for some of the things he said over the last several days. No irritability or feeling like he was going to become aggressive, was very calm and reasonable. This conventional mortgage underwriter and he took several laps around the unit talking about circumstances and him explaining his position, and it was a very productive day for him. Mental Status Exam MSE Comments: This is a well-nourished well-developed white male with adequate dress grooming and eye contact. No abnormal movements and appearing more redirectable. More cooperative with exam in no acute distress. Speech was normal rate and volume. mood described as pretty good, affect calm. thought p rocess organized for the most part. thought content: Patient denies suicidal or homicidal ideation. There were no delusions reported, he continued having paranoid and hyper gnosticist delusions. He did not appear to be attending to internal stimuli. Attention and concentration is improving. memory is unreliable but none were formally tested. He is alert and oriented times person and place. Insight and judgment are impaired, but improving, impulse control is impaired, but improving. Vitals/I&O/Wt Last Vital Signs Temp 98.0 F 04/29/20 06:00 Pulse 122 H 04/29/20 06:00 Resp 17 04/29/20 06:00 BP 125/88 04/29/20 06:00 Pulse Ox 99 04/29/20 06:00 Data NPU : 04/15/20 22:16 04/15/20 22:16 A&P Additional A&P Information (1) Altered mood associated with qian: (2) Methamphetamine dependence: (3) Chronic schizophrenia: This is a 45 year old, white male, with bipolar disorder, versus schizoaffective disorder, who presents with likely med-nonadherence and return of his psychosis. Continue current medication except: change the Invega to qhs dosing Encourage individual, group, and milieu therapy. Continue q 15-minute checks for safety. Will work with guardian for discharge possibilities. Involuntary Hold Information 96 Hour Hold: 96 Hour Involuntary Admission: Yes 96 Hour Hold Ending Date: 04/21/20 96 Hour Hold Ending Time: 21:49 Attestations NPU Medical Necessity Statement*: Inpatient hospitalization is medically necessary and the clinically appropriate intervention at this time. We will monitor his medications and make changes as indicated. Likely length of stay five to seven days. Coding Level of Care Code Acute Assembly Lead Person for Brian Beltran
[2020-04-29 14:00] VITALS: BP 124/77; PULSE 84; RESP 18; TEMP 36.4; O2SAT 100
[2020-04-29 20:28] VITALS: BP 126/79; PULSE 100; RESP 24; TEMP 36.4; O2SAT 98
[2020-04-29] MEDS: quetiapine 100 mg Tablet PO (21:07)
--- NOTE | 2020-04-30 04:18 | PC.NURSE ---
pt given scheduled depakote, invega and seroquel at HS. no behavior issues noted.
[2020-04-30] MEDS: nicotine 2 mg Gum BUCCAL ×7 (05:51→21:54)
[2020-04-30 06:00] VITALS: BP 115/78; PULSE 131; RESP 18; TEMP 36.6; O2SAT 98
[2020-04-30] MEDS: neomycin-poly-bacitracin oint 28 gm 1 APPLIC TOPICAL (06:46)
[2020-04-30] MEDS: divalproex ER 500 mg Tablet (24H) PO ×2 (08:25→20:36)
--- NOTE | 2020-04-30 13:45 | PM.NPN ---
Subjective NPU Subjective: Interval history: Paul continues a very positive several days with no issues today. He took his medication last night without issue, not complaining about it today, never even mentioned it. He was very engaging to staff and this global technical writer alike, playful at times, with no concerning behaviors. He asked about different options for placement that he could find and about the timeline to when we would let him go, and expressed with him that at this point the chain regulating step is finding a place that would receive him, as his behavior has really turned the corner. He endorsed that he is eating fine, but he did report on feeling hungry a lot because of the portions and we agreed that he could have double portions. Mental Status Exam MSE Comments: This is a well-nourished well-developed white male with adequate dress grooming and eye contact. No abnormal movements and appearing more redirectable. Cooperative with exam in no acute distress. Speech was normal rate and volume. mood described as good, affect calm. thought process organized for the most part. thought content: Patient denies suicidal or homicidal ideation. There were no delusions reported, he continued having paranoid and hyper uatsdin delusions. He did not appear to be attending to internal stimuli. Attention and concentration are improving. memory is more reliable but none were formally tested. He is alert and oriented times three. Insight and judgment are improving, impulse control is improving. Vitals/I&O/Wt Last Vital Signs Temp 98.6 F 04/30/20 14:00 Pulse 95 04/30/20 14:00 Resp 18 04/30/20 14:00 BP 134/83 04/30/20 14:00 Pulse Ox 99 04/30/20 14:00 Data NPU : 04/15/20 22:16 04/15/20 22:16 A&P Additional A&P Information (1) Altered mood associated with qian: (2) Methamphetamine dependence: (3) Chronic schizophrenia: This is a 45 year old, white male, with bipolar disorder, versus schizoaffective disorder, who presents with likely med-nonadherence and return of his psychosis. Continue current medication except: Try to convince to take the Invega sustenna. Encourage individual, group, and milieu therapy. Continue q 15-minute checks for safety. Will work with guardian for discharge possibilities. Involuntary Hold Information 96 Hour Hold: 96 Hour Involuntary Admission: Yes 96 Hour Hold Ending Date: 04/21/20 96 Hour Hold Ending Time: 21:49 Attestations NPU Medical Necessity Statement*: Inpatient hospitalization is medically necessary and the clinically appropriate intervention at this time. We will monitor his medications and make changes as indicated. Likely length of stay 4-6 days. Coding Level of Care Code Acute Varnish Thinner for Brian Beltran
[2020-04-30 14:00] VITALS: BP 134/83; PULSE 95; RESP 18; TEMP 37; O2SAT 99
[2020-04-30] MEDS: acetaminophen 325 mg Tablet 650 MG PO (16:24)
[2020-04-30 20:25] VITALS: BP 153/76; PULSE 107; RESP 18; TEMP 36.8; O2SAT 98
[2020-04-30] MEDS: paliperidone ER 6 mg Tablet PO (20:35)
[2020-04-30] MEDS: OLANZapine 5 mg ODT PO (20:35)
[2020-04-30] MEDS: trazodone 50 mg Tablet PO (20:36)
[2020-04-30] MEDS: quetiapine 100 mg Tablet PO (20:36)
--- NOTE | 2020-04-30 21:38 | PC.NURSE ---
pt given scheduled HS meds and PRN trazodone, vistaril and nicorette gum per request.
[2020-04-30 22:00] VITALS: BP 193/76; PULSE 107; RESP 18; TEMP 36.8; O2SAT 98
[2020-05-01] MEDS: nicotine 2 mg Gum BUCCAL ×6 (03:47→19:09)
[2020-05-01] MEDS: OLANZapine 5 mg ODT PO (04:51)
[2020-05-01 06:00] VITALS: BP 110/79; PULSE 136; RESP 15; TEMP 36.5; O2SAT 99
--- NOTE | 2020-05-01 09:13 | PM.NPN ---
Subjective NPU Subjective: Interval history: Paul presents today continuing to make steps forward each day in his calmness, and in his ability to have rational and reasoned decisions. We had a very enjoyable conversation today about some of the places that one could visit for recreation in the [place] area, within thirty to sixty minutes from here. Additionally, he talked about some of his issues and staying well, and reported that he had become homeless due to conflicts with his mom and his child?s mother. He reports that he has a six year old that he is struggling to be able to see. He was struggling and ended up not having a place to stay, due to conflicts with those two entities. He reports that, on the streets, it was very hard for him to manage his medication and deal with not having a place to go. He feels the homelessness really challenged his mental health. It was a very poignant conversation about his struggle to stay well without a place to go; it was a very insightful conversation. Against the backdrop of that, we discussed the risks, benefits, and alternatives of him considering the Invega injection, and he understood and had some reservations about moving forward with that. But we agreed to proceed as is documented in this note, mainly that, at this point, it is something that he is considering. The good news is that he was enquiring about how him taking the injection would increase his profile with places that we are trying to get him placed, and I explained that it is one major guarantee, that no matter happened with the other medications, that he would have that medication on board, to which he responded, and certainly not in a conflictual way, that when he is doing well he always takes his medication and does not fight taking his medication. To his credit, that is a lot of what we see, he can have some resistance when he is not well, but once he starts moving towards wellness, getting him to take his medication is not a challenge. Mental Status Exam MSE Comments: This is a well-nourished well-developed white male with adequate dress grooming and eye contact. No abnormal movements. Cooperative with exam in no acute distress. Speech was normal rate and volume. mood described as good, affect congruent. thought process organized. thought content: Patient denies suicidal or homicidal ideation. There were no delusions reported, he continued having paranoid and hyper pentecostalism delusions. He did not appear to be attending to internal stimuli. Attention and concentration are improving. memory is more reliable but none were formally tested. He is alert and oriented times three. Insight and judgment are improving, impulse control is improving. Vitals/I&O/Wt Last Vital Signs Temp 97.7 F 05/01/20 06:00 Pulse 136 H 05/01/20 06:00 Resp 15 05/01/20 06:00 BP 110/79 05/01/20 06:00 Pulse Ox 99 05/01/20 06:00 Weight last 48 hrs Weight 81.703 kg Data NPU : 04/15/20 22:16 04/15/20 22:16 A&P Additional A&P Information (1) Altered mood associated with qian: (2) Methamphetamine dependence: (3) Chronic schizophrenia: This is a 45 year old, white male, with bipolar disorder, versus schizoaffective disorder, who presents with significant improvement on his medication and vast improvement overall awaiting placement. Continue current medication except: Try to convince to take the Invega sustenna. Encourage individual, group, and milieu therapy. Continue q 15-minute checks for safety. Will work with guardian for discharge possibilities. Involuntary Hold Information 96 Hour Hold: 96 Hour Involuntary Admission: Yes 96 Hour Hold Ending Date: 04/21/20 96 Hour Hold Ending Time: 21:49 Attestations NPU Medical Necessity Statement*: Inpatient hospitalization is medically necessary and the clinically appropriate intervention at this time. We will monitor his medications and make changes as indicated. Likely length of stay 4-6 days. Coding Level of Care Code Acute B And B Gang Worker for Brian Beltran
[2020-05-01] MEDS: divalproex ER 500 mg Tablet (24H) PO ×3 (09:24→21:23)
[2020-05-01] MEDS: neomycin-poly-bacitracin oint 28 gm 1 APPLIC TOPICAL ×2 (10:48→18:20)
[2020-05-01 14:00] VITALS: BP 121/86; PULSE 111; RESP 18; TEMP 37.1
[2020-05-01] MEDS: paliperidone ER 6 mg Tablet PO (21:22)
[2020-05-01] MEDS: quetiapine 100 mg Tablet PO (21:22)
[2020-05-01 22:00] VITALS: BP 133/82; PULSE 111; RESP 18; TEMP 36.9; O2SAT 97
--- NOTE | 2020-05-02 01:01 | PC.NURSE ---
pt was given scheduled HS meds teresa davis seroquel.
[2020-05-02 06:00] VITALS: BP 93/58; PULSE 72; RESP 16; TEMP 36.6; O2SAT 95
[2020-05-02] MEDS: nicotine 2 mg Gum BUCCAL ×7 (06:43→19:46)
[2020-05-02] MEDS: divalproex ER 500 mg Tablet (24H) PO ×2 (09:05→20:56)
--- NOTE | 2020-05-02 10:13 | P.PN_ITS ---
Subjective NPU Subjective: Interval history: Paul presents today continuing to be in really good spirits, without any concerns for aggression or irritability or inappropriate, poor behavior. He continues to have very nice dialogue with this health technical writer. He is struggling a bit with they Invega and feeling a little groggy when he wakes up. But we continued to talk about the fact that having something there that either is, or can be moved to an injection, just makes a lot of sense for his overall well-being. He reports his will fight through it. He denies any problems. He reports that he is sleeping maybe a little more that he would like, and that he is eating fine. He denies any specific issues and looks forward to being able to be discharged, soon, to some facility. Mental Status Exam MSE Comments: This is a well-nourished well-developed white male with adequate dress grooming and eye contact. No abnormal movements. Cooperative with exam in no acute distress. Speech was normal rate and volume. mood described as good but a little groggy from medication, affect congruent. thought process organized. thought content: Patient denies suicidal or homicidal ideation. There were no delusions reported, no delusions noted. He denied auditory or visual hallucinations. Attention and concentration are intact. memory is more reliable but none were formally tested. He is alert and oriented times three. Insight and judgment are improving, impulse control is improving. Vitals/I&O/Wt Last Vital Signs Temp 97.9 F 05/02/20 06:00 Pulse 72 05/02/20 06:00 Resp 16 05/02/20 06:00 BP 93/58 05/02/20 06:00 Pulse Ox 95 05/02/20 06:00 Weight last 48 hrs Weight 81.703 kg Data NPU : 04/15/20 22:16 04/15/20 22:16 A&P Additional A&P Information (1) Altered mood associated with qian: (2) Methamphetamine dependence: (3) Chronic schizophrenia: This is a 45 year old, white male, with bipolar disorder, versus schizoaffective disorder, who presents with significant improvement on his medication and vast improvement overall awaiting placement. Continue current medication except: Try to convince to take the Invega sustenna. Encourage individual, group, and milieu therapy. Continue q 15-minute checks for safety. Will work with guardian for discharge possibilities. Involuntary Hold Information 96 Hour Hold: 96 Hour Involuntary Admission: Yes 96 Hour Hold Ending Date: 04/21/20 96 Hour Hold Ending Time: 21:49 Attestations NPU Medical Necessity Statement*: Inpatient hospitalization is medically necessary and the clinically appropriate intervention at this time. We will monitor his medications and make changes as indicated. Likely length of stay 4-6 days. Coding Level of Care Code Acute Proof Machine Operator for Brian Beltran
[2020-05-02 14:00] VITALS: BP 147/82; PULSE 98; RESP 18; TEMP 36.9
[2020-05-02] MEDS: acetaminophen 325 mg Tablet 650 MG PO (14:43)
[2020-05-02] MEDS: neomycin-poly-bacitracin oint 28 gm 1 APPLIC TOPICAL (17:28)
[2020-05-02 20:38] VITALS: BP 128/79; PULSE 107; RESP 21; TEMP 36.9; O2SAT 98
[2020-05-02] MEDS: paliperidone ER 6 mg Tablet PO (20:56)
[2020-05-02] MEDS: quetiapine 100 mg Tablet PO (20:57)
[2020-05-03] MEDS: nicotine 2 mg Gum BUCCAL ×4 (05:08→21:24)
[2020-05-03 06:00] VITALS: BP 118/81; PULSE 100; RESP 18; TEMP 36.4; O2SAT 99
[2020-05-03] MEDS: neomycin-poly-bacitracin oint 28 gm 1 APPLIC TOPICAL (06:25)
--- NOTE | 2020-05-03 10:39 | P.PN_ITS ---
Subjective NPU Subjective: Interval history: Paul presents today continuing to have great progress and to be doing really well. There was a facility that was found for him, but they had one stipulation which was that he have the injectable version of his Invega, and he was open to taking the injection if that allowed him to have a facility to go to, so he accepted the Invega at 234 mg IM injection of the Invega Sustenna. He will need the other injection next Sunday. He was very thankful for the work that was done for him at the hospital and he is excited about his discharge tomorrow. He reports he is eating and sleeping fine. He had some questions about how the injection works, but otherwise moved forward without a hitch. Mental Status Exam MSE Comments: This is a well-nourished well-developed white male with adequate dress grooming and eye contact. No abnormal movements. Cooperative with exam in no acute distress. Speech was normal rate and volume. mood described as good but a little groggy from medication, affect congruent. thought process organized. thought content: Patient denies suicidal or homicidal ideation. There were no delusions reported, no delusions noted. He denied auditory or visual hallucinations. Attention and concentration are intact. memory is more reliable but none were formally tested. He is alert and oriented times three. Insight and judgment are improving, impulse control is improving. Vitals/I&O/Wt Last Vital Signs Temp 98.5 F 05/03/20 20:19 Pulse 101 H 05/03/20 20:19 Resp 17 05/03/20 20:19 BP 125/74 05/03/20 20:19 Pulse Ox 97 05/03/20 20:19 Weight last 48 hrs Weight 81.703 kg Data NPU : 04/15/20 22:16 04/15/20 22:16 A&P Additional A&P Information (1) Altered mood associated with qian: (2) Methamphetamine dependence: (3) Chronic schizophrenia: This is a 45 year old, white male, with bipolar disorder, versus schizoaffective disorder, who presents with significant improvement on his medication and vast improvement overall awaiting placement. Continue current medication except: gave Invega sustenna 234 mg IM. Encourage individual, group, and milieu therapy. Continue q 15-minute checks for safety. Plan for discharge tomorrow. Involuntary Hold Information 96 Hour Hold: 96 Hour Involuntary Admission: Yes 96 Hour Hold Ending Date: 04/21/20 96 Hour Hold Ending Time: 21:49 Attestations NPU Medical Necessity Statement*: Inpatient hospitalization is medically necessary and the clinically appropriate intervention at this time. We will monitor his medications and make changes as indicated. Plan for d/c tomorrow. Coding Level of Care Code Acute Welding Machine Operator [place] for Brian Beltran
[2020-05-03 14:00] VITALS: BP 114/74; PULSE 107; RESP 20; TEMP 36.9; O2SAT 98
[2020-05-03] MEDS: paliperidone palmitate 234 mg Syringe IM (14:19)
--- NOTE | 2020-05-03 14:33 | PC.SOCIAL ---
Important Medicare Message Reviewed with guardiinocente Larsen. Updated copy and noted on form. Copy in chart and to patient.
[2020-05-03 20:19] VITALS: BP 125/74; PULSE 101; RESP 17; TEMP 36.9; O2SAT 97
[2020-05-03] MEDS: quetiapine 100 mg Tablet PO (21:22)
[2020-05-03] MEDS: paliperidone ER 6 mg Tablet PO (21:22)
[2020-05-03] MEDS: divalproex ER 500 mg Tablet (24H) PO ×2 (21:23→23:03)
--- NOTE | 2020-05-04 03:46 | PC.NURSE ---
At HS, pt was given scheduled depakote, invega, seroquel and PRN nicorette gum.
[2020-05-04] MEDS: nicotine 2 mg Gum BUCCAL ×2 (05:11→08:18)
[2020-05-04 06:00] VITALS: BP 119/72; PULSE 115; RESP 14; TEMP 36.8; O2SAT 99
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
[2020-05-04] MEDS: acetaminophen 325 mg Tablet 650 MG PO (08:18)
[2020-05-04] MEDS: divalproex ER 500 mg Tablet (24H) PO (08:18)
[2020-05-04 10:24] VITALS: BP 119/72; PULSE 115; RESP 14; TEMP 36.8; O2SAT 99
== END 2020-05-04 12:13 | disposition home or self-care (01) | DRG 885 ==
LOC: ER 22:17 → NP 22:53
PROVIDERS: Physician Assistant; Admitting Provider Psychiatry & Neurology Psychiatry; Visit Provider Psychiatry & Neurology Psychiatry
DX: F20.9 Schizophrenia, unspecified (principal); F15.20 Other stimulant dependence, uncomplicated; F30.9 Manic episode, unspecified; Z59.0 Homelessness; R45.850 Homicidal ideations; F17.210 Nicotine dependence, cigarettes, uncomplicated
CPT/HCPCS: 12345; 36415; 80053; 80164; 80306; 80307; 81003; 85025; 96372; 99281; J1200; J1630; J2060

== ENCOUNTER 2021-06-18 15:41 | Inpatient (IN) | payer MEDICARE, MEDICAID, SELFPAY ==
--- NOTE | 2021-06-18 15:53 | ED_ITS ---
HPI - Psych General: Chief Complaint: Psychiatric Symptoms Stated Complaint: PSYCH EVAL Time Seen by Provider: 06/18/21 15:49 History of Present Illness: HPI Narrative: 46-year-old male with a history of bipolar disorder is normally on a number of medications antipsychotics evidently stopped taking all of his medications he is having delusions of grandeur. In the past he has been suicidal but there is no reports of suicidal ideation and point. Family called EMS and he was brought here. MD complaint: suicidal ideation and altered mental status Onset (ago): day(s) Duration: constant History of same: Yes Relieving factors: none Exacerbating factors: none Context: not taking psychiatric medications Associated psychiatric symptoms: racing thoughts, auditory hallucinations, visual hallucinations and delusions Associated symptoms: Reports auditory hallucinations, visual hallucinations, delusions and racing thoughts Treatments prior to arrival: none Review of Systems Const: Denies: fever(s), chills, body aches, change in appetite, fatigue or malaise ENMT: Denies: throat pain, ear or mastoid pain, nasal discharge or nasal congestion Card: Denies: chest pain, edema, dyspnea on exertion or orthopnea Resp: Denies: dyspnea, productive cough or non-productive cough GI: Denies: abdominal pain, nausea, vomiting, hematemesis, coffee ground emesis, diarrhea, constipation, bloating, hematochezia or melena : Denies: flank pain, dysuria, urinary frequency or urinary urgency Skin/Breast: Denies: rash or pruritus Psych: Reports: visual hallucinations and auditory hallucinations PFS ED PFSH: Social History Smoking and tobacco status: current every day smoker Physical Exam Const: COMMON NORMALS: no acute distress GENERAL APPEARANCE: cooperative ORIENTATION/CONSCIOUSNESS: Yes oriented to person, Yes oriented to place and Yes oriented to time HENMT: COMMON NORMALS: normocephalic, atraumatic and hearing grossly normal bilaterally HEAD & SCALP: normocephalic and atraumatic Neck/C-Spine: COMMON NORMALS: no JVD Resp: COMMON NORMALS: normal respiratory effort, No retractions, No use of accessory muscles and clear to auscultation bilaterally AUSCULTATION: clear to auscultation bilaterally Cardio: COMMON NORMALS: no JVD, regular rate, regular rhythm and No murmurs present (Cardio) RATE: regular rate RHYTHM: regular rhythm GI: COMMON NORMALS: Soft to palpation and No hepatosplenomegaly present AUSCULTATION: Yes normoactive bowel sounds PALPATION: Yes Soft to palpation, No Tenderness to palpation present (GI), No Guarding due to palpation present (GI) and Yes No hepatosplenomegaly present Extremity: COMMON NORMALS: normal to inspection, capillary refill normal, no clubbing, cyanosis or edema, no calf tenderness and no pedal edema Neuro: SENSORIUM/ORIENTATION: Yes oriented to person, Yes oriented to place and Yes oriented to time Psych: THOUGHT CONTENT: Yes delusions Skin: COMMON NORMALS: no rashes or lesions noted GENERAL SKIN EXAM: no ra shes or lesions noted Course Vital Signs: Vital signs: Vital Signs Pulse Rate 113 H 06/18/21 16:05 Blood Pressure 158/98 06/18/21 16:05 Pulse Oximetry 99 06/18/21 16:05 MDM - Psych MDM Narrative: Medical decision making narrative: Acute psychosis with delusions of grandeur discussed Dr. Pederson orders written. Discharge Plan Discharge Patient Disposition: Admitted As Inpatient Clinical Impression: Chronic schizophrenia Condition: Stable Coding Level of Care Code ED Management Internship for Brian Fwd Exam Comprehensive
[2021-06-18 16:05] VITALS: BP 158/98; PULSE 113; O2SAT 99; BMI 28.2
--- NOTE | 2021-06-18 16:20 | PC.NURSE ---
triage edit pt arrives via ems with psych related issues, pt states he has been off his medications for at least 3 weeks and would like to be evaluated. pt appears paranoid and agitated upon arrival.
[2021-06-18] MEDS: LORazepam 2 mg/mL INJ 1 mL IM (16:24)
[2021-06-18 17:16] LABS: Basophils % 0.4 %; Eosinophils % 0.7 %; Hematocrit 36.1 % (42.0-52.0); Hemoglobin 12.3 g/dL (11.7-16.6); Lymphocytes # 1.3 10^3/uL (0.8-4.8); Lymphocytes % 28.4 %; Mean Corpuscular HGB Conc 34.1 g/dL (30.0-36.0); Mean Corpuscular Hemoglobin 31.8 pg (28.0-34.0); Mean Corpuscular Volume 93.3 fl (80-94); Mean Platelet Volume 9.9 fL (7.4-10.4); Monocytes # 0.4 10^3/uL (0.2-0.9); Neutrophils # 2.82 10^3/uL (1.8-7.7); Neutrophils % 61.5 %; Nucleated Red Blood Cells % 0 %; Platelet Count 265 10^3/cmm (130-400); Red Blood Count 3.87 10^6/uL (4.1-5.3); Red Cell Distribution Width 11.9 % (12.1-15.1); White Blood Count 4.6 10^3/uL (4.0-10.0)
[2021-06-18 17:40] LABS: Alanine Aminotransferase 10 U/L (0-41); Albumin Level 3.4 g/dL (3.5-5.2); Alkaline Phosphatase 47 IU/L (40-130); Anion Gap 13.9 (5-19); Aspartate Amino Transferase 16 U/L (0-40); Blood Urea Nitrogen 9 mg/dL (6-20); Calcium 8.3 mg/dL (8.5-10.5); Carbon Dioxide 26 mmol/L (22-29); Chloride 103 mmol/L (98-107); Globulin 2.9 g/dL (1.3-4.6); Glomerular Filtration Rate 178.2 mL/min (90-130); Glucose 104 mg/dL (65-115); Osmolality Calculated 289 mOsm/kg (285-295); Sodium 140 mmol/L (136-145); Total Bilirubin 0.5 mg/dL (0.15-1.2); Total Protein 6.3 g/dL (6.6-8.7)
[2021-06-18 17:50] LABS: Acetaminophen < 5.0 ug/mL (10-30); Potassium 2.9 mmol/L (3.5-5.1); Salicylate < 0.3 mg/dL (3-10)
[2021-06-18 20:19] VITALS: BP 155/85; PULSE 110; RESP 18; TEMP 37; O2SAT 96
[2021-06-18] MEDS: potassium chloride oral liq 20 mEq/15 mL UDC 60 MEQ PO (20:25)
[2021-06-19] MEDS: potassium chloride ER 20 mEq Tablet PO (01:10)
[2021-06-19 06:00] VITALS: BP 133/86; PULSE 103; RESP 19; TEMP 37; O2SAT 96; BMI 28.2
[2021-06-19 08:34] LABS: Basophils % 0.7 %; Eosinophils % 0.4 %; Hematocrit 42.3 % (42.0-52.0); Hemoglobin 14.2 g/dL (11.7-16.6); Lymphocytes # 1.6 10^3/uL (0.8-4.8); Lymphocytes % 29.1 %; Mean Corpuscular HGB Conc 33.6 g/dL (30.0-36.0); Mean Corpuscular Hemoglobin 32.1 pg (28.0-34.0); Mean Corpuscular Volume 95.7 fl (80-94); Monocytes # 0.5 10^3/uL (0.2-0.9); Monocytes % 8.6 %; Neutrophils # 3.28 10^3/uL (1.8-7.7); Nucleated Red Blood Cells % 0 %; Platelet Count 314 10^3/cmm (130-400); Red Blood Count 4.42 10^6/uL (4.1-5.3); Red Cell Distribution Width 11.9 % (12.1-15.1); White Blood Count 5.4 10^3/uL (4.0-10.0)
[2021-06-19 08:52] LABS: Alanine Aminotransferase 11 U/L (0-41); Albumin Level 3.9 g/dL (3.5-5.2); Alkaline Phosphatase 55 IU/L (40-130); Anion Gap 15.1 (5-19); Aspartate Amino Transferase 20 U/L (0-40); Blood Urea Nitrogen 5 mg/dL (6-20); Calcium 9.4 mg/dL (8.5-10.5); Carbon Dioxide 27 mmol/L (22-29); Chloride 100 mmol/L (98-107); Glomerular Filtration Rate 144.4 mL/min (90-130); Glucose 109 mg/dL (65-115); Osmolality Calculated 284 mOsm/kg (285-295); Potassium 4.1 mmol/L (3.5-5.1); Sodium 138 mmol/L (136-145); Total Bilirubin 0.4 mg/dL (0.15-1.2); Total Protein 6.9 g/dL (6.6-8.7)
--- NOTE | 2021-06-19 09:26 | P.HP_ITS ---
Providers/Chief Complaint Admitting Physician: Jermaine Pederson MD Chief Complaint: PSYCH EVAL HPI NPU History of Present Illness Paul Rhodes is a 46 year old male who presented to the emergency department with the following report: Chief Complaint: Psychiatric Symptoms Stated Complaint: PSYCH EVAL Time Seen by Provider: 06/18/21 15:49 History of Present Illness: HPI Narrative: 46-year-old male with a history of bipolar disorder is normally on a number of medications antipsychotics evidently stopped taking all of his medications he is having delusions of grandeur. In the past he has been suicidal but there is no reports of suicidal ideation and point. Family called EMS and he was brought here. complaint: suicidal ideation and altered mental status Onset (ago): day(s) Duration: constant History of same: Yes Relieving factors: none Exacerbating factors: none Context: not taking psychiatric medications Associated psychiatric symptoms: racing thoughts, auditory hallucinations, visual hallucinations and delusions Associated symptoms: Reports auditory hallucinations, visual hallucinations, delusions and racing thoughts Treatments prior to arrival: none. He was admitted to the neuropsychiatric unit for definitive treatment of those issues. Today, he presents known to this policy writer sales from previous hospitalizations appearing as he generally does at the beginning of those hospitalizations. Paul presents floridly psychotic, pacing the hallways with ranting and talking to himself. There are times that he can be seen moving his right hand in a puppet motion, as if his hand is speaking to him, and that he turns and listens to what his hand says, and then responds back on many different topics. He endorses during this time working for the [employer], the [employer], the [employer], and then goes on rants about what each of these organizations do. He also continued with significant religiously driven banter about Alpesh and God, and him being an arc higinio, and him not being able to be kept in this building because will intervene. At one point, he did acknowledge that he had stopped taking his medication because he is homeless now, but he could not explain what happened that led him to being homeless. He identified that Seroquel and Depakote were medications that he takes, and he would take 300 mg of Seroquel and 500 mg of Depakote. He then went on a rant about those medications being mixed and faked by doctors, and that he would know when he tasted the medication if we had adulterated it in any way or used fake medication, and then he used his hand to puppet that God told him that if we put the fake stuff in his body, he would intervene and make it the real Depakote. He then said that we could start the medication. As per previous hospitalizations, he was very racially driven and spent some time discussing the fact that he was not racist, but then bringing attention to this policy writer sales being and that he likes black people, just other people do not like black people. He was unable to stay on task to answer previous questions, but an excerpt from his last hospitalization is included for context. It is noteworthy that he has never been able to recover psychiatrically without a 21-day hold, and long acting injectable, to get him to a place where he can leave the hospital functionally. Meds NPU Home Medications Medication Instructions Recorded Confirmed Last Taken Type divalproex 500 mg PO BEDTIME 06/18/21 06/19/21 06/18/21 History quetiapine 300 mg PO BEDTIME 06/18/21 06/18/21 06/17/21 History divalproex PO 06/19/21 Unknown History Allergies Allergy/AdvReac Type Severity Reaction Status Date / Time No Known Allergies Allergy Verified 02/05/20 14:14 PFSH NPU PFSH: Social History Smoking and tobacco status: current every day smoker Mental Status Exam MSE Comments: This is an overweight, but well-developed, white male, in hospital scrubs, with limited grooming, and adequate eye contact. No abnormal movements except for psychomotor agitation. Semi-cooperative with exam in moderate distress and at times extreme distress. Speech was increased rate and volume at times. Mood not described; affect euphoric/agitated. Thought process, disorganized. Thought content: patient did not answer questions about lethality, but at one point said that he was fine to leave, that he would not hurt anybody, but then at other times he came across as fairly aggressive, which is fairly standard in the beginning for him. He did not report hearing voices or seeing things but was clearly having active auditory and visual hallucinations. Attention and concentration were impaired, and memory was unreliable, but none were formally tested. He is alert and oriented to person and place. Insight and judgment are impaired, impulse control is impaired. Vitals/I&O/Wt Last Vital Signs Temp 98.6 F 06/18/21 20:19 Pulse 110 H 06/18/21 20:19 Resp 18 06/18/21 20:19 BP 155/85 06/18/21 20:19 Pulse Ox 96 06/18/21 20:19 Weight last 48 hrs Weight 97.069 kg Data NPU : 06/19/21 08:07 06/19/21 08:07 A&P Assessment and plan (1) Methamphetamine dependence: Status: Chronic (2) Chronic schizophrenia: Status: Chronic Additional A&P Information This is a 46-year-old, white male, well known to this system with a long history of psychosis, some past cannabis use, with no current drug screen obtained, with history of long hospitalizations secondary to being off of medication and/or sometimes concerns for active addiction, but many times just purely psychotic secondary to his organic disease, who presents open to taking some medication but likely needing a larger intervention to get him well again. RECOMMENDATION AND PLAN: 1. Continue current medication. 2. Encourage individual, group, and milieu therapy. 3. Continue q-15 minute checks for safety. 4. We will be prepared to put a 21-day hold in and try to restore him to the medication that gave him the ability to have a productive existence outside of the hospital. Involuntary Hold Information 96 Hour Hold: 96 Hour Involuntary Admission: Yes 96 Hour Hold Ending Date: 04/21/20 96 Hour Hold Ending Time: 21:49 Attestations NPU Medical Necessity Statement*: Inpatient hospitalization is medically necessary and the clinically appropriate intervention, at this time. We will monitor medications and make changes as indicated. Patient will be in the hospital for over two midnights. Likely length of stay is ten to fourteen days. Coding Level of Care Code Acute Registry Rn for Brian Beltran Diagnoses Methamphetamine dependence F15.20 Chronic schizophrenia F20.9
[2021-06-19 14:00] VITALS: BP 133/86; PULSE 103; RESP 19; TEMP 37; O2SAT 96
[2021-06-19] MEDS: divalproex ER 500 mg Tablet (24H) PO (17:36)
[2021-06-19 20:44] VITALS: BP 133/91; PULSE 104; RESP 18; TEMP 36.8; O2SAT 99
[2021-06-19] MEDS: quetiapine 300 mg Tablet PO (20:55)
[2021-06-20 06:00] VITALS: BP 126/91; PULSE 105; RESP 17; TEMP 37.1; O2SAT 98
[2021-06-20] MEDS: divalproex ER 500 mg Tablet (24H) PO (08:06)
[2021-06-20 08:27] LABS: Amphetamines Screen Urine Negative (Negative); Barbiturates Screen Urine Negative (Negative); Benzodiazepines Screen Urine Positive (Negative); Cocaine Screen Urine Negative (Negative); Opiate Screen Urine Negative (Negative); PCP Screen Urine Negative (Negative); THC Screen Urine Positive (Negative)
--- NOTE | 2021-06-20 12:39 | P.PN_ITS ---
Subjective NPU Medications: Medication Review Details: I met with the patient in his room. He answered my questions with one-word answers. He insisted that he was well and should be discharged. He is very suspicious, and guarded. He refused to answer most questions with the exception of direct questions about previously mentioned delusions. He then attempted to explain what he really meant, but his explanations were irrational. He states that he is worried that I am trying to trick him. He abruptly ended the conversation and asked me to leave, however he remained in the doorway. <DIANE Meza STDNT - Last Filed: 06/20/21 12:47> Mental Status Exam MSE Comments: The patient is a white male in hospital scrubs with limited grooming and inadequate eye contact. Psychomotor agitation noted. Speech was increased in rate and volume. Mood described as fine. Affect agitated. Thought process disorganized. Patient denied suicidal or homicidal ideation, paranoia, audio or visual hallucinations. However when presented with descriptions of paranoia he replied in the affirmative in all cases. As an example he believes he has been targeted by the government for surveillance. Attention and concentration appear impaired. Memory is intact to exam. Insight and judgment and impulse control all appear impaired. <DIANE Meza STDNT - Last Filed: 06/20/21 12:47> Vitals/I&O/Wt Last Vital Signs Temp 98.7 F 06/20/21 06:00 Pulse 105 H 06/20/21 06:00 Resp 17 06/20/21 06:00 BP 126/91 06/20/21 06:00 Pulse Ox 98 06/20/21 06:00 <DIANE Meza STDNT - Last Filed: 06/20/21 12:47> Weight last 48 hrs Weight 97.069 kg Weight 97.069 kg <Javi Andrea MED STDNT - Last Filed: 06/20/21 12:47> Data NPU : 06/19/21 08:07 06/19/21 08:07 <Javi Andrea MED STDNT - Last Filed: 06/20/21 12:47> A&P Assessment and plan (1) Methamphetamine dependence: Status: Chronic <DIANE Meza STDNT - Last Filed: 06/20/21 12:47> (2) Chronic schizophrenia: Status: Chronic <Javi Andrea DIANE STDNT - Last Filed: 06/20/21 12:47> Additional A&P Information his is a 46-year-old, white male, well known to this system with a long history of psychosis, some past cannabis use, with no current drug screen obtained, with history of long hospitalizations secondary to being off of medication and/or sometimes concerns for active addiction, but many times just purely psychotic secondary to his organic disease, who presents open to taking some medication but likely needing a larger intervention to get him well again. RECOMMENDATION AND PLAN: 1. Continue current medication. 2. Encourage individual, group, and milieu therapy. 3. Continue q-15 minute checks for safety. 4. We will be prepared to put a 21-day hold in and try to restore him to the medication that gave him the ability to have a productive existence outside of the hospital. <Javi AndreaDIANE STDNT - Last Filed: 06/20/21 12:47> Involuntary Hold Information 96 Hour Hold: 96 Hour Involuntary Admission: Yes <Javi AndreaDIANE STDNT - Last Filed: 06/20/21 12:47> 96 Hour Hold Ending Date: 04/21/20 <Javi AndreaDIANE STDNT - Last Filed: 06/20/21 12:47> 96 Hour Hold Ending Time: 21:49 <Javi Andrea DIANE STDNT - Last Filed: 06/20/21 12:47> Attestations [facility] Medical Necessity Statement*: . <Javi VenusDIANE segura STDNT - Last Filed: 06/20/21 12:47> Inpatient hospitalization is medically necessary and the clinically appropriate intervention, at this time. We will monitor medications and make changes as indicated. Likely length of stay is ten to fourteen days. <Jermaine Pederson MD - Last Filed: 06/21/21 05:58> Other Attestations: Other Attestations: I interviewed the patient independently as well as reviewed the case with the medical student and agree with the documentation as it is stated above. Patient continues to take the medication with which she has comfort but is not open to the medication that has shown success and really breaking his psychosis. He continues to be floridly psychotic though mildly better with the adherence to his medication. He is avoiding violent outbursts which he is known to have but likely when the 21-day hold circumstance is brought to his attention the situation might change. <Jermaine Pederson MD - Last Filed: 06/21/21 05:58> Coding Level of Care Code Acute Education Assistant for g Fwd Diagnoses Methamphetamine dependence F15.20 Chronic schizophrenia F20.9
[2021-06-20 14:00] VITALS: BP 141/97; PULSE 105; RESP 18; TEMP 36.3; O2SAT 98
[2021-06-20 20:13] VITALS: BP 125/84; PULSE 90; RESP 17; TEMP 36.9; O2SAT 99
[2021-06-20] MEDS: quetiapine 300 mg Tablet PO (22:08)
[2021-06-21 06:00] VITALS: BP 113/68; PULSE 64; RESP 17; TEMP 37; O2SAT 97
[2021-06-21] MEDS: divalproex ER 500 mg Tablet (24H) PO (09:21)
--- NOTE | 2021-06-21 10:18 | P.PN_ITS ---
Subjective NPU Medications: Medication Review Details: I met with the patient in his room. He was highly suspicious of me and repeatedly asked me if I was in a satanic cult. He believes that wearing a watch and a mask are signs of a satanic cult member. He refuses to answer most questions simply replied that he is fine. After several questions have been asked he claimed but I and Dr. Pederson will compiling a fraudulent case against him. The patient abruptly ended the exam, but about 5 minutes later he walked up to me to apologize. At this point he acknowledged that he does have some problems, but believes that he is able to handle them for the most part. <Javi Andrea MED STDNT - Last Filed: 06/21/21 10:25> Mental Status Exam MSE Comments: Patient is a white male in hospital scrubs with limited grooming and an adequate eye contact. Psychomotor agitation is noted. Speech was increased in rate and especially volume. The patient refused to answer question about mood. Affect was agitated. Thought process appears disorganized. The patient refused to answer questions about suicidal or homicidal ideation, paranoia, audio or visual hallucinations. Attention and concentration are impaired. Memory is intact to exam. Insight, judgment, and impulse control are all impaired. <Javi Andrea MED STDNT - Last Filed: 06/21/21 10:25> Vitals/I&O/Wt Last Vital Signs Temp 98.6 F 06/21/21 06:00 Pulse 64 06/21/21 06:00 Resp 17 06/21/21 06:00 BP 113/68 06/21/21 06:00 Pulse Ox 97 06/21/21 06:00 <Javi Andrea MED STDNT - Last Filed: 06/21/21 10:25> Data NPU : 06/19/21 08:07 06/19/21 08:07 <Javi Andrea MED STDNT - Last Filed: 06/21/21 10:25> A&P Assessment and plan (1) Methamphetamine dependence: Status: Chronic <Javi Andrea MED STDNT - Last Filed: 06/21/21 10:25> (2) Chronic schizophrenia: Status: Chronic <Javi Andrea MED STDNT - Last Filed: 06/21/21 10:25> Additional A&P Information Patient is a 46-year-old, white male, well known to this system with a long history of psychosis, some past cannabis use, with no current drug screen obtained, with history of long hospitalizations secondary to being off of medication and/or sometimes concerns for active addiction, but many times just purely psychotic secondary to his organic disease, who presents open to taking some medication but likely needing a larger intervention to get him well again. RECOMMENDATION AND PLAN: 1. Continue current medication. 2. Encourage individual, group, and milieu therapy. 3. Continue q-15 minute checks for safety. 4. We will be prepared to put a 21-day hold in and try to restore him to the medication that gave him the ability to have a productive existence outside of the hospital. <DIANE Meza STDNT - Last Filed: 06/21/21 10:25> Involuntary Hold Information 96 Hour Hold: 96 Hour Involuntary Admission: Yes <DIANE Meza STDNT - Last Filed: 06/21/21 10:25> 96 Hour Hold Ending Date: 04/21/20 <Javi Andrea MED STDNT - Last Filed: 06/21/21 10:25> 96 Hour Hold Ending Time: 21:49 <Javi Andrea MED STDNT - Last Filed: 06/21/21 10:25> Attestations NPU Medical Necessity Statement*: Inpatient hospitalization is medically necessary and the clinically appropriate intervention, at this time. We will monitor medications and make changes as indicated. Likely length of stay is ten to fourteen days. <Jermaine Pederson MD - Last Filed: 06/22/21 06:26> Other Attestations: Other Attestations: I interviewed the patient independently as well as reviewed the case with the medical student and agree with the documentation as it is stated above. Patient continues to take the medication with which he has comfort but is not open to the medication that has shown success and really breaking his psychosis. He continues to be floridly psychotic though mildly better with the adherence to his medication. He is avoiding violent outbursts which he is known to have but likely when the 21-day hold circumstance is brought to his attention the situation might change. Tomorrow we will likely submit 21-day hold and address with him the fact that he had success with Invega and the Invega injection and that is our recommendation to help him lift the psychosis. <Jermaine Pederson MD - Last Filed: 06/22/21 06:26> Coding Level of Care Code Acute Director Of Event Marketing for Chg Fwd Diagnoses Methamphetamine dependence F15.20 Chronic schizophrenia F20.9
[2021-06-21 14:00] VITALS: RESP 16
[2021-06-21 20:31] VITALS: BP 132/85; PULSE 88; RESP 18; TEMP 37.2; O2SAT 98
[2021-06-21] MEDS: quetiapine 300 mg Tablet PO (21:28)
[2021-06-22 06:00] VITALS: BP 117/79; PULSE 87; RESP 15; TEMP 36.6; O2SAT 96
[2021-06-22] MEDS: divalproex ER 500 mg Tablet (24H) PO (09:57)
--- NOTE | 2021-06-22 11:31 | PM.NPN ---
Subjective NPU Medications: Medication Review Details: I met with the patient in the hallway outside of his room. He remains highly suspicious of me. He refused to answer any questions. He repeatedly stated that he is fine and that if I am going to asks the same questions as I did yesterday that the answers will be the same. When Dr. Pederson informed the patient of the potential need for him to stay longer and for the addition of another medication, the patient refused the medication, became even more irritable, but was willing to stay longer in order to see the other doctor. After the conclusion of this conversation, the patient followed us down the hallway shouting that Dr. Pederson was not a real doctor. The patient remains agitated and spends most of his time pacing. Just speaking with the patient irritates him and if you attempt to give him new information or disagree with him he becomes even more agitated. <Javi Andrea MED STDNT - Last Filed: 06/22/21 11:38> Mental Status Exam MSE Comments: The patient is a white male in hospital scrubs with limited grooming adequate eye contact. Psychomotor agitation is noted. Speech was increased rate and especially volume. The patient refused to answer questions about mood, affect remains agitated. Thought process is disorganized. The patient refused to answer questions about suicidal or homicidal ideation, paranoia, audio or visual hallucinations. Attention and concentration are significantly impaired. Memory is intact to exam. Insight, judgment, and impulse control are all impaired. <Javi Andrea MED STDNT - Last Filed: 06/22/21 11:38> Vitals/I&O/Wt Last Vital Signs Temp 97.9 F 06/22/21 06:00 Pulse 87 06/22/21 06:00 Resp 15 06/22/21 06:00 BP 117/79 06/22/21 06:00 Pulse Ox 96 06/22/21 06:00 <DIANE Meza STDNT - Last Filed: 06/22/21 11:38> Data NPU : 06/19/21 08:07 06/19/21 08:07 <Javi Andrea MED STDNT - Last Filed: 06/22/21 11:38> A&P Assessment and plan (1) Methamphetamine dependence: Status: Chronic <Javi Andrea MED STDNT - Last Filed: 06/22/21 11:38> (2) Chronic schizophrenia: Status: Chronic <Javi AndreaDIANE STDNT - Last Filed: 06/22/21 11:38> Additional A&P Information Patient is a 46-year-old, white male, well known to this system with a long history of psychosis, some past cannabis use, with no current drug screen obtained, with history of long hospitalizations secondary to being off of medication and/or sometimes concerns for active addiction, but many times just purely psychotic secondary to his organic disease, who presents open to taking some medication but likely needing a larger intervention to get him well again. RECOMMENDATION AND PLAN: 1. Continue current medication. 2. Encourage individual, group, and milieu therapy. 3. Continue q-15 minute checks for safety. 4. We will be prepared to put a 21-day hold in and try to restore him to the medication that gave him the ability to have a productive existence outside of the hospital. <DIANE Meza STDNT - Last Filed: 06/22/21 11:38> Involuntary Hold Information 96 Hour Hold: 96 Hour Involuntary Admission: Yes <Javi AndreaDIANE STDNT - Last Filed: 06/22/21 11:38> 96 Hour Hold Ending Date: 04/21/20 <DIANE Meza STDNT - Last Filed: 06/22/21 11:38> 96 Hour Hold Ending Time: 21:49 <Javipelon DonovanDIANE segura STDNT - Last Filed: 06/22/21 11:38> Attestations NPU Medical Necessity Statement*: . <Javi VenusDIANE segura STDNT - Last Filed: 06/22/21 11:38> Inpatient hospitalization is medically necessary and the clinically appropriate intervention, at this time. We will monitor medications and make changes as indicated. Likely length of stay is ten to fourteen days. <Jermaine Pederson MD - Last Filed: 06/23/21 09:05> Other Attestations: Other Attestations: I interviewed the patient independently as well as reviewed the case with the medical student and agree with the documentation as it is stated above. Patient continues to take the medication with which he has comfort but is not open to the medication that has shown success and really breaking his psychosis. He refused to consider the Invega or abilify or injections to insure his return to baseline. He continues to be floridly psychotic though mildly better with the adherence to his medication. 21 day hold paperwork submitted and hearing 06/24/21 @0900. Recommendation is to restart Invega to address since he had success with Invega and the Invega injection. <Jermaine Pederson MD - Last Filed: 06/23/21 09:05> Coding Level of Care Code Acute Booth Cleaner for Chg Fwd Diagnoses Methamphetamine dependence F15.20 Chronic schizophrenia F20.9
[2021-06-22 13:37] VITALS: RESP 18
--- NOTE | 2021-06-22 13:37 | PC.NURSE ---
patient refused vital signs, patient up walking and talking in the halls. Respirations is 18
[2021-06-22] MEDS: quetiapine 300 mg Tablet PO (21:03)
[2021-06-23 05:22] VITALS: BP 113/85; PULSE 101; RESP 18; O2SAT 100
[2021-06-23] MEDS: divalproex ER 500 mg Tablet (24H) PO (08:13)
[2021-06-23 13:58] VITALS: RESP 18
[2021-06-23] MEDS: nicotine 2 mg Gum BUCCAL (17:06)
--- NOTE | 2021-06-23 17:59 | P.PN_ITS ---
Subjective NPU Subjective: Interval history: Patient presents today continuing to be quite religiously preoccupied and essentially spending the entire day speaking to himself and answering back to himself but reporting that he is speaking to God of the God speaking to him. Spending significant time pacing the hallways and in his room with his incessant talk. He continues to be of the position that he will except the additional 21-day hold but then just continue to do treatment as he believes he should feel the other doctor arrived that he can get a psych opinion that he is convinced will be in his favor. Mental Status Exam MSE Comments: This is a overweight but well-developed white male in hospital scrubs with limited grooming and adequate eye contact. Psychomotor agitation is noted. Speech was increased rate and and at times volume. Mood reported as fine, affect remains agitated. Thought process is disorganized. Thought content: Patient denies suicidal or homicidal ideations, there are no delusions reported but clear paranoid and hyperreligious delusions noted, he denies any au ditory or visual hallucinations but is clearly internally preoccupied and responding to internal stimulus. Attention and concentration are significantly impaired. Memory is intact to exam. Insight, judgment, and impulse control are all impaired. Vitals/I&O/Wt Last Vital Signs Temp 97.9 F 06/23/21 21:23 Pulse 98 06/23/21 21:23 Resp 18 06/23/21 21:23 BP 113/85 06/23/21 21:23 Pulse Ox 100 06/23/21 21:23 Data NPU : 06/19/21 08:07 06/19/21 08:07 A&P Assessment and plan (1) Schizoaffective disorder, bipolar type: Status: Acute (2) Methamphetamine dependence: Status: Chronic (3) Chronic schizophrenia: Status: Chronic Additional A&P Information Patient is a 46-year-old, white male, well known to this system with a long history of psychosis, some past cannabis use, with no current drug screen obtained, with history of long hospitalizations secondary to being off of m edication and/or sometimes concerns for active addiction, but many times just purely psychotic secondary to his organic disease, who presents open to taking some medication but likely needing a larger intervention to get him well again. RECOMMENDATION AND PLAN: 1. Continue current medication. 2. Encourage individual, group, and milieu therapy. 3. Continue q-15 minute checks for safety. 4. We will be prepared to put a 21-day hold in and try to restore him to the medication that gave him the ability to have a productive existence outside of the hospital. Involuntary Hold Information 96 Hour Hold: 96 Hour Involuntary Admission: Yes 96 Hour Hold Ending Date: 04/21/20 96 Hour Hold Ending Time: 21:49 Attestations NPU Medical Necessity Statement*: Inpatient hospitalization is medically necessary and the clinically appropriate intervention, at this time. We will monitor medications and make changes as indicated. Likely length of stay is ten to fourt een days. 21-day hold hearing tomorrow. Coding Level of Care Code Acute Community Relations Representative for Brian Beltran Diagnoses Schizoaffective disorder, bipolar type F25.0 Methamphetamine dependence F15.20 Chronic schizophrenia F20.9
[2021-06-23] MEDS: quetiapine 300 mg Tablet PO (21:22)
[2021-06-23 21:23] VITALS: BP 113/85; PULSE 98; RESP 18; TEMP 36.6; O2SAT 100
[2021-06-24 06:00] VITALS: BP 113/85; PULSE 98; RESP 18; TEMP 36.6; O2SAT 100
[2021-06-24] MEDS: nicotine 2 mg Gum BUCCAL ×2 (07:48→12:36)
--- NOTE | 2021-06-24 07:49 | PC.RESP ---
SMOKING CESSATION INFORMATION SENT TO PATIENT.
[2021-06-24] MEDS: divalproex ER 500 mg Tablet (24H) PO (09:59)
[2021-06-24 14:00] VITALS: RESP 18
[2021-06-24] MEDS: acetaminophen 325 mg Tablet 650 MG PO (18:14)
[2021-06-24] MEDS: paliperidone palmitate 234 mg Syringe IM (18:21)
--- NOTE | 2021-06-24 19:33 | PM.NPN ---
Subjective NPU Subjective: Interval history: Patient presents today continuing to have almost continuous phone conversation with himself where he reports he talk to God. Took considerable period of time to try to convince him the benefits of restarting the Invega that we started before that later became an injection that was the impetus for his significant improvement but he was unwilling to consider it and did not believe that the court injunction gave us to write to treat him ultimately we explained to him that he did not have an option he needed to take the injection and eventually go to sleep up to the 234 mg IM in his deltoid and then said that we were injecting holy water into him and the Invega would miraculously end up in this typewriter assembler. Mental Status Exam MSE Comments: This is a overweight but well-developed white male in hospital scrubs with limited grooming and adequate eye contact. Psychomotor agitation is noted. Speech was increased rate and and at times volume. Mood reported as OK, affect remains agitated. Thought process is disorganized. Thought content: Patient denies suicidal or homicidal ideations, there are no delusions reported but clear paranoid and hyperreligious delusions noted, he denies any auditory or visual hallucinations but is clearly internally preoccupied and responding to internal stimulus. Attention and concentration are significantly impaired. Memory is intact to exam. Insight, judgment, and impulse control are all impaired. Vitals/I&O/Wt Last Vital Signs Temp 98.0 F 06/24/21 22:00 Pulse 73 06/24/21 22:00 Resp 19 H 06/24/21 22:00 BP 144/96 06/24/21 22:00 Pulse Ox 98 06/24/21 22:00 Data NPU : 06/19/21 08:07 06/19/21 08:07 A&P Additional A&P Information (1) Schizoaffective disorder, bipolar type: (2) Methamphetamine dependence: (3) Chronic schizophrenia: Additional A&P Information Patient is a 46-year-old, white male, well known to this system with a long history of psychosis, some past cannabis use, with no current drug screen obtained, with history of long hospitalizations secondary to being off of medication and/or sometimes concerns for active addiction, but many times just purely psychotic secondary to his organic disease, who presents open to taking some medication but likely needing a larger intervention to get him well again. RECOMMENDATION AND PLAN: 1. Continue current medication. 2. Encourage individual, group, and milieu therapy. 3. Continue q-15 minute checks for safety. 4. 21-day hold was granted we will start Invega injection. Involuntary Hold Information 96 Hour Hold: 96 Hour Involuntary Admission: Yes 96 Hour Hold Ending Date: 04/21/20 96 Hour Hold Ending Time: 21:49 Attestations NPU Medical Necessity Statement*: Inpatient hospitalization is medically necessary and the clinically appropriate intervention, at this time. We will monitor medications and make changes as indicated. Likely length of stay is ten to fourteen days. Coding Level of Care Code Acute Ignition Mechanic for Brian Beltran
[2021-06-24] MEDS: quetiapine 300 mg Tablet PO (20:58)
[2021-06-24 22:00] VITALS: BP 144/96; PULSE 73; RESP 19; TEMP 36.7; O2SAT 98
--- NOTE | 2021-06-24 23:05 | PC.NURSE ---
Shift Assessment - patient refused to let this television news reporter listen to his heart and lungs. States he is fine and isn't having any problems . Patient has been preaching to windows and doors all evening. When approached he will stop and answer questions with short answers, turn his back and begin talking about slaying the unrighteous, mixing the [place]is[place] blood with blood, and moving the great rocks . will continue to monitor.
[2021-06-25] MEDS: nicotine 2 mg Gum BUCCAL ×2 (00:36→16:41)
[2021-06-25 06:00] VITALS: RESP 16
[2021-06-25] MEDS: divalproex ER 500 mg Tablet (24H) PO (07:51)
[2021-06-25 14:00] VITALS: RESP 17
--- NOTE | 2021-06-25 17:43 | P.PN_ITS ---
Subjective NPU Subjective: Interval history: Paul presents today denying any problems in continuing to stress that his medications are Seroquel and Depakote. We continue to support the fact that he has done better with the addition of Invega and await the impact of the long-acting injectable. He continues to walk around the hallways and staring appears talking to himself and GOD. He denies any issues. Mental Status Exam MSE Comments: This is a overweight but well-developed white male in hospital scrubs with limited grooming and adequate eye contact. Psychomotor agitation is noted, but less extreme. Speech was mostly normal rate and volume and at times increased rate and volume. Mood reported as OK, affect less agitated. Thought process is disorganized, with some improvement. Thought content: Patient denies suicidal or homicidal ideations, there are no delusions reported but clear p aranoid and hyperreligious delusions noted, he denies any auditory or visual hallucinations but is clearly internally preoccupied and responding to internal stimulus. Attention and concentration are impaired memory is unreliable but none were formally tested. Insight, judgment, and impulse control are all impaired. Vitals/I&O/Wt Last Vital Signs Temp 98.0 F 06/24/21 22:00 Pulse 73 06/24/21 22:00 Resp 18 06/25/21 22:00 BP 144/96 06/24/21 22:00 Pulse Ox 98 06/24/21 22:00 Weight last 48 hrs Weight 97.069 kg Data NPU : 06/19/21 08:07 06/19/21 08:07 A&P Additional A&P Information (1) Schizoaffective disorder, bipolar type: (2) Methamphetamine dependence: (3) Chronic schizophrenia: Additional A&P Information Patient is a 46-year-old, white male, well known to this system with a long history of psychosis, some past cannabis use, with no current drug screen obtained, with history of long hospitalizations secondary to being off of medication and/or sometimes concerns for active addiction, but many times just purely psychotic secondary to his organic disease, who presents open to taking some medication but likely needing a larger intervention to get him well again. RECOMMENDATION AND PLAN: 1. Continue current medication. 2. Encourage individual, group, and milieu therapy. 3. Continue q-15 minute checks for safety. 4. On 21-day hold and received the Invega Sustenna injection. Involuntary Hold Information 96 Hour Hold: 96 Hour Involuntary Admission: Yes 96 Hour Hold Ending Date: 04/21/20 96 Hour Hold Ending Time: 21:49 Attestations NPU Medical Necessity Statement*: Inpatient hospitalization is medically necessary and the clinically appropriate intervention, at this time. We will monitor medications and make changes as indicated. Likely length of stay is 9-13 days. Coding Level of Care Code Acute Case Management Social Worker for Brian Beltran
[2021-06-25] MEDS: quetiapine 300 mg Tablet PO (20:57)
[2021-06-25 22:00] VITALS: RESP 18
[2021-06-26 05:22] VITALS: BMI 28.2
[2021-06-26 06:00] VITALS: RESP 19
--- NOTE | 2021-06-26 06:33 | PC.NURSE ---
Patient refused vitals. Respirations were taken.
[2021-06-26] MEDS: divalproex ER 500 mg Tablet (24H) PO (08:08)
[2021-06-26] MEDS: nicotine 2 mg Gum BUCCAL (08:56)
[2021-06-26 14:00] VITALS: RESP 17
--- NOTE | 2021-06-26 17:24 | PM.NPN ---
Subjective NPU Subjective: Interval history: Patient presents today continuing to have significant self talk and speaking to himself but clearly less agitated in the process. Pacing the halls less rapidly but continues to spend much of his time talking to God. He is aware there is a second injection due this week of his Invega. Mental Status Exam MSE Comments: This is a overweight but well-developed white male in hospital scrubs with adequate grooming and adequate eye contact. No abnormal movements. More cooperative with exam in no acute distress. Speech was mostly normal rate and volume. Mood reported as OK, affect more calm. Thought process is disorganized, with some improvement. Thought content: Patient denies suicidal or homicidal ideations, there are no delusions reported but clear paranoid and hyperreligious delusions noted, he denies any auditory or visual hallucinations but is clearly internally preoccupied and responding to internal stimulus. Attention and concentration are impaired memory is unreliable but none were formally tested. Insight, judgment, and impulse control are all impaired. Vitals/I&O/Wt Last Vital Signs Temp 98.0 F 06/24/21 22:00 Pulse 73 06/24/21 22:00 Resp 18 06/26/21 21:13 BP 144/96 06/24/21 22:00 Pulse Ox 98 06/24/21 22:00 Weight last 48 hrs Weight 97.069 kg Data NPU : 06/19/21 08:07 06/19/21 08:07 A&P Additional A&P Information (1) Schizoaffective disorder, bipolar type: (2) Methamphetamine dependence: (3) Chronic schizophrenia: Additional A&P Information Patient is a 46-year-old, white male, well known to this system with a long history of psychosis, some past cannabis use, with no current drug screen obtained, with history of long hospitalizations secondary to being off of medication and/or sometimes concerns for active addiction, but many times just purely psychotic secondary to his organic disease, who presents open to taking some medication but likely needing a larger intervention to get him well again. RECOMMENDATION AND PLAN: 1. Continue current medication. 2. Encourage individual, group, and milieu therapy. 3. Continue q-15 minute checks for safety. 4. On 21-day hold and received the first Invega Sustenna injection. Involuntary Hold Information 96 Hour Hold: 96 Hour Involuntary Admission: Yes 96 Hour Hold Ending Date: 04/21/20 96 Hour Hold Ending Time: 21:49 Attestations NPU Medical Necessity Statement*: Inpatient hospitalization is medically necessary and the clinically appropriate intervention, at this time. We will monitor medications and make changes as indicated. Likely length of stay is 9-13 days. Coding Level of Care Code Acute Auto Inspection Specialist for Brian Beltran
[2021-06-26 21:13] VITALS: RESP 18
--- NOTE | 2021-06-26 21:13 | PC.NURSE ---
pt refused vitals/aid observed respirations/dalila/[id number]
[2021-06-26] MEDS: quetiapine 300 mg Tablet PO (21:52)
[2021-06-27 06:00] VITALS: BP 127/78; PULSE 85; RESP 18; TEMP 37.2; O2SAT 99
[2021-06-27] MEDS: divalproex ER 500 mg Tablet (24H) PO (08:08)
--- NOTE | 2021-06-27 12:43 | PM.NPN ---
Subjective NPU Subjective: Interval history: Patient presents today continuing to speak to himself and have significant response to internal stimuli. He continues to endorse speaking to God and is doing better. He is still resistant to conversations about treatment but not as aggressively. We discussed the fact that he would get his next injection this week and he began speaking about the injection is being holy water and him somehow having the power to make the Invega go into this scientific technical writer and only holy water going to him. Mental Status Exam MSE Comments: This is a overweight but well-developed white male in hospital scrubs with adequate grooming and adequate eye contact. No abnormal movements. More cooperative with exam in no acute distress. Speech was mostly normal rate and volume. Mood reported as OK, affect more calm. Thought process is disorganized, with some improvement. Thought content: Patient denies suicidal or homicidal ideations, there are no delusions reported but clear paranoid and hyperreligious delusions noted, he denies any auditory or visual hallucinations but is clearly internally preoccupied and responding to internal stimulus. Attention and concentration are impaired memory is unreliable but none were formally tested. Insight, judgment, and impulse control are all impaired. Vitals/I&O/Wt Last Vital Signs Temp 98.9 F 06/27/21 06:00 Pulse 85 06/27/21 06:00 Resp 18 06/27/21 06:00 BP 127/78 06/27/21 06:00 Pulse Ox 99 06/27/21 06:00 Weight last 48 hrs Weight 97.069 kg Data NPU : 06/19/21 08:07 06/19/21 08:07 A&P Additional A&P Information (1) Schizoaffective disorder, bipolar type: (2) Methamphetamine dependence: (3) Chronic schizophrenia: Patient is a 46-year-old, white male, well known to this system with a long history of psychosis, some past cannabis use, with no current drug screen obtained, with history of long hospitalizations secondary to being off of medication and/or sometimes concerns for active addiction, but many times just purely psychotic secondary to his organic disease, who presents open to taking some medication but likely needing a larger intervention to get him well again. RECOMMENDATION AND PLAN: 1. Continue current medication. 2. Encourage individual, group, and milieu therapy. 3. Continue q-15 minute checks for safety. 4. On 21-day hold and received the first Invega Sustenna injection. Involuntary Hold Information 96 Hour Hold: 96 Hour Involuntary Admission: Yes 96 Hour Hold Ending Date: 04/21/20 96 Hour Hold Ending Time: 21:49 Attestations NPU Medical Necessity Statement*: Inpatient hospitalization is medically necessary and the clinically appropriate intervention, at this time. We will monitor medications and make changes as indicated. Likely length of stay is 9-13 days. Coding Level of Care Code Acute Fraud Prevention Analyst for Brian Beltran
[2021-06-27 14:00] VITALS: RESP 17
[2021-06-27 21:03] VITALS: RESP 22
[2021-06-27] MEDS: nicotine 2 mg Gum BUCCAL (21:38)
[2021-06-27] MEDS: quetiapine 300 mg Tablet PO (22:40)
[2021-06-28 06:00] VITALS: RESP 19
--- NOTE | 2021-06-28 06:01 | PC.NURSE ---
pt refused vitals at this time/respirations were observed/dalila
[2021-06-28] MEDS: divalproex ER 500 mg Tablet (24H) PO (08:16)
--- NOTE | 2021-06-28 12:36 | NPU.GN ---
[facility] Topic:Coping Skills General Mood of Group:Refused group.
[2021-06-28] MEDS: nicotine 2 mg Gum BUCCAL (13:52)
[2021-06-28 14:00] VITALS: RESP 18
--- NOTE | 2021-06-28 16:04 | PC.NURSE ---
PATIENT REFUSED VITALS. WILL CONTINUE TO MONITOR.
--- NOTE | 2021-06-28 17:59 | P.PN_ITS ---
Subjective NPU Subjective: Interval history: Patient presents today without any significant changes. He continues to be isolative spending time in his room talking to himself may be less dramatically. We continue to discuss the scheduled injection for the end of the week. He continues to embrace that he will take it but also identifies that he does not believe anything other than holy water will come into him. Mental Status Exam MSE Comments: This is a overweight but well-developed white male in hospital scrubs with adequate grooming and adequate eye contact. No abnormal movements. More cooperative with exam in no acute distress. Speech was mostly normal rate and volume. Mood reported as OK, affect mostly calm. Thought process is mostly organized. Thought content: Patient denies suicidal or homicidal ideations, there are no delusions reported but clear paranoid and hyperreligious delusions noted, he denies any auditory or visual hallucinations but is clearly internally preoccupied and responding to internal stimulus. Attention and concentration are impaired memory is unreliable but none were formally tested. Insight, judgment, and impulse control are all impaired. Vitals/I&O/Wt Last Vital Signs Temp 98.9 F 06/27/21 06:00 Pulse 85 06/27/21 06:00 Resp 16 06/28/21 20:08 BP 127/78 06/27/21 06:00 Pulse Ox 99 06/27/21 06:00 Data NPU : 06/19/21 08:07 06/19/21 08:07 A&P Additional A&P Information (1) Schizoaffective disorder, bipolar type: (2) Methamphetamine dependence: (3) Chronic schizophrenia: Patient is a 46-year-old, white male, well known to this system with a long history of psychosis, some past cannabis use, with no current drug screen obtained, with history of long hospitalizations secondary to being off of medication and/or sometimes concerns for active addiction, but many times just purely psychotic secondary to his organic disease, who presents open to taking some medication but likely needing a larger intervention to get him well again. RECOMMENDATION AND PLAN: 1. Continue current medication. 2. Encourage individual, group, and milieu therapy. 3. Continue q-15 minute checks for safety. 4. On 21-day hold and received the first Invega Sustenna injection. Involuntary Hold Information 96 Hour Hold: 96 Hour Involuntary Admission: Yes 96 Hour Hold Ending Date: 04/21/20 96 Hour Hold Ending Time: 21:49 Attestations NPU Medical Necessity Statement*: Inpatient hospitalization is medically necessary and the clinically appropriate intervention, at this time. We will monitor medications and make changes as indicated. Likely length of stay is 9-13 days. Coding Level of Care Code Acute Solid Waste Landfill Technician for Brian Beltran
[2021-06-28 20:08] VITALS: RESP 16
--- NOTE | 2021-06-28 20:08 | PC.NURSE ---
pt refused vitals at this time/respirations observed
[2021-06-28] MEDS: quetiapine 300 mg Tablet PO (21:42)
[2021-06-29 06:00] VITALS: RESP 16
--- NOTE | 2021-06-29 06:37 | PC.NURSE ---
pt refused vitals/respirations were observed
[2021-06-29] MEDS: divalproex ER 500 mg Tablet (24H) PO (08:07)
--- NOTE | 2021-06-29 08:32 | PC.NURSE ---
PT REFUSES TO LET NURSING STAFF PERFORM PHYSICAL ASSESSMENT. NO SIGNS OF DISTRESS NOTED. PT REPORTS NO DIFFICULTY BREATHING AND NO OTHER PHYSICAL DISTRESS.
[2021-06-29] MEDS: nicotine 2 mg Gum BUCCAL (12:51)
--- NOTE | 2021-06-29 17:37 | P.PN_ITS ---
Subjective NPU Subjective: Interval history: Patient presents today showing some continued signs of slow improvement. His pacing has diminished to some degree and his attending to internal stimuli and speaking to himself and responding continues to slow decrease. He has moments of increased clarity that give hope of possible recovery. He was very happy to know that the 21-day hold is not maria a ething that has to be completed but that he is able to discharge as soon as he is well enough. We discussed the fact that with his second injection on Sunday that we are very hopeful that sometime next week we might feel safe enough to discharge him. He was interested in whether or not we would give him at least a month supply medication at discharge. Mental Status Exam MSE Comments: This is a overweight but well-developed white male in hospital scrubs with adequate grooming and adequate eye contact. No abnormal movements. More cooperative with exam in no acute distress. Speech was mostly normal rate and volume. Mood reported asalright, affect mostly calm. Thought process is mostly organized. Thought content: Patient denies suicidal or homicidal ideations, there are no delusions reported and less paranoid and hyperreligious delusions noted, he denies any auditory or visual hallucinations and is less internally preoccupied and responding to internal stimulus. Attention and concentration are impaired memory is unreliable but none were formally tested. Insight, judgment, and impulse control are all limited, but improving. Vitals/I&O/Wt Last Vital Signs Temp 98.9 F 06/29/21 22:00 Pulse 85 06/29/21 22:00 Resp 16 06/29/21 22:00 BP 127/78 06/27/21 06:00 Pulse Ox 99 06/29/21 22:00 Data NPU : 06/19/21 08:07 06/19/21 08:07 A&P Additional A&P Information (1) Schizoaffective disorder, bipolar type: (2) Methamphetamine dependence: (3) Chronic schizophrenia: Patient is a 46-year-old, white male, well known to this system with a long history of psychosis, some past cannabis use, with no current drug screen obt ained, with history of long hospitalizations secondary to being off of medication and/or sometimes concerns for active addiction, but many times just purely psychotic secondary to his organic disease, who presents open to taking some medication but likely needing a larger intervention to get him well again. RECOMMENDATION AND PLAN: 1. Continue current medication. 2. Encourage individual, group, and milieu therapy. 3. Continue q-15 minute checks for safety. 4. On 21-day hold and will receive second Invega Sustenna injection Sunday. Involuntary Hold Information 96 Hour Hold: 96 Hour Involuntary Admission: Yes 96 Hour Hold Ending Date: 04/21/20 96 Hour Hold Ending Time: 21:49 Attestations NPU Medical Necessity Statement*: Inpatient hospitalization is medically necessary and the clinically appropriate intervention, at this time. We will monitor me dications and make changes as indicated. Likely length of stay is 7-12 days. Coding Level of Care Code Acute Bolt Sawyer for Brian Beltran
[2021-06-29 22:00] VITALS: PULSE 85; RESP 16; TEMP 37.2; O2SAT 99
[2021-06-29] MEDS: quetiapine 300 mg Tablet PO (22:13)
[2021-06-30 06:00] VITALS: RESP 21
[2021-06-30] MEDS: divalproex ER 500 mg Tablet (24H) PO (08:21)
[2021-06-30] MEDS: nicotine 2 mg Gum BUCCAL ×3 (08:57→19:48)
--- NOTE | 2021-06-30 10:04 | PC.NURSE ---
Patient punched fire extinguisher box on the wall after he made a phone call and was becoming agitated.
[2021-06-30 14:00] VITALS: RESP 16
--- NOTE | 2021-06-30 15:25 | PC.NURSE ---
patient refused vitals.
--- NOTE | 2021-06-30 18:32 | PM.NPN ---
Subjective NPU Subjective: Interval history: Patient presents today somewhat fixated on the fact this proposal lead writer discussed his improvement and the possibility of him being well enough next week to get discharged. He also was focused on his money which is a recurrent theme and whether he is going to a homeless nursing home or not. We discussed there likely being other more structured options to consider and he wondered about him having his own place but problematically wondered about him completely managing his own money which is a common thing but not likely in his best interest to completely manage his funds Mental Status Exam MSE Comments: This is a overweight but well-developed white male in hospital scrubs with adequate grooming and adequate eye contact. No abnormal movements. More cooperative with exam in no acute distress. Speech was mostly normal rate and volume. Mood reported asalright, affect mostly calm. Thought process is mostly organized. Thought content: Patient denies suicidal or homicidal ideations, there are no delusions reported and less paranoid and hyperreligious delusions noted, he denies any auditory or visual hallucinations and is less internally preoccupied and responding to internal stimulus. Attention and concentration are impaired memory is unreliable but none were formally tested. Insight, judgment, and impulse control are all limited, but improving. Vitals/I&O/Wt Last Vital Signs Temp 98.9 F 06/29/21 22:00 Pulse 85 06/29/21 22:00 Resp 18 06/30/21 20:20 BP 127/78 06/27/21 06:00 Pulse Ox 99 06/29/21 22:00 Data NPU : 06/19/21 08:07 06/19/21 08:07 A&P Additional A&P Information (1) Schizoaffective disorder, bipolar type: (2) Methamphetamine dependence: (3) Chronic schizophrenia: Patient is a 46-year-old, white male, well known to this system with a long history of psychosis, some past cannabis use, with no current drug screen obtained, with history of long hospitalizations secondary to being off of medication and/or sometimes concerns for active addiction, but many times just purely psychotic secondary to his organic disease, who presents open to taking some medication but likely needing a larger intervention to get him well again. RECOMMENDATION AND PLAN: 1. Continue current medication. 2. Encourage individual, group, and milieu therapy. 3. Continue q-15 minute checks for safety. 4. On 21-day hold and will receive second Invega Sustenna injection IM into the deltoid tomorrow. Involuntary Hold Information 96 Hour Hold: 96 Hour Involuntary Admission: Yes 96 Hour Hold Ending Date: 04/21/20 96 Hour Hold Ending Time: 21:49 Attestations NPU Medical Necessity Statement*: Inpatient hospitalization is medically necessary and the clinically appropriate intervention, at this time. We will monitor medications and make changes as indicated. Likely length of stay is 6-11 days. Coding Level of Care Code Acute Contract Sheltered Workshop Supervisor for Brian Beltran
[2021-06-30] MEDS: quetiapine 300 mg Tablet PO (19:49)
[2021-06-30 20:20] VITALS: RESP 18
--- NOTE | 2021-06-30 20:20 | PC.NURSE ---
Patient refused vitals. Respirations were taken.
[2021-07-01 06:00] VITALS: PULSE 85; RESP 18; TEMP 37.2; O2SAT 99
[2021-07-01] MEDS: divalproex ER 500 mg Tablet (24H) PO (08:08)
--- NOTE | 2021-07-01 08:21 | PM.NPN ---
Subjective NPU Subjective: Interval history: Patient presents today reporting that he is doing okay. He received a second shot of Invega Sustenna in the loading dose. He continues today, that is wholly water and that somehow the Invega went into this job specification writer system. He took the injection without major conflict. He continues to be focused on where he will go and hopefully he can get greater access to his money. Mental Status Exam MSE Comments: This is a overweight but well-developed white male in hospital scrubs with adequate grooming and adequate eye contact. No abnormal movements. More cooperative with exam in no acute distress. Speech was mostly normal rate and volume. Mood reported as alright, affect mostly calm except for little irritability towards this job specification writer after he had injection. Thought process is mostly organized. Thought content: Patient denies suicidal or homicidal ideations, there are no delusions reported and less paranoid and hyperreligious delusions noted, he denies any auditory or visual hallucinations and is less internally preoccupied and responding to internal stimulus. Attention and concentration are impaired memory is unreliable but none were formally tested. Insight, judgment, and impulse control are all limited, but improving. Vitals/I&O/Wt Last Vital Signs Temp 98.9 F 07/01/21 06:00 Pulse 85 07/01/21 06:00 Resp 18 07/01/21 06:00 BP 127/78 06/27/21 06:00 Pulse Ox 99 07/01/21 06:00 Data NPU : 06/19/21 08:07 06/19/21 08:07 A&P Additional A&P Information (1) Schizoaffective disorder, bipolar type: (2) Methamphetamine dependence: (3) Chronic schizophrenia: Patient is a 46-year-old, white male, well known to this system with a long history of psychosis, some past cannabis use, with no current drug screen obtained, with history of long hospitalizations secondary to being off of medication and/or sometimes concerns for active addiction, but many times just purely psychotic secondary to his organic disease, who presents open to taking some medication but likely needing a larger intervention to get him well again. RECOMMENDATION AND PLAN: 1. Continue current medication. 2. Encourage individual, group, and milieu therapy. 3. Continue q-15 minute checks for safety. 4. On 21-day hold and will receive second Invega Sustenna injection IM into the deltoid tomorrow. Involuntary Hold Information 96 Hour Hold: 96 Hour Involuntary Admission: Yes 96 Hour Hold Ending Date: 04/21/20 96 Hour Hold Ending Time: 21:49 Attestations NPU Medical Necessity Statement*: Inpatient hospitalization is medically necessary and the clinically appropriate intervention, at this time. We will monitor medications and make changes as indicated. Likely length of stay is 5-10 days. Coding Level of Care Code Acute Waist Pleater for Brian Beltran
[2021-07-01] MEDS: nicotine 2 mg Gum BUCCAL ×2 (09:26→16:59)
--- NOTE | 2021-07-01 10:36 | DCPLANNER ---
IMM's not completed with pt at this time due to pt arriving on 96 hour hold and currently on 21 day hold.
[2021-07-01] MEDS: paliperidone palmitate 156 mg Syringe IM (11:00)
[2021-07-01 14:00] VITALS: RESP 16
[2021-07-01 20:57] VITALS: RESP 18
[2021-07-01] MEDS: quetiapine 300 mg Tablet PO (21:31)
[2021-07-02 06:00] VITALS: PULSE 85; RESP 18; TEMP 37.2; O2SAT 99
--- NOTE | 2021-07-02 08:38 | P.PN_ITS ---
Subjective NPU Subjective: Interval history: Patient presents today continuing to make slow steps. He continues to be focused on his payee and how she is limiting his ability to be functional from his perspective. I continue to discuss his wellness and the impact of medication on that. We discussed him regularly and I agreed with him that if he were on his medication and doing well and stable him living in some kind of efficiency apartment would likely be fine. He continues to have highly religiously motivated talk but less openly talking to himself. Mental Status Exam MSE Comments: This is a overweight but well-developed white male in hospital scrubs with adequate grooming and adequate eye contact. No abnormal movements. More cooperative with exam in no acute distress. Speech was mostly normal rate and volume. Mood reported as alright, affect mostly calm . Thought process is mostly organized. Thought content: Patient denies suicidal or homicidal ideations, there are no delusions reported and less paranoid and hyperreligious delusions noted, he denies any auditory or visual hallucinations and is less internally preoccupied and less response to internal stimulus. Attention and concentration are improving and memory is unreliable but none were formally tested. Insight, judgment, and impulse control are all limited, but improving. Vitals/I&O/Wt Last Vital Signs Temp 98.9 F 07/02/21 06:00 Pulse 85 07/02/21 06:00 Resp 18 07/02/21 06:00 BP 127/78 06/27/21 06:00 Pulse Ox 99 07/02/21 06:00 Data NPU : 06/19/21 08:07 06/19/21 08:07 A&P Additional A&P Information (1) Schizoaffective disorder, bipolar type: (2) Methamphetamine dependence: (3) Chronic schizophrenia: Patient is a 46-year-old, white male, well known to this system with a long history of psychosis, some past cannabis use, with no current drug screen obtained, with history of long hospitalizations secondary to being off of medication and/or sometimes concerns for active addiction, but many times just purely psychotic secondary to his organic disease, who presents open to taking some medication but likely needing a larger intervention to get him well again. RECOMMENDATION AND PLAN: 1. Continue current medication. 2. Encourage individual, group, and milieu therapy. 3. Continue q-15 minute checks for safety. 4. On 21-day hold and has received the first 2 loading doses of Invega Sustenna.. Involuntary Hold Information 96 Hour Hold: 96 Hour Involuntary Admission: Yes 96 Hour Hold Ending Date: 04/21/20 96 Hour Hold Ending Time: 21:49 Attestations NPU Medical Necessity Statement*: Inpatient hospitalization is medically necessary and the clinically appropriate intervention, at this time. We will monitor medications and make changes as indicated. Likely length of stay is 5-9 days. Coding Level of Care Code Acute Resin Filterer for Brian Beltran
[2021-07-02] MEDS: divalproex ER 500 mg Tablet (24H) PO (08:41)
[2021-07-02] MEDS: nicotine 2 mg Gum BUCCAL ×2 (09:19→20:30)
[2021-07-02 14:00] VITALS: RESP 18
--- NOTE | 2021-07-02 17:03 | PC.NURSE ---
refused vitals Pt refused vitals this evening. Respirations 18
[2021-07-02] MEDS: quetiapine 300 mg Tablet PO (20:30)
[2021-07-02 22:00] VITALS: RESP 16
--- NOTE | 2021-07-02 23:05 | PC.NURSE ---
Patient refused vitals. Respirations were taken.
[2021-07-03] MEDS: nicotine 2 mg Gum BUCCAL ×3 (05:36→17:59)
[2021-07-03 06:00] VITALS: RESP 17; BMI 28.2
--- NOTE | 2021-07-03 07:35 | P.PN_ITS ---
Subjective NPU Subjective: Interval history: Patient presents today continuing his theme of what is he going to do after discharge. He continues to be focused on his payee and whether he will build to get money to get a place or be stuck in a homeless half-way. Additionally he has some clothes here and he was trying to figure out a way to get them washed but he is not wanting anyone else to wash it and even talked about having them given to him to wash in the sink. He is showing slow improvement but continues to be quite religiously preoccupied. Mental Status Exam MSE Comments: This is a overweight but well-developed white male in hospital scrubs with adequate grooming and adequate eye contact. No abnormal movements. More cooperative with exam in no acute distress. Speech was mostly normal rate and volume. Mood reported as pretty good, affect mostly calm . Thought process is mostly organized. Thought content: Patient denies suicidal or homicidal ideations, there are no delusions reported and less paranoid and hyperreligious delusions noted, he denies any auditory or visual hallucinations and is less internally preoccupied and less response to internal stimulus. Attention and concentration are improving and memory is unreliable but none were formally tested. Insight, judgment, and impulse control are all limited, but improving. Vitals/I&O/Wt Last Vital Signs Temp 98.9 F 07/02/21 06:00 Pulse 85 07/02/21 06:00 Resp 17 07/03/21 06:00 BP 127/78 06/27/21 06:00 Pulse Ox 99 07/02/21 06:00 Weight last 48 hrs Weight 97.069 kg Data NPU : 06/19/21 08:07 06/19/21 08:07 A&P Additional A&P Information (1) Schizoaffective disorder, bipolar type: (2) Methamphetamine dependence: (3) Chronic schizophrenia: Patient is a 46-year-old, white male, well known to this system with a long history of psychosis, some past cannabis use, with no current drug screen obtained, with history of long hospitalizations secondary to being off of medication and/or sometimes concerns for active addiction, but many times just purely psychotic secondary to his organic disease, who presents open to taking some medication but likely needing a larger intervention to get him well again. RECOMMENDATION AND PLAN: 1. Continue current medication. 2. Encourage individual, group, and milieu therapy. 3. Continue q-15 minute checks for safety. 4. On 21-day hold and has received the first 2 loading doses of Invega Sustenna.. Involuntary Hold Information 96 Hour Hold: 96 Hour Involuntary Admission: Yes 96 Hour Hold Ending Date: 04/21/20 96 Hour Hold Ending Time: 21:49 Attestations NPU Medical Necessity Statement*: Inpatient hospitalization is medically necessary and the clinically appropriate intervention, at this time. We will monitor medications and make changes as indicated. Likely length of stay is 4-8 days. Coding Level of Care Code Acute Flower Shop Laborer/Designer for Brian Beltran
[2021-07-03] MEDS: divalproex ER 500 mg Tablet (24H) PO (08:35)
[2021-07-03 14:00] VITALS: RESP 17
[2021-07-03 21:21] VITALS: RESP 18
[2021-07-03] MEDS: quetiapine 300 mg Tablet PO (22:11)
[2021-07-04] MEDS: nicotine 2 mg Gum BUCCAL ×3 (05:25→17:44)
[2021-07-04 06:00] VITALS: RESP 17
--- NOTE | 2021-07-04 06:27 | PC.NURSE ---
pt refused vitals at this time/respirations were observed
[2021-07-04] MEDS: divalproex ER 500 mg Tablet (24H) PO (08:29)
[2021-07-04 14:00] VITALS: RESP 18
--- NOTE | 2021-07-04 15:06 | PC.NURSE ---
PATIENT REFUSED VITALS, WILL CONTINUE TO MONITOR.
--- NOTE | 2021-07-04 16:52 | PM.NPN ---
Subjective NPU Subjective: Interval history: I met with the treatment team and Dr. Pederson to discuss the patient's progress. They feel that the Invega injections have been having a positive effect. He had been pacing, yelling, talking to God, and being very protective of his room. He is somewhat calmer now. The patient says he is doing all right, and spontaneously tells me that he does not have paranoid schizophrenia. He says that he just talks to himself because he is lonely. He talks about Archangel's and says they are not delusions. He says he wants to stay off drugs now. He denies auditory and visual hallucinations. Now he denies suicidal and homicidal ideation. He has no medication side effects. He would rather not take the Invega. Mental Status Exam MSE Comments: This is a overweight but well-developed white male in hospital scrubs with adequate grooming and adequate eye contact. No abnormal movements or tics noted. Cooperative with exam. In no acute distress. Speech was at a normal rate and volume. Mood reported as alright, affect mostly calm. Thought process is mostly organized. Thought content: Patient denies suicidal or homicidal ideations, there are no delusions reported and less paranoid and hyperreligious delusions noted, he denies any auditory or visual hallucinations and is less internally preoccupied and less response to internal stimulus. Attention and concentration are improving and memory is unreliable but none were formally tested. Insight, judgment, and impulse control are all limited, but improving. Vitals/I&O/Wt Last Vital Signs Temp 98.9 F 07/02/21 06:00 Pulse 85 07/02/21 06:00 Resp 14 07/04/21 22:00 BP 127/78 06/27/21 06:00 Pulse Ox 99 07/02/21 06:00 Weight last 48 hrs Weight 97.069 kg Data NPU : 06/19/21 08:07 06/19/21 08:07 A&P Assessment and plan (1) Schizoaffective disorder, bipolar type: Status: Acute (2) Methamphetamine dependence: Status: Chronic Additional A&P Information Patient is a 46-year-old, white male, well known to this system with a long history of psychosis, some past cannabis use, with no current drug screen obtained, with history of long hospitalizations secondary to being off of medication and/or sometimes concerns for active addiction, but many times just purely psychotic secondary to his organic disease, who presents open to taking some medication but likely needing a larger intervention to get him well again. RECOMMENDATION AND PLAN: 1. Continue current medication. 2. Encourage individual, group, and milieu therapy. 3. Continue q-15 minute checks for safety. 4. On 21-day hold and has received the first 2 loading doses of Invega Sustenna.. Involuntary Hold Information 96 Hour Hold: 96 Hour Involuntary Admission: Yes 96 Hour Hold Ending Date: 04/21/20 96 Hour Hold Ending Time: 21:49 Attestations NPU Medical Necessity Statement*: Inpatient hospitalization is medically necessary and the clinically appropriate intervention, at this time. We will monitor medications and make changes as indicated. Likely length of stay is 2 to 4 days. Coding Level of Care Code Acute Home Improvement Contractor for Brian Beltran Diagnoses Schizoaffective disorder, bipolar type F25.0 Methamphetamine dependence F15.20
[2021-07-04] MEDS: quetiapine 300 mg Tablet PO (21:00)
[2021-07-04 22:00] VITALS: RESP 14
--- NOTE | 2021-07-04 22:47 | PC.NURSE ---
pt refused vitals/respirations were observed
[2021-07-05] MEDS: nicotine 2 mg Gum BUCCAL ×4 (04:08→19:14)
[2021-07-05 06:00] VITALS: RESP 15
--- NOTE | 2021-07-05 07:00 | PC.NURSE ---
pt refused vitals/respirations were observed
[2021-07-05] MEDS: divalproex ER 500 mg Tablet (24H) PO (07:40)
[2021-07-05 14:00] VITALS: RESP 20
--- NOTE | 2021-07-05 15:25 | P.PN_ITS ---
Subjective NPU Subjective: Interval history: The patient says he is doing pretty well today. He denies auditory or visual hallucinations. He does not spontaneously talk about any delusional material. Instead, he is focused on finding a way to get his clothing washed prior to his discharge. No suicidal or homicidal ideation. No side effects from medication. Mental Status Exam MSE Comments: This is a overweight but well-developed white male in hospital scrubs with adequate grooming and adequate eye contact. More engaged in reality based conversation. No abnormal movements or tics noted. Cooperative with exam. In no acute distress. Speech was at a normal rate and volume. Mood reported as good, affect pleasant and calm. Thought process is fairly well organized. Thought content: Patient denies suicidal or homicidal ideations, there are no paranoid or hyper mosque delusions noted. He denies any auditory or visual hallucinations and is not internally preoccupied, nor does he respond to internal stimulus. Attention and concentration are improving and memory is unreliable but none were formally tested. Insight, judgment, and impulse control are all fair and improving. Vitals/I&O/Wt Last Vital Signs Temp 98.9 F 07/02/21 06:00 Pulse 85 07/02/21 06:00 Resp 18 07/05/21 20:09 BP 127/78 06/27/21 06:00 Pulse Ox 99 07/02/21 06:00 Data NPU : 06/19/21 08:07 06/19/21 08:07 A&P Assessment and plan (1) Schizoaffective disorder, bipolar type: Status: Acute (2) Methamphetamine dependence: Status: Chronic Additional A&P Information Patient is a 46-year-old, white male, well known to this system with a long history of psychosis, some past cannabis use, with no current drug screen obtained, with history of long hospitalizations secondary to being off of medication and/or sometimes concerns for active addiction, but many times just purely psychotic secondary to his organic disease, who presents open to taking some medication but likely needing a larger intervention to get him well again. RECOMMENDATION AND PLAN: 1. Continue current medication. 2. Encourage individual, group, and milieu therapy. 3. Continue q-15 minute checks for safety. 4. On 21-day hold and has received the first 2 loading doses of Invega Sustenna.. Involuntary Hold Information 96 Hour Hold: 96 Hour Involuntary Admission: Yes 96 Hour Hold Ending Date: 04/21/20 96 Hour Hold Ending Time: 21:49 Attestations NPU Medical Necessity Statement*: Inpatient hospitalization is medically necessary and the clinically appropriate intervention, at this time. We will monitor medications and make changes as indicated. Likely length of stay is 1 to 2 days. Coding Level of Care Code Acute Billing Associate for Brian Arriolad Diagnoses Schizoaffective disorder, bipolar type F25.0 Methamphetamine dependence F15.20
[2021-07-05] MEDS: acetaminophen 325 mg Tablet 650 MG PO (19:35)
[2021-07-05 20:09] VITALS: RESP 18
[2021-07-05] MEDS: quetiapine 300 mg Tablet PO (21:35)
[2021-07-06] MEDS: nicotine 2 mg Gum BUCCAL ×2 (03:14→08:38)
[2021-07-06 06:00] VITALS: BP 127/78; PULSE 85; RESP 17; TEMP 37.2; O2SAT 99
[2021-07-06] MEDS: divalproex ER 500 mg Tablet (24H) PO (08:37)
--- NOTE | 2021-07-06 09:15 | DCPLANNER ---
IMM completed with pt on 07/06/21 @ 0911. Pt is currently on 21 Day hold and could be released at any time.
[2021-07-06 12:50] VITALS: BP 127/78; PULSE 85; RESP 17; TEMP 37.2; O2SAT 99
--- NOTE | 2021-07-06 13:20 | P.DS_ITS ---
Diagnoses at Discharge Discharge Diagnosis (1) Schizoaffective disorder, bipolar type: Status: Chronic (2) Methamphetamine dependence: Status: Chronic Reason for Visit Reason for Visit: PSYCH EVAL Brief History: Paul Rhodes is a 46 year old male who presented to the emergency department with the following report: Chief Complaint: Psychiatric Symptoms Stated Complaint: PSYCH EVAL Time Seen by Provider: 06/18/21 15:49 History of Present Illness: HPI Narrative: 46-year-old male with a history of bipolar disorder is normally on a number of medications antipsychotics evidently stopped taking all of his medications he is having delusions of grandeur. In the past he has been suicidal but there is no reports of suicidal ideation and point. Family called EMS and he was brought here. MD complaint: suicidal ideation and altered mental status Onset (ago): day(s) Duration: constant History of same: Yes Relieving factors: none Exacerbating factors: none Context: not taking psychiatric medications Associated psychiatric symptoms: racing thoughts, auditory hallucinations, visual hallucinations and delusions Associated symptoms: Reports auditory hallucinations, visual hallucinations, delusions and racing thoughts Treatments prior to arrival: none. He was admitted to the neuropsychiatric unit for definitive treatment of those issues. Today, he presents known to this resume writer from previous hospitalizations appearing as he generally does at the beginning of those hospitalizations. Paul presents floridly psychotic, pacing the hallways with ranting and talking to himself. There are times that he can be seen moving his right hand in a puppet motion, as if his hand is speaking to him, and that he turns and listens to what his hand says, and then responds back on many different topics. He endorses during this time working for the [employer], the [employer], the [employer], and then goes on rants about what each of these organizations do. He also continued with significant religiously driven banter about Alpesh and God, and him being an arc higinio, and him not being able to be kept in this building because will intervene. At one point, he did acknowledge that he had stopped taking his medication because he is homeless now, but he could not explain what happened that led him to being homeless. He identified that Seroquel and Depakote were medications that he takes, and he would take 300 mg of Seroquel and 500 mg of Depakote. He then went on a rant about those medications being mixed and faked by doctors, and that he would know when he tasted the medication if we had adulterated it in any way or used fake medication, and then he used his hand to puppet that God told him that if we put the fake stuff in his body, he would intervene and make it the real Depakote. He then said that we could start the medication. As per previous hospitalizations, he was very racially driven and spent some time discussing the fact that he was not racist, but then bringing attention to this resume writer being and that he likes black people, just other people do not like black people. He was unable to stay on task to answer previous questions, but an excerpt from his last hospitalization is included for context. It is noteworthy that he has never been able to recover psychiatrically without a 21-day hold, and long acting injectable, to get him to a place where he can leave the hospital functionally. Hospital Course Hospital Course The patient was admitted to the neuropsychiatric unit for definitive treatment of these issues. On the unit he slowly acclimated to the individual, group and milieu therapies. He was restarted on Invega and given the first two loading doses of Invega Sustenna. He has floridly psychotic symptoms initially which slowly resolved with the medication being restarted. He was modestly receptive to treatment team recommendations and showed good improvement and was able to contract for safety prior to discharge. During the hospitalization, patient had routine laboratory studies which were within normal limits except for few outliers. Additionally there was a general medical evaluation which was also within normal limits and revealed no new acute processes. Discharge Summary: At the time of discharge, psychosis and lethality were denied. Mood and anxiety were well managed. Patient endorsed a plan to avoid all drugs of abuse and follow-up with the aftercare recommendations of the treatment team. Patient was evaluated and deemed to be absent credible lethality, and had achieved the maximum benefit from an inpatient hospitalization, so was discharged. Involuntary Hold Information 96 Hour Hold: 96 Hour Involuntary Admission: Yes 96 Hour Hold Ending Date: 04/21/20 96 Hour Hold Ending Time: 21:49 Mental Status Exam MSE Comments: The patient made good eye contact and was cooperative and open to the exam. No psychomotor agitation or retardation. Speech was had a regular rate and rhythm without pressure. Alert and oriented to person, place, time, and situation. Attention and concentration were intact to exam Memory was fairly good to exam. Mood is improved without depression and anxiety. Affect is brighter. Thought process: Logical and goal directed. No racing thoughts or flight of ideas. Thought content: Denies auditory and visual hallucinations. There are no delusions noted. No suicidal or homicidal ideation. Has future-oriented goals. Insight and judgment are improved and adequate. Discharge Data Vitals: Last Vital Signs Temp 98.9 F 07/06/21 12:50 Pulse 85 07/06/21 12:50 Resp 17 07/06/21 12:50 BP 127/78 07/06/21 12:50 Pulse Ox 99 07/06/21 12:50 Discharge Plan Discharge Patient Disposition: Home Condition: Stable Prescriptions: Continued quetiapine 300 mg tablet 300 mg PO BEDTIME 30 Days Qty: 30 RF: 0 Changed divalproex 500 mg tablet extended release 24 hr 500 mg PO BEDTIME 30 Days Qty: 30 RF: 0 Discharge Orders: Discharge Order (Routine); Ordered 07/06/21 Ordered By: Charlie Huang Discharge Diet: Usual diet Discharge Activity: Resume usual activity Patient Instructions: Opioid Safety Discharge Attestations NPU Time Spent in Discharge Care*: less than 30 min Specific Discharge Activities: Specific discharge activities: educating patient, discussing with comp field case manager/social workers/dc planners, documenting/other paperwork and evaluating patient/reviewing data Status at Discharge: Cognitive status at discharge: cognitively intact , Behavioral status at discharge: cooperative and can be uncooperative , Functional status at discharge: independent ambulation Overall status at discharge: patient is back to baseline Coding Level of Care Code Acute Chg DC note Diagnoses Schizoaffective disorder, bipolar type F25.0 Methamphetamine dependence F15.20
== END 2021-07-06 14:07 | disposition home or self-care (01) | DRG 885 ==
LOC: ER 16:27 → NP 16:59
PROVIDERS: Student in an Organized Health Care Education/Training Program; Admitting Provider Psychiatry & Neurology Psychiatry; Emergency Provider Family Medicine; Visit Provider Psychiatry & Neurology Child & Adolescent Psychiatry
DX: F25.0 Schizoaffective disorder, bipolar type (principal); F15.20 Other stimulant dependence, uncomplicated
CPT/HCPCS: 36415; 80053; 80306; 80307; 85025; 96372; 99285; J2060

== ENCOUNTER 2021-07-29 21:43 | Inpatient (IN) | payer MEDICARE, MEDICAID, SELFPAY ==
[2021-07-29 21:51] VITALS: BP 137/89; PULSE 93; RESP 18; TEMP 36.6; O2SAT 97; BMI 26.4
--- NOTE | 2021-07-29 23:59 | ED_ITS ---
Documented by User: KEITH Yung 07/30/21 00:08 HPI - Psych General: Chief Complaint: Psychiatric Symptoms Stated Complaint: PSYCH PATIENT Time Seen by Provider: 07/29/21 23:18 History of Present Illness: HPI Narrative: Patient states he is unaccompanied living at his friend's trailer. He says he is having hard time sleeping he would like to be admitted to the stress unit. He had obstruction in 3 weeks ago. MD complaint: other (Insomnia) Onset (ago): year(s) Duration: constant History of same: Yes Relieving factors: none Context: new medication(s) Associated psychiatric symptoms: other (Schizophrenic) Associated symptoms: Deny depression, homicidal ideation or suicidal ideation Review of Systems Const: Denies: fever(s), chills or body aches Eyes: Denies: change in vision or blurry vision ENMT: Denies: throat pain or nasal congestion Card: Denies: chest pain or dyspnea on exertion Resp: Denies: dyspnea, productive cough or non-productive cough GI: Denies: abdominal pain, nausea or vomiting : Denies: difficulty urinating Musc: Denies: extremity pain Skin/Breast: Denies: rash Neuro: Denies: headache(s) Psych: Reports: sleeping less; Denies: anxiety, depression, suicidal ideation or homicidal ideation Dawit/Lymph: Denies: easy bruising PFSH ED PFSH: Social History Smoking and tobacco status: current every day smoker Physical Exam Const: COMMON NORMALS: no acute distress, average body habitus and patient oriented x3 HENMT: COMMON NORMALS: normocephalic HEAD & SCALP: normal to inspection and normocephalic FACE & SINUS: normal facial exam Eye: COMMON NORMALS: conjunctivae normal GENERAL EYE: appearance normal, both eyes and all related structures CONJUNCTIVA: Yes conjunctivae normal Neck/C-Spine: COMMON NORMALS: no JVD Chest: COMMONS NORMALS: normal inspection of the chest Resp: COMMON NORMALS: normal respiratory effort Cardio: COMMON NORMALS: no JVD, regular rate and regular rhythm RATE: regular rate RHYTHM: regular rhythm GI: INSPECTION: Yes normal to inspection Extremity: COMMON NORMALS: normal to inspection and full ROM Neuro: COMMON NORMALS: patient oriented x3 Psych: COMMON NORMALS: mental status grossly normal, cooperative and speech normal APPEARANCE: Yes grossly normal ATTITUDE: Yes calm SPEECH: Yes normal speech Course Vital Signs: Vital signs: Vital Signs Temperature 98 F 07/29/21 21:51 Pulse Rate 90 07/30/21 00:59 Respiratory Rate 16 07/30/21 00:59 Blood Pressure 138/90 07/30/21 00:59 Pulse Oximetry 96 07/30/21 00:59 MDM - Psych MDM Narrative: Medical decision making narrative: I discussed case with Dr. Huang. Dr. Huang asked that we place patient in observation status in the inpatient psych unit. Discharge Plan Discharge Patient Disposition: Placed in Observation Admit Provider: Charlie Huang Clinical Impression: Chronic schizophrenia Insomnia Qualifiers: Insomnia type: due to other mental disorder Qualified Code(s): F51.05 - Insomnia due to other mental disorder Coding Level of Care Code ED Pottery Decoration Designer for Chg Fwd Exam Comprehensive Documented by User: Marv Diaz DO 07/30/21 01:11 HPI - Psych General: Chief Complaint: Psychiatric Symptoms Stated Complaint: PSYCH PATIENT Time Seen by Provider: 07/29/21 23:18 PFSH ED PFSH: Social History Smoking and tobacco status: current every day smoker Course Vital Signs: Vital signs: Vital Signs Temperature 98 F 07/29/21 21:51 Pulse Rate 90 07/30/21 00:59 Respiratory Rate 16 07/30/21 00:59 Blood Pressure 138/90 07/30/21 00:59 Pulse Oximetry 96 07/30/21 00:59 MDM - Psych MDM Narrative: Medical decision making narrative: This patient was originally seen by KEITH Rodriguez. I agree with his history, evaluation, and treatment. Discharge Plan Discharge Patient Disposition: Placed in Observation Admit Provider: Charlie Huang Clinical Impression: Chronic schizophrenia Insomnia Qualifiers: Insomnia type: due to other mental disorder Qualified Code(s): F51.05 - Insomni a due to other mental disorder Coding Level of Care Code ED Pottery Decoration Designer for Chg Fwd Exam Comprehensive
[2021-07-30 00:25] LABS: Basophils % 0.8 %; Eosinophils # 0.1 10^3/uL (0.0-0.8); Eosinophils % 1.2 %; Hematocrit 41.4 % (42.0-52.0); Hemoglobin 13.5 g/dL (11.7-16.6); Lymphocytes # 2.2 10^3/uL (0.8-4.8); Lymphocytes % 43.8 %; Mean Corpuscular HGB Conc 32.6 g/dL (30.0-36.0); Mean Corpuscular Hemoglobin 31.3 pg (28.0-34.0); Mean Corpuscular Volume 95.8 fl (80-94); Mean Platelet Volume 9.5 fL (7.4-10.4); Monocytes # 0.6 10^3/uL (0.2-0.9); Monocytes % 11.1 %; Neutrophils # 2.13 10^3/uL (1.8-7.7); Neutrophils % 42.9 %; Nucleated Red Blood Cells % 0 %; Platelet Count 246 10^3/cmm (130-400); Red Blood Count 4.32 10^6/uL (4.1-5.3); Red Cell Distribution Width 12.9 % (12.1-15.1)
[2021-07-30 00:45] LABS: Alanine Aminotransferase 6 U/L (0-41); Alkaline Phosphatase 56 IU/L (40-130); Anion Gap 11.8 (5-19); Aspartate Amino Transferase 9 U/L (0-40); Blood Urea Nitrogen 11 mg/dL (6-20); Calcium 9.4 mg/dL (8.5-10.5); Carbon Dioxide 29 mmol/L (22-29); Chloride 104 mmol/L (98-107); Globulin 2.4 g/dL (1.3-4.6); Glomerular Filtration Rate 230.6 mL/min (90-130); Glucose 104 mg/dL (65-115); Osmolality Calculated 292 mOsm/kg (285-295); Potassium 3.8 mmol/L (3.5-5.1); Sodium 141 mmol/L (136-145); Total Bilirubin 0.4 mg/dL (0.15-1.2); Total Protein 6.4 g/dL (6.6-8.7)
[2021-07-30 00:48] LABS: Acetaminophen < 5.0 ug/mL (10-30); Salicylate < 0.3 mg/dL (3-10)
[2021-07-30 00:59] VITALS: BP 138/90; PULSE 90; RESP 16; O2SAT 96
[2021-07-30 01:04] LABS: Valproic Acid Level 25.2 ug/mL (50-100)
[2021-07-30 01:18] VITALS: BP 138/90; PULSE 90; RESP 16; TEMP 36.6; O2SAT 96
[2021-07-30 06:00] VITALS: BP 138/90; PULSE 90; RESP 16; TEMP 36.6
[2021-07-30 06:42] VITALS: RESP 16
--- NOTE | 2021-07-30 06:42 | PC.NURSE ---
Patient refused vitals. Respirations were taken.
[2021-07-30 14:00] VITALS: BP 132/88; PULSE 105; RESP 17; TEMP 36.5; O2SAT 98
--- NOTE | 2021-07-30 14:08 | PM.NHP ---
Providers/Chief Complaint Admitting Physician: Charlie Huang MD Chief Complaint: PSYCH PATIENT HPI NPU History of Present Illness Paul Rhodes is a 46 year old male with previous diagnosis of schizoaffective disorder, bipolar type often exacerbated by methamphetamine abuse, who is admitted because he felt he needed to flee his home because of paranoid delusions that he was being watched there. The patient says he often hears a car pull up at night onto the property where he is living, hears the door closed, and sometimes hears people whispering, as if they do not want to be heard. He says, there is someone out there watching me. I feel the law is setting me up. The law is pushing me to try to do drugs. He repeats these types of phrases over and over again, even after I repeated back to him and he tells me that he feels that I have understood what he is saying. He works himself up into tearful fear that bad things are going to happen to him. He says these things are really happening and there is no chance that they could be part of his schizoaffective disorder. He denies hearing voices or seeing things that are not there. He denies wanting to kill himself. However he does say, if I cannot live in peace, I want to . He has some additional delusions regarding his medication. He says that, God told me not to take the Seroquel, because it would make him too sleepy and the people who were watching his trailer would open get him. He says that Invega, takes away my soul. He is very adamant about not taking Invega, but does say he could take Seroquel here, because the people will not get him here. At another point, he talks about the [place] doctrine, which says that if someone comes into your house you can kill them. The patient says he has been drinking 1 can of beer at a single session, and has used marijuana and methamphetamines. He also smokes cigarettes. The patient says he has had too many psychiatric hospitalizations to be able to count them. He says he receives follow-up psychiatric treatment through a clinic in [place], [place]. He does report manic episodes in which she has a lot of energy, and can stay up for 5 nights in a row without needing sleep. He denies euphoric periods. Family history: Patient says that his paternal aunt had schizophrenia. Psychosocial history: He is on disability and has been living in a trailer. Legal history: No legal difficulties. Records indicate that at one point he had been assigned a guardian, but that order had been rescinded. The previous admission note from 06/19/2021 states Today, he presents known to this insurance writer from previous hospitalizations appearing as he generally does at the beginning of those hospitalizations. Paul presents floridly psychotic, pacing the hallways with ranting and talking to himself. There are times that he can be seen moving his right hand in a puppet motion, as if his hand is speaking to him, and that he turns and listens to what his hand says, and then responds back on many different topics. 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 He also continued with significant religiously driven banter about Alpesh and God, and him being an arc higinio, and him not being able to be kept in this building because will intervene. At one point, he did acknowledge that he had stopped taking his medication because he is homeless now, but he could not explain what happened that led him to being homeless. He identified that Seroquel and Depakote were medications that he takes, and he would take 300 mg of Seroquel and 500 mg of Depakote. He then went on a rant about those medications being mixed and faked by doctors, and that he would know when he tasted the medication if we had adulterated it in any way or used fake medication, and then he used his hand to puppet that God told him that if we put the fake stuff in his body, he would intervene and make it the real Depakote. He then said that we could start the medication. As per previous hospitalizations, he was very racially driven and spent some time discussing the fact that he was not racist, but then bringing attention to this insurance writer being and that he likes black people, just other people do not like black people. He was unable to stay on task to answer previous questions, but an excerpt from his last hospitalization is included for context. It is noteworthy that he has never been able to recover psychiatrically without a 21-day hold, and long acting injectable, to get him to a place where he can leave the hospital functionally. Meds NPU Home Medications Medication Instructions Recorded Confirmed Last Taken Type divalproex 500 mg PO BEDTIME 30 Days #30 tab 07/06/21 07/30/21 06/18/21 Rx quetiapine 300 mg PO BEDTIME 30 Days #30 tab 07/06/21 07/30/21 06/17/21 Rx Allergies Allergy/AdvReac Type Severity Reaction Status Date / Time Penicillins Allergy ALGY-Hives Verified 07/29/21 21:55 PFSH NPU PFSH: Social History Smoking and tobacco status: current every day smoker Mental Status Exam MSE Comments: I met with the patient in his room, and he was dressed in hospital scrubs and sloppily groomed. He was upset and tearful and at times had difficulty participating in the interview. Poor eye contact. Some psychomotor agitation Speech is rapid and moderately pressured. It took effort and time to interrupt him Alert, oriented to person, place, time, and situation Attention and concentration were intact to exam Memory is adequate for the interview Mood is depressed. Affect is tearful and agitated. Thought process is perseverative. Thought content: He has paranoid delusions that have made him leave his house. Denies auditory and visual hallucinations. Denies suicidal ideation or homicidal ideation. Insight and judgment are impaired. Impulse control is impaired as well. Vitals/I&O/Wt Last Vital Signs Temp 97.7 F 07/30/21 14:00 Pulse 105 H 07/30/21 14:00 Resp 17 07/30/21 14:00 BP 132/88 07/30/21 14:00 Pulse Ox 98 07/30/21 14:00 Weight last 48 hrs Weight 90.718 kg Data NPU : 07/30/21 00:19 07/30/21 00:19 A&P Assessment and plan (1) Schizoaffective disorder, bipolar type: Status: Chronic (2) Methamphetamine dependence: Status: Chronic Additional A&P Information Patient is a 46-year-old, white male, well known to this system, with a long history of intermittent paranoid psychosis, with past methamphetamine and cannabis use, admitted due to paranoid delusions which caused him to flee his home. He has a history of long hospitalizations secondary to being off of medication, sometimes exacerbated by methamphetamine use. He wants to take Depakote and Seroquel, but is adamantly refusing Invega Sustenna. Records indicate that he needs a long-acting injectable antipsychotic in order to stay psychosis free. RECOMMENDATION AND PLAN: 1. Continue current medication --Depakote ER 500 mg daily and Seroquel IR 300 mg at bedtime. 2. Encourage individual, group, and milieu therapy. 3. Continue q-15 minute checks for safety. 4. We need to reconsider whether this patient requires a guardian, after the previous guardian order was rescinded. Involuntary Hold Information 96 Hour Hold: 96 Hour Involuntary Admission: Yes Attestations NPU Medical Necessity Statement*: Psychiatric hospitalization is medically necessary to prevent access to lethal means, to reevaluate medication, and to coordinate a safe discharge. Patient will be in the hospital for over 2 midnights. Likely length of stay is 5 to 7 days. Coding Level of Care Code Acute Creative Services Specialist for Brian Beltran Diagnoses Schizoaffective disorder, bipolar type F25.0 Methamphetamine dependence F15.20
[2021-07-30] MEDS: quetiapine 300 mg Tablet PO (21:57)
[2021-07-30] MEDS: divalproex ER 500 mg Tablet (24H) PO (21:57)
[2021-07-30 22:00] VITALS: RESP 16
[2021-07-31 06:00] VITALS: RESP 15
--- NOTE | 2021-07-31 12:18 | P.PN_ITS ---
Subjective NPU Subjective: Interval history: Patient is in a better mood today. He says he talked to his landlord about his fears that someone was going to break into his house and harm him. His landlord has a shed right near his trailer. She thinks that people may be wanting to steal things out of the shed, and that is why he is hearing a car pull up at night. This thought has eased his mind greatly, and he is not nearly so worried that someone is going to hurt him. We talked some about his schizoaffective disorder. He feels he has primarily a bipolar disorder. The psychosis is caused by drug use. This is a possibility certainly. He wants to decrease Seroquel at bedtime from 300 mg to 150 mg, because the 300 mg makes him too groggy in the morning. I am willing to give this a try. He denies any other side effects from medication. Mental Status Exam MSE Comments: I met with the patient in his room, and he was dressed in hospital scrubs and more neatly groomed today. He was in a much better space and more able to cooperate. Improved eye contact. No psychomotor agitation or retardation Speech is at a regular rate and rhythm without pressure. Alert, oriented to person, place, time, and situation Attention and concentration were intact to exam Memory is adequate for the interview Mood is improved. Affect is brighter. Thought process is logical and goal-directed. Thought content: Paranoia has much improved. Denies auditory and visual hallucinations. Denies suicidal ideation or homicidal ideation. Insight and judgment are proved. Impulse control is improved as well. Vitals/I&O/Wt Last Vital Signs Temp 97.7 F 07/30/21 14:00 Pulse 105 H 07/30/21 14:00 Resp 15 07/31/21 06:00 BP 132/88 07/30/21 14:00 Pulse Ox 98 07/30/21 14:00 Weight last 48 hrs Weight 90.718 kg Weight 90.718 kg Data NPU : 07/30/21 00:19 07/30/21 00:19 A&P Assessment and plan (1) Insomnia: Status: Acute Qualifiers: Insomnia type: due to other mental disorder Qualified Code(s): F51.05 - Insomnia due to other mental disorder; F99 - Mental disorder, not otherwise specified (2) Schizoaffective disorder, bipolar type: Status: Chronic (3) Methamphetamine dependence: Status: Chronic Additional A&P Information Patient is a 46-year-old, white male, well known to this system, with a long history of intermittent paranoid psychosis, with past methamphetamine and cannabis use, admitted due to paranoid delusions which caused him to flee his home. He has a history of long hospitalizations secondary to being off of medication, sometimes exacerbated by methamphetamine use. He wants to take Depakote and Seroquel, but is adamantly refusing Invega Sustenna. Records indicate that he needs a long-acting injectable antipsychotic in order to stay psychosis free. UPDATE: Patient's paranoia seems to have much improved after he learned that his landlord suspects people trying to steal things from a shed that is on the property near his trailer, rather than trying to break into his trailer to harm him. It could be that his psychosis has continued to be in a dormant state, either because he is received injectable Invega or because he has been abstaining from substance use. Hopefully it is the second situation. RECOMMENDATION AND PLAN: 1. Continue current medication --Depakote ER 500 mg daily. We will reduce Seroquel IR from 300 mg at bedtime to 150 mg. 2. Encourage individual, group, and milieu therapy. 3. Continue q-15 minute checks for safety. 4. We need to reconsider whether this patient requires a guardian, after the previous guardian order was rescinded. Involuntary Hold Information 96 Hour Hold: 96 Hour Involuntary Admission: Yes Attestations NPU Medical Necessity Statement*: Psychiatric hospitalization is medically necessary to prevent access to lethal means, to reevaluate medication, and to coordinate a safe discharge. Patient will be in the hospital for over 2 midnights. Likely length of stay is 1-3 days. Coding Level of Care Code Acute Developer [employer] for Brian Fwd Diagnoses Insomnia F51.05; F99 Insomnia type: due to other mental disorder Schizoaffective disorder, bipolar type F25.0 Methamphetamine dependence F15.20
[2021-07-31 14:00] VITALS: RESP 18
[2021-07-31 20:30] VITALS: BP 130/86; PULSE 77; RESP 20; TEMP 36.5; O2SAT 98
[2021-07-31] MEDS: divalproex ER 500 mg Tablet (24H) PO (20:50)
[2021-07-31] MEDS: quetiapine 300 mg Tablet 150 MG PO (20:51)
[2021-07-31] MEDS: nicotine 2 mg Gum BUCCAL (21:06)
--- NOTE | 2021-07-31 21:57 | PC.NURSE ---
Upon assessment patient in his room. Alert/oriented x4, good eye contact and pleasant. Pt denied any complaints other than rating depression /. He requested a piece of Yogi gum. He denies any SI/HI, hallucinations this shift. Will continue to monitor and follow plan of care. Q 15 min safety checks per protocol.
[2021-08-01 06:00] VITALS: BP 125/92; PULSE 93; RESP 20; TEMP 36.6; O2SAT 97
[2021-08-01] MEDS: nicotine 2 mg Gum BUCCAL ×2 (07:49→10:24)
--- NOTE | 2021-08-01 11:18 | P.DS_ITS ---
Diagnoses at Discharge Discharge Diagnosis (1) Insomnia: Status: Resolved Qualifiers: Insomnia type: due to other mental disorder Qualified Code(s): F51.05 - Insomnia due to other mental disorder; F99 - Mental disorder, not otherwise specified (2) Schizoaffective disorder, bipolar type: Status: Chronic (3) Methamphetamine dependence: Status: Chronic Reason for Visit Reason for Visit: PSYCH PATIENT Brief History: Paul Rhodes is a 46 year old male with previous diagnosis of schizoaffective disorder, bipolar type often exacerbated by methamphetamine abuse, who is admitted because he felt he needed to flee his home because of paranoid delusions that he was being watched there. The patient says he often hears a car pull up at night onto the property where he is living, hears the door closed, and sometimes hears people whispering, as if they do not want to be heard. He says, there is someone out there watching me. I feel the law is setting me up. The law is pushing me to try to do drugs. He repeats these types of phrases over and over again, even after I repeated back to him and he tells me that he feels that I have understood what he is saying. He works himself up into tearful fear that bad things are going to happen to him. He says these things are really happening and there is no chance that they could be part of his schizoaffective disorder. He denies hearing voices or seeing things that are not there. He denies wanting to kill himself. However he does say, if I cannot live in peace, I want to . He has some additional delusions regarding his medication. He says that, God told me not to take the Seroquel, because it would make him too sleepy and the people who were watching his trailer would open get him. He says that Invega, takes away my soul. He is very adamant about not taking Invega, but does say he could take Seroquel here, because the people will not get him here. At another point, he talks about the [place] doctrine, which says that if someone comes into your house you can kill them. The patient says he has been drinking 1 can of beer at a single session, and has used marijuana and methamphetamines. He also smokes cigarettes. The patient says he has had too many psychiatric hospitalizations to be able to count them. He says he receives follow-up psychiatric treatment through a clinic in [place], [place]. He does report manic episodes in which she has a lot of energy, and can stay up for 5 nights in a row without needing sleep. He denies euphoric periods. Family history: Patient says that his paternal aunt had schizophrenia. Psychosocial history: He is on disability and has been living in a trailer. Legal history: No legal difficulties. Records indicate that at one point he had been assigned a guardian, but that order had been rescinded. The previous admission note from 06/19/2021 states Today, he presents known to this mortgage underwriter from previous hospitalizations appearing as he generally does at the beginning of those hospitalizations. Paul presents floridly psychotic, pacing the hallways with ranting and talking to himself. There are times that he can be seen moving his right hand in a puppet motion, as if his hand is speaking to him, and that he turns and listens to what his hand says, and then responds back on many different topics. He endorses during this time working for the [employer], the [employer], the [employer], and then goes on rants about what each of these organizations do. He also continued with significant religiously driven banter about Alpesh and God, and him being an arc higinio, and him not being able to be kept in this building because will intervene. At one point, he did acknowledge that he had stopped taking his medication because he is homeless now, but he could not explain what happened that led him to being homeless. He identified that Seroquel and Depakote were medications that he takes, and he would take 300 mg of Seroquel and 500 mg of Depakote. He then went on a rant about those medications being mixed and faked by doctors, and that he would know when he tasted the medication if we had adulterated it in any way or used fake medication, and then he used his hand to puppet that God told him that if we put the fake stuff in his body, he would intervene and make it the real Depakote. He then said that we could start the medication. As per previous hospitalizations, he was very racially driven and spent some time discussing the fact that he was not racist, but then bringing attention to this mortgage underwriter being and that he likes black people, just other people do not like black people. He was unable to stay on task to answer previous questions, but an excerpt from his last hospitalization is included for context. It is noteworthy that he has never been able to recover psychiatrically without a 21-day hold, and long acting injectable, to get him to a place where he can leave the hospital functionally. [facility] in [facility] better [facility] today. We talked some about his schizoaffective disorder. He feels he has primarily a bipolar disorder. The psychosis is caused by drug use. This is a possibility certainly. He wants to decrease Seroquel at bedtime from 300 mg to 150 mg, because the 300 mg makes him too groggy in the morning. I am willing to give this a try. He denies any other side effects from medication. The patient was admitted to the neuropsychiatric unit for definitive treatment of these issues. On the unit he easily acclimated to the individual, group and milieu therapies as he has been here before recently. There were some mild psychotic symptoms present initially which resolved. He talked to his landlord about his fears that someone was going to break into his house and harm him. His landlord has a shed right near his trailer. She thinks that people may be wanting to steal things out of the shed, and that is why he is hearing a car pull up at night. This thought eased his mind greatly, and he was not nearly so worried that someone is going to hurt him. Seroquel was decreased from 300 mg at bedtime to 150 mg at bedtime. He feels this is an adequate dose for him. He was receptive to treatment team recommendations and showed modest improvement and was able to contract for safety prior to discharge. During the hospitalization, patient had routine laboratory studies which were within normal limits except for few outliers. Additionally there was a general medical evaluation which was also within normal limits and revealed no new acute processes. Discharge Summary: At the time of discharge, psychosis and lethality were denied. Mood and anxiety were well managed. Patient endorsed a plan to avoid all drugs of abuse and follow-up with the aftercare recommendations of the treatment team. Patient was evaluated and deemed to be absent credible lethality, and had achieved the maximum benefit from an inpatient hospitalization, so was discharged. Involuntary Hold Information 96 Hour Hold: 96 Hour Involuntary Admission: Yes Mental Status Exam MSE Comments: I met with the patient in his room, and he was dressed in hospital scrubs and more neatly groomed today. He was in a much better space and more able to cooperate. Improved eye contact. No psychomotor agitation or retardation Speech is at a regular rate and rhythm without pressure. Alert, oriented to person, place, time, and situation Attention and concentration were intact to exam Memory is adequate for the interview Mood is improved. Affect is brighter. Thought process is logical and goal-directed. Thought content: Paranoia has much improved. Denies auditory and visual hallucinations. Denies suicidal ideation or homicidal ideation. Insight and judgment are proved. Impulse control is improved as well. Discharge Data Vitals: Last Vital Signs Temp 97.9 F 08/01/21 06:00 Pulse 93 08/01/21 06:00 Resp 20 H 08/01/21 06:00 BP 125/92 08/01/21 06:00 Pulse Ox 97 08/01/21 06:00 Discharge Plan Discharge Patient Disposition: Home Condition: Stable Prescriptions: New quetiapine 300 mg Tablet 150 mg PO BEDTIME 30 Days Qty: 30 RF: 0 Continued divalproex 500 mg tablet extended release 24 hr 500 mg PO BEDTIME 30 Days Qty: 30 RF: 0 Discontinued quetiapine 300 mg tablet 300 mg PO BEDTIME 30 Days Qty: 30 RF: 0 Discharge Orders: Discharge Order (Routine); Ordered 08/01/21 Ordered By: Charlie Huang Discharge Diet: Usual diet Discharge Activity: Resume usual activity Patient Instructions: Quetiapine (By mouth) (Seroquel, Seroquel XR, Seroquel XR 14-Day..., Insomnia (ED), Opioid Safety Activity Restrictions/Additional Instructions: Continue take your medications as directed. Follow-up with your manager social to discuss other housing arrangements. Discharge Attestations NPU Time Spent in Discharge Care*: less than 30 min Specific Discharge Activities: Specific discharge activities: educating patient, discussing with case supervisor/social workers/dc planners, documenting/other paperwork and evaluating patient/reviewing data Status at Discharge: Cognitive status at discharge: cognitively intact , Behavioral status at discharge: cooperative and can be uncooperative , Functional status at discharge: independent ambulation Overall status at discharge: patient is back to baseline Coding Level of Care Code Acute Chg FW DC note Diagnoses Insomnia F51.05; F99 Insomnia type: due to other mental disorder Schizoaffective disorder, bipolar type F25.0 Methamphetamine dependence F15.20
[2021-08-01 11:50] VITALS: BP 125/92; PULSE 93; RESP 20; TEMP 36.6; O2SAT 97
--- NOTE | 2021-08-01 12:13 | PC.NURSE ---
Discharge plan discussed with the patient. Informed him of meds being delivered to bedside and patient checked off belongings. Patient survey filled out and patient verbalized understanding.
--- NOTE | 2021-08-01 12:28 | PC.NURSE ---
discharge med called into [facility] pharmacy, Depakote ER 500 mg po bedtime, #30 tabs no refills, spoke to Christiana
--- NOTE | 2021-08-01 17:54 | PC.RESP ---
Smoking Cessation information sent to patient.
== END 2021-08-01 13:54 | disposition home or self-care (01) | DRG 885 ==
LOC: ER 07-30 00:13 → NP 07-30 00:52
PROVIDERS: Admitting Provider Psychiatry & Neurology Child & Adolescent Psychiatry; Emergency Provider Nurse Practitioner Family; Visit Provider Psychiatry & Neurology Child & Adolescent Psychiatry
DX: F25.0 Schizoaffective disorder, bipolar type (principal); F15.20 Other stimulant dependence, uncomplicated; F17.210 Nicotine dependence, cigarettes, uncomplicated; F51.05 Insomnia due to other mental disorder; F12.90 Cannabis use, unspecified, uncomplicated
CPT/HCPCS: 36415; 80053; 80164; 80307; 85025; 97165; 99285; G0378

== ENCOUNTER 2021-09-08 04:21 | Inpatient (IN) | payer MEDICARE, MEDICAID, SELFPAY ==
[2021-09-08 04:05] VITALS: BP 155/102; PULSE 119; RESP 18; TEMP 36.4; O2SAT 98; BMI 26.4
--- NOTE | 2021-09-08 04:09 | ED.C_ITS ---
HPI - Psych General: Chief Complaint: Psychiatric Symptoms Stated Complaint: 'fears for life' Source: patient and EMS Mode of arrival: EMS Limitations: no limitations History of Present Illness: HPI Narrative: 46-year-old male has a history of schizophrenia and homelessness states that he has been having some depression he is also hearing voices. He supposed to take Depakote he states he has Depakote but he hasn't been taking it. Called EMS states he feels like he needs to be admitted for his paranoia he states he also has nowhere to go and is homeless currently. Denies any suicidality or homicidality. Review of Systems Const: Denies: fever(s), chills, body aches or change in appetite Eyes: Denies: blurry vision or eye discomfort ENMT: Denies: throat pain or dental pain Card: Denies: chest pain Resp: Denies: dyspnea GI: Denies: abdominal pain, nausea, vomiting or diarrhea : Denies: dysuria Musc: Denies: neck pain or back pain Skin/Breast: Denies: rash Neuro: Denies: headache(s) Psych: Reports: paranoia [place]/Lymph: Denies: easy bruising All/Imm: Denies: urticaria PFSH ED PFSH: Medical History (Updated 08/02/21 @ 00:01 by ) Chronic schizophrenia Social History Smoking and tobacco status: current every day smoker Physical Exam Const: COMMON NORMALS: no acute distress, patient oriented x3 and healthy appearing HENMT: COMMON NORMALS: normocephalic and atraumatic HEAD & SCALP: normocephalic and atraumatic Eye: COMMON NORMALS: Equal, round and reactive pupils present and EOMs intact bilaterally PUPIL: Yes Equal, round and reactive pupils present Neck/C-Spine: COMMON NORMALS: full ROM and supple Chest: COMMONS NORMALS: normal inspection of the chest and normal palpation of entire chest wall Resp: COMMON NORMALS: normal respiratory effort, No retractions, No use of accessory muscles and clear to auscultation bilaterally AUSCULTATION: clear to auscultation bilaterally Cardio: COMMON NORMALS: regular rate, regular rhythm and No murmurs present (Cardio) RATE: regular rate RHYTHM: regular rhythm GI: COMMON NORMALS: Normal to inspection, nondistended, normoactive bowel sounds present, Soft to palpation, non-tender and no masses PALPATION: Yes Soft to palpation Extremity: COMMON NORMALS: normal to inspection and full ROM Neuro: COMMON NORMALS: patient oriented x3, moves all extremities and no focal motor deficits Psych: COMMON NORMALS: mental status grossly normal, Normal thought process present and cooperative THOUGHT PROCESS: Normal thought process present Skin: COMMON NORMALS: no rashes or lesions noted and no wounds GENERAL SKIN EXAM: no rashes or lesions noted Course Vital Signs: Vital signs: Vital Signs Temperature 97.6 F 09/08/21 04:05 Pulse Rate 104 H 09/08/21 05:32 Respiratory Rate 18 09/08/21 05:32 Blood Pressure 147/97 09/08/21 05:32 Pulse Oximetry 98 09/08/21 05:32 MDM - Psych MDM Narrative: Medical decision making narrative: Patient presents here with paranoia voluntarily wants to be admitted to the psych unit he is not suicidal or homicidal spoke to psychiatrist patient is medically cleared will admit for observation under voluntary status. Lab Data: Labs: Lab Results 09/08/21 09/08/21 09/08/21 04:30 04:30 04:45 WBC 5.1 10^3/uL 10^3/ uL (4.0-10.0) RBC 4.63 10^6/uL 10^6 /uL (4.1-5.3) Hgb 14.4 g/dL g/dL (11.7-16.6) Hct 43.5 % % (42.0-52.0) MCV 94.0 fl fl (80-94) MCH 31.1 pg pg (28.0-34.0) MCHC 33.1 g/dL g/dL (30.0-36.0) RDW 12.4 % % (12.1-15.1) Plt Count 263 10^3/cmm 10^3 /cmm (130-400) MPV 9.8 fL fL (7.4-10.4) Neut % (Auto) 55.6 % % Lymph % (Auto) 32.2 % % [place] % (Auto) 10.4 % % Eos % (Auto) 0.8 % % Baso % (Auto) 0.6 % % Neut # (Auto) 2.85 10^3/uL 10^3 /uL (1.8-7.7) Lymph # (Auto) 1.7 10^3/uL 10^3/ uL (0.8-4.8) [place] # (Auto) 0.5 10^3/uL 10^3/ uL (0.2-0.9) Eos # (Auto) 0.0 10^3/uL 10^3/ uL (0.0-0.8) Baso # (Auto) 0.0 10^3/uL 10^3/ uL (0.0-0.1) Nucleated RBC % (a uto) 0 % % Nucleated RBCs # 0.0 /100WBC /100W BC Sodium 136 mmol/L mmol/L (136-145) Potassium 3.6 mmol/L mmol/L (3.5-5.1) Chloride 102 mmol/L mmol/L (98-107) Carbon Dioxide 22 mmol/L mmol/L (22-29) Anion Gap 15.6 (5-19) BUN 7 mg/dL mg/dL (6-20) Creatinine 0.5 mg/dL L mg/dL (0.7-1.2) GFR Calculation 178.2 mL/min H mL /min (90-130) Glucose 106 mg/dL mg/dL (65-115) Calculated Osmolal ity 280 mOsm/kg L mOs m/kg (285-295) Calcium 9.0 mg/dL mg/dL (8.5-10.5) Total Bilirubin 0.4 mg/dL mg/dL (0.15-1.2) AST 12 U/L U/L (0-40) ALT 9 U/L U/L (0-41) Alkaline Phosphata se 55 IU/L IU/L (40-130) Total Protein 6.6 g/dL g/dL (6.6-8.7) Albumin 4.3 g/dL g/dL (3.5-5.2) Globulin 2.3 g/dL g/dL (1.3-4.6) Salicylates < 0.3 mg/dL L mg/ dL (3-10) Urine Opiates Scre en Negative ng/mL ng /mL (Negative) Acetaminophen < 5.0 ug/mL L ug/ mL (10-30) Ur Barbiturates Sc reen Negative ng/mL ng /mL (Negative) Valproic Acid 14.0 ug/mL L ug/m L (50-100) Ur Phencyclidine S crn Negative ng/mL ng /mL (Negative) Ur Amphetamines Sc reen Negative ng/mL ng /mL (Negative) U Benzodiazepines Scrn Negative ng/mL ng /mL (Negative) Urine Cocaine Scre en Negative ng/mL ng /mL (Negative) U Marijuana (THC) Screen Positive ng/mL H ng/mL (Negative) Ethyl Alcohol < 10 mg/dL mg/dL (0-10) Discharge Plan Discharge Admit Provider: Jermaine Pederson Coding Level of Care Code ED Client Relations Specialist for [employer] Fwd Exam Comprehensive
[2021-09-08] MEDS: LORazepam 1 mg Tablet 2 MG PO (04:15)
[2021-09-08] MEDS: haloperidol 5 mg Tablet PO (04:15)
[2021-09-08 04:35] LABS: Basophils % 0.6 %; Eosinophils % 0.8 %; Hematocrit 43.5 % (42.0-52.0); Hemoglobin 14.4 g/dL (11.7-16.6); Lymphocytes # 1.7 10^3/uL (0.8-4.8); Lymphocytes % 32.2 %; Mean Corpuscular HGB Conc 33.1 g/dL (30.0-36.0); Mean Corpuscular Hemoglobin 31.1 pg (28.0-34.0); Mean Platelet Volume 9.8 fL (7.4-10.4); Monocytes # 0.5 10^3/uL (0.2-0.9); Monocytes % 10.4 %; Neutrophils # 2.85 10^3/uL (1.8-7.7); Neutrophils % 55.6 %; Nucleated Red Blood Cells % 0 %; Platelet Count 263 10^3/cmm (130-400); Red Blood Count 4.63 10^6/uL (4.1-5.3); Red Cell Distribution Width 12.4 % (12.1-15.1); White Blood Count 5.1 10^3/uL (4.0-10.0)
[2021-09-08 04:36] VITALS: BP 148/98; PULSE 102; RESP 18; O2SAT 99
[2021-09-08 05:07] LABS: Amphetamines Screen Urine Negative (Negative); Barbiturates Screen Urine Negative (Negative); Benzodiazepines Screen Urine Negative (Negative); Cocaine Screen Urine Negative (Negative); Opiate Screen Urine Negative (Negative); PCP Screen Urine Negative (Negative); THC Screen Urine Positive (Negative)
[2021-09-08 05:32] VITALS: BP 147/97; PULSE 104; RESP 18; O2SAT 98
[2021-09-08 05:33] LABS: Alanine Aminotransferase 9 U/L (0-41); Albumin Level 4.3 g/dL (3.5-5.2); Alkaline Phosphatase 55 IU/L (40-130); Anion Gap 15.6 (5-19); Aspartate Amino Transferase 12 U/L (0-40); Blood Urea Nitrogen 7 mg/dL (6-20); Carbon Dioxide 22 mmol/L (22-29); Chloride 102 mmol/L (98-107); Globulin 2.3 g/dL (1.3-4.6); Glomerular Filtration Rate 178.2 mL/min (90-130); Glucose 106 mg/dL (65-115); Osmolality Calculated 280 mOsm/kg (285-295); Potassium 3.6 mmol/L (3.5-5.1); Sodium 136 mmol/L (136-145); Total Bilirubin 0.4 mg/dL (0.15-1.2); Total Protein 6.6 g/dL (6.6-8.7)
[2021-09-08 05:34] LABS: Acetaminophen < 5.0 ug/mL (10-30); Alcohol Level < 10 mg/dL (0-10); Salicylate < 0.3 mg/dL (3-10)
--- NOTE | 2021-09-08 08:09 | W.PM.NPUH&PS ---
Providers/Chief Complaint Admitting Physician: Jermaine Pederson MD Chief Complaint: 'fears for life' HPI NPU History of Present Illness Paul Rhodes is a 46 year old male who presented to the emergency department with the following report: Chief Complaint: Psychiatric Symptoms Stated Complaint: 'fears for life' Source: patient and EMS Mode of arrival: EMS Limitations: no limitations History of Present Illness: HPI Narrative: 46-year-old male has a history of schizophrenia and homelessness states that he has been having some depression he is also hearing voices. He supposed to take Depakote he states he has Depakote but he hasn't been taking it. Called EMS states he feels like he needs to be admitted for his paranoia he states he also has nowhere to go and is homeless currently. Denies any suicidality or homicidality. He was admitted to the neuropsychiatric unit for definitive treatment of those issues. He presents today unwilling to answer any questions that were presented by this service writer advisor. We have a challenging past which includes periods of extreme psychosis on his part wherein he has significant racist ideologies and significant anger with this service writer advisor including times where he has postured as if he was going to attack this service writer advisor only to be back down by the presence of security. I told multiple questions about how he was doing, what he has been doing since his last discharge, how we might be able to assist him with in maintaining his independence and autonomy and he continues to await with a fairly irritated almost clenched face look. An excerpt from his 08/01/2021 discharge is included below for context. Per his 08/01/2021 [facility] inpatient psychiatric discharge summary: PSYCH PATIENT Brief History: Paul Rhodes is a 46 year old male with previous diagnosis of schizoaffective disorder, bipolar type often exacerbated by methamphetamine abuse, who is admitted because he felt he needed to flee his home because of paranoid delusions that he was being watched there. The patient says he often hears a car pull up at night onto the property where he is living, hears the door closed, and sometimes hears people whispering, as if they do not want to be heard. He says, there is someone out there watching me. I feel the law is setting me up. The law is pushing me to try to do drugs. He repeats these types of phrases over and over again, even after I repeated back to him and he tells me that he feels that I have understood what he is saying. He works himself up into tearful fear that bad things are going to happen to him. He says these things are really happening and there is no chance that they could be part of his schizoaffective disorder. He denies hearing voices or seeing things that are not there. He denies wanting to kill himself. However he does say, if I cannot live in peace, I want to . He has some additional delusions regarding his medication. He says that, God told me not to take the Seroquel, because it would make him too sleepy and the people who were watching his trailer would open get him. He says that Invega, takes away my soul. He is very adamant about not taking Invega, but does say he could take Seroquel here, because the people will not get him here. At another point, he talks about the [place] doctrine, which says that if someone comes into your house you can kill them. The patient says he has been drinking 1 can of beer at a single session, and has used marijuana and methamphetamines. He also smokes cigarettes. The patient says he has had too many psychiatric hospitalizations to be able to count them. He says he receives follow-up psychiatric treatment through a clinic in [place], [place]. He does report manic episodes in which she has a lot of energy, and can stay up for 5 nights in a row without needing sleep. He denies euphoric periods. Family history: Patient says that his paternal aunt had schizophrenia. Psychosocial history: He is on disability and has been living in a trailer. Legal history: No legal difficulties. Records indicate that at one point he had been assigned a guardian, but that order had been rescinded. The previous admission note from 06/19/2021 states Today, he presents known to this service writer advisor from previous hospitalizations appearing as he generally does at the beginning of those hospitalizations. Paul presents floridly psychotic, pacing the hallways with ranting and talking to himself. There are times that he can be seen moving his right hand in a puppet motion, as if his hand is speaking to him, and that he turns and listens to what his hand says, and then responds back on many different topics. He endorses during this time working for the [employer], the [employer], the [employer], and then goes on rants about what each of these organizations do. He also continued with significant religiously driven banter about Alp[employer] and God, and him being an arc higinio, and him not being able to be kept in this building because will intervene. At one point, he did acknowledge that he had stopped taking his medication because he is homeless now, but he could not explain what happened that led him to being homeless. He identified that Seroquel and Depakote were medications that he takes, and he would take 300 mg of Seroquel and 500 mg of Depakote. He then went on a rant about those medications being mixed and faked by doctors, and that he would know when he tasted the medication if we had adulterated it in any way or used fake medication, and then he used his hand to puppet that God told him that if we put the fake stuff in his body, he would intervene and make it the real Depakote. He then said that we could start the medication. As per previous hospitalizations, he was very racially driven and spent some time discussing the fact that he was not racist, but then bringing attention to this service writer advisor being and that he likes black people, just other people do not like black people. He was unable to stay on task to answer previous questions, but an excerpt from his last hospitalization is included for context. It is noteworthy that he has never been able to recover psychiatrically without a 21-day hold, and long acting injectable, to get him to a place where he can leave the hospital functionally. [facility]. We talked some about his schizoaffective disorder. He feels he has primarily a bipolar disorder. The psychosis is caused by drug use. This is a possibility certainly. He wants to decrease Seroquel at bedtime from 300 mg to 150 mg, because the 300 mg makes him too groggy in the morning. I am willing to give this a try. He denies any other side effects from medication. The patient was admitted to the neuropsychiatric unit for definitive treatment of these issues. On the unit he easily acclimated to the individual, group and milieu therapies as he has been here before recently. There were some mild psychotic symptoms present initially which resolved. He talked to his landlord about his fears that someone was going to break into his house and harm him. His landlord has a shed right near his trailer. She thinks that people may be wanting to steal things out of the shed, and that is why he is hearing a car pull up at night. This thought eased his mind greatly, and he was not nearly so worried that someone is going to hurt him. Seroquel was decreased from 300 mg at bedtime to 150 mg at bedtime. He feels this is an adequate dose for him. He was receptive to treatment team recommendations and showed modest improvement and was able to contract for safety prior to discharge. During the hospitalization, patient had routine laboratory studies which were within normal limits except for few outliers. Additionally there was a general medical evaluation which was also within normal limits and revealed no new acute processes. Discharge Summary: At the time of discharge, psychosis and lethality were denied. Mood and anxiety were well managed. Patient endorsed a plan to avoid all drugs of abuse and follow-up with the aftercare recommendations of the treatment team. Patient was evaluated and deemed to be absent credible lethality, and had achieved the maximum benefit from an inpatient hospitalization, so was discharged. Meds NPU Home Medications Medication Instructions Recorded Confirmed Last Taken Type divalproex [Depakote ER] 500 mg PO BEDTIME 09/08/21 09/08/21 Unknown History Allergies Allergy/AdvReac Type Severity Reaction Status Date / Time Penicillins Allergy ALGY-Hives Verified 07/29/21 21:55 PFS NPU PFS: Medical History (Updated 08/02/21 @ 00:01 by ) Chronic schizophrenia Social History Smoking and tobacco status: current every day smoker Mental Status Exam MSE Comments: This is a overweight but well-developed white male in hospital scrubs with adequate grooming and no eye contact. No abnormal movements except for some psychomotor agitation seen after the conversation as he walked around the room speaking to himself. Uncooperative with exam. In mild distress. Speech was absent except for times he seemed to be mouthing things and speaking to himself before and after the interview. Mood not described, affect annoyed and irritable. Thought process was not evaluated. Thought content: Patient did not answer questions surrounding lethality, perceptual disturbances or oddities of thought but appeared to have the behaviors consistent with times where he is hearing voices and delusional. He did appear internally preoccupied. Attention and concentration as well as memory appeared unreliable but none were formally tested. Insight, judgment, and impulse control are all impaired. Vitals/I&O/Wt Last Vital Signs Temp 97.6 F 09/08/21 04:05 Pulse 104 H 09/08/21 05:32 Resp 18 09/08/21 05:32 BP 147/97 09/08/21 05:32 Pulse Ox 98 09/08/21 05:32 Weight last 48 hrs Weight 88.451 kg Data NPU : 09/08/21 04:30 09/08/21 04:30 A&P Assessment and plan (1) Schizoaffective disorder, bipolar type: Status: Chronic (2) Methamphetamine dependence: Status: Chronic Additional A&P Information Patient is a 46-year-old, white male, well known to this system with a long history of psychosis, some past cannabis use, with history of long hospitalizations secondary to being off of medication and/or sometimes concerns for active addiction, but many times just purely psychotic secondary to his organic disease, who presents nonverbal and appearing agitated. RECOMMENDATION AND PLAN: 1. Continue current medication. 2. Encourage individual, group, and milieu therapy. 3. Continue q-15 minute checks for safety. 4. Need to determine when his last Invega Sustenna injection was likely plan for a 21-day hold given the likelihood that he is off of his medication again and appearing worse. Involuntary Hold Information 96 Hour Hold: 96 Hour Involuntary Admission: Yes Attestations NPU Medical Necessity Statement*: Psychiatric hospitalization is medically necessary to prevent access to lethal means, to reevaluate medication, and to coordinate a safe discharge. Patient will be in the hospital for over 2 midnights. Likely length of stay is 7-10 days. Coding Level of Care Code Acute Survival Equipment Repairer for Brian Beltran Diagnoses Schizoaffective disorder, bipolar type F25.0 Methamphetamine dependence F15.20
[2021-09-08 14:00] VITALS: RESP 16
[2021-09-08] MEDS: divalproex ER 500 mg Tablet (24H) PO (21:20)
[2021-09-08 21:21] VITALS: RESP 18
[2021-09-09 06:00] VITALS: RESP 17
[2021-09-09] MEDS: nicotine 2 mg Gum BUCCAL ×5 (06:38→22:59)
[2021-09-09 13:57] VITALS: RESP 16
[2021-09-09] MEDS: paliperidone palmitate 234 mg Syringe IM (14:05)
--- NOTE | 2021-09-09 14:11 | P.NPUPN_ITS ---
Subjective NPU Subjective: Interval history: Patient presents today continuing to be resistant to interaction but less so than yesterday. Treatment team worked really hard and was able to find a residential treatment facility that his guardian was comfortable with and he was agreeable to go to. The unfortunate issue became that he had apparently not gotten his injection and based on how he was functioning we agreed and the guardian agreed that he needed his injection. He was resistant to getting it but ultimately agreed to do it with the plan of discharging him to his residential treatment facility after he got the injection. However they informed us of a limited admission window that we could not meet given the 3-1/2-[address] Mental Status Exam MSE Comments: This is a overweight but well-developed white male in hospital scrubs with adequate grooming and no eye contact. No abnormal movements except for some psychomotor agitation seen after the conversation as he walked around t he room speaking to himself. Uncooperative with exam. In mild distress. Speech was limited except for times he was threatening angry about the shot. Mood not described, affect annoyed and irritable. Thought process was not evaluated. Thought content: Patient did not answer questions surrounding lethality, perceptual disturbances or oddities of thought but appeared to have the behaviors consistent with times where he is hearing voices and delusional. He did appear internally preoccupied. Attention and concentration as well as memory appeared unreliable but none were formally tested. Insight, judgment, and impulse control are all impaired. Vitals/I&O/Wt Last Vital Signs Temp 97.6 F 09/08/21 04:05 Pulse 104 H 09/08/21 05:32 Resp 16 09/09/21 13:57 BP 147/97 09/08/21 05:32 Pulse Ox 98 09/08/21 05:32 Weight last 48 hrs Weight 88.451 kg Data NPU : 09/08/21 04:30 09/08/21 04:30 A&P Additional A&P Information (1) Schizoaffective disorder, bipolar type: (2) Methamphetamine dependence: Additional A&P Information Patient is a 46-year-old, white male, well known to this system with a long history of psychosis, some past cannabis use, with history of long hospitalizations secondary to being off of medication and/or sometimes concerns for active addiction, but many times just purely psychotic secondary to his organic disease, who presents nonverbal and appearing agitated. RECOMMENDATION AND PLAN: 1. Continue current medication. Give invega 234mg im today. 2. Encourage individual, group, and milieu therapy. 3. Continue q-15 minute checks for safety. 4. try to figure out whether he needs the booster injection in 1 week. Was un able to go to placement today due to their time restraints for admission. Involuntary Hold Information 96 Hour Hold: 96 Hour Involuntary Admission: Yes Attestations NPU Medical Necessity Statement*: Psychiatric hospitalization is medically necessary to prevent access to lethal means, to reevaluate medication, and to coordinate a safe discharge. Will discharge sunday/sunday.. Coding Level of Care Code Acute Marketing Strategist for Brian Beltran
[2021-09-09] MEDS: divalproex ER 500 mg Tablet (24H) PO (19:53)
[2021-09-09 21:17] VITALS: RESP 16
[2021-09-10] MEDS: nicotine 2 mg Gum BUCCAL ×3 (02:53→20:36)
[2021-09-10 06:00] VITALS: RESP 18
--- NOTE | 2021-09-10 08:34 | P.NPUPN_ITS ---
Subjective NPU Subjective: Interval history: Patient presents today initially reporting that the only allowed to get 1 shot a month of the Invega Sustenna and will not allow me to discuss the fact that we have missed doses you do have the loading dose which is 2 shots within a week. We discussed the continued plan for discharge on Sunday. Which he reported being supportive of. Mental Status Exam MSE Comments: This is a overweight but well-developed white male in hospital scrubs with adequate grooming and no eye contact. No abnormal movements except for some psychomotor agitation seen after the conversation as he walked around the room speaking to himself. Uncooperative with exam at times. In mild distress. Speech was more spontaneous and regular rate and volume. Mood not described, affect annoyed and irritable. Thought process was not evaluated. Thought content: Patient did not answer questions surrounding lethality, perceptual disturbances or oddities of thought but appeared to have the behaviors consistent with times where he is hearing voices and delusional. He did appear internally preoccupied. Attention and concentration as well as memory appeared unreliable but none were formally tested. Insight, judgment, and impulse control are all impaired. Vitals/I&O/Wt Last Vital Signs Temp 97.6 F 09/08/21 04:05 Pulse 104 H 09/08/21 05:32 Resp 18 09/10/21 06:00 BP 147/97 09/08/21 05:32 Pulse Ox 98 09/08/21 05:32 Data NPU : 09/08/21 04:30 09/08/21 04:30 A&P Additional A&P Information (1) Schizoaffective disorder, bipolar type: (2) Methamphetamine dependence: Additional A&P Information Patient is a 46-year-old, white male, well known to this system with a long history of psychosis, some past cannabis use, with history of long hospitalizations secondary to being off of medication and/or sometimes concerns for active addiction, but many times just purely psychotic secondary to his organic disease, who presents nonverbal and appearing agitated. RECOMMENDATION AND PLAN: 1. Continue current medication. 2. Encourage individual, group, and milieu therapy. 3. Continue q-15 minute checks for safety. 4. try to figure out whether he needs the booster injection in 1 week. dc sunday Involuntary Hold Information 96 Hour Hold: 96 Hour Involuntary Admission: Yes Attestations NPU Medical Necessity Statement*: Psychiatric hospitalization is medically necessary to prevent access to lethal means, to reevaluate medication, and to coordinate a safe discharge. Will discharge sunday/sunday.. Coding Level of Care Code Acute Middle School History Teacher for Brian Beltran
[2021-09-10 14:00] VITALS: RESP 16
[2021-09-10] MEDS: divalproex ER 500 mg Tablet (24H) PO (20:11)
[2021-09-10] MEDS: trazodone 50 mg Tablet PO (20:36)
[2021-09-10 22:00] VITALS: BP 115/78; PULSE 130; RESP 18; TEMP 36.7; O2SAT 98
[2021-09-11] MEDS: nicotine 2 mg Gum BUCCAL ×5 (02:50→22:40)
[2021-09-11 05:36] VITALS: BMI 26.4
[2021-09-11 06:00] VITALS: RESP 17
--- NOTE | 2021-09-11 09:03 | P.NPUPN_ITS ---
Subjective NPU Subjective: Interval history: Patient presents today showing improvement since he received his injection. With much more receptive to conversation and his circumstances. He was very open interested in returning to the residential care facility and we discussed the likelihood of that happening tomorrow. He denies any concerns and as is taking his medication as prescribed. Mental Status Exam MSE Comments: This is a overweight but well-developed white male in hospital scrubs with adequate grooming and improving eye contact. No abnormal movements. Cooperative with exam in no acute distress. Speech was normal rate and and volume. Mood described as all right, affect congruent. Thought process was organized. Thought content: Patient denied suicidal or homicidal ideation, the re were no delusions reported and some hyper mandaeism delusions noted, he denied auditory visual hallucinations and is appearing much less internally preoccupied. Attention and concentration were improving and memory appeared more reliable but none were formally tested. Insight and judgment were improving and impulse control was improving Vitals/I&O/Wt Last Vital Signs Temp 98.0 F 09/10/21 22:00 Pulse 130 H 09/10/21 22:00 Resp 17 09/11/21 06:00 BP 115/78 09/10/21 22:00 Pulse Ox 98 09/10/21 22:00 Weight last 48 hrs Weight 88.451 kg Data NPU : 09/08/21 04:30 09/08/21 04:30 A&P Additional A&P Information (1) Schizoaffective disorder, bipolar type: (2) Methamphetamine dependence: Additional A&P Information Patient is a 46-year-old, white male, well known to this system with a long history of psychosis, some past cannabis use, with history of long hospitalizations secondary to being off of medication and/or sometimes concerns for active addiction, but many times just purely psychotic secondary to his organic disease, who presents nonverbal and appearing agitated. RECOMMENDATION AND PLAN: 1. Continue current medication. 2. Encourage individual, group, and milieu therapy. 3. Continue q-15 minute checks for safety. 4. try to figure out whether he needs the booster injection in 1 week. dc sunday Involuntary Hold Information 96 Hour Hold: 96 Hour Involuntary Admission: Yes Attestations NPU Medical Necessity Statement*: Psychiatric hospitalization is medically necessary to prevent access to lethal means, to reevaluate medication, and to coordinate a safe discharge. Likely discharge on Sunday. Coding Level of Care Code Acute Sales Agent Insurance for Brian Beltran
[2021-09-11 14:00] VITALS: RESP 18
--- NOTE | 2021-09-11 14:46 | PC.NURSE ---
PATIENT REFUSED 1400 VITALS
[2021-09-11 20:06] VITALS: RESP 16
[2021-09-11] MEDS: divalproex ER 500 mg Tablet (24H) PO (20:32)
[2021-09-11] MEDS: trazodone 50 mg Tablet PO (20:32)
[2021-09-12] MEDS: nicotine 2 mg Gum BUCCAL ×6 (00:52→19:45)
[2021-09-12 06:00] VITALS: RESP 16
--- NOTE | 2021-09-12 09:04 | DCPLANNER ---
IMM completed on 09/11/21 @ 0901. Pt was given a copy of his rights and stated he understood his rights.
--- NOTE | 2021-09-12 10:21 | PC.NURSE ---
PRN Patient utilizing PRN Nicotine gum for cravings to good effect. Patient A&OX4. States ready to discharge today.
--- NOTE | 2021-09-12 11:11 | P.NPUDS_ITS ---
Diagnoses at Discharge Discharge Diagnosis (1) Schizoaffective disorder, bipolar type: Status: Chronic (2) Methamphetamine dependence: Status: Chronic Reason for Visit Reason for Visit: 'fears for life' Brief History: History of Present Illness Paul Rhodes is a 46 year old male who presented to the emergency department with the following report: Chief Complaint: Psychiatric Symptoms Stated Complaint: 'fears for life' Source: patient and EMS Mode of arrival: EMS Limitations: no limitations History of Present Illness: HPI Narrative: 46-year-old male has a history of schizophrenia and homelessness states that he has been having some depression he is also hearing voices. He supposed to take Depakote he states he has Depakote but he hasn't been taking it. Called EMS states he feels like he needs to be admitted for his paranoia he states he also has nowhere to go and is homeless currently. Denies any suicidality or homicidality. He was admitted to the neuropsychiatric unit for definitive treatment of those issues. He presents today unwilling to answer any questions that were presented by this residential mortgage underwriter. We have a challenging past which includes periods of extreme psychosis on his part wherein he has significant racist ideologies and significant anger with this residential mortgage underwriter including times where he has postured as if he was going to attack this residential mortgage underwriter only to be back down by the presence of security. I told multiple questions about how he was doing, what he has been doing since his last discharge, how we might be able to assist him with in maintaining his independence and autonomy and he continues to await with a fairly irritated almost clenched face look. An excerpt from his 08/01/2021 discharge is included below for context. Per his 08/01/2021 [facility] inpatient psychiatric discharge summary: PSYCH PATIENT Brief History: Paul Rhodes is a 46 year old male with previous diagnosis of schizoaffective disorder, bipolar type often exacerbated by methamphetamine abuse, who is admitted because he felt he needed to flee his home because of paranoid delusions that he was being watched there. The patient says he often hears a car pull up at night onto the property where he is living, hears the door closed, and sometimes hears people whispering, as if they do not want to be heard. He says, there is someone out there watching me. I feel the law is setting me up. The law is pushing me to try to do drugs. He repeats these types of phrases over and over again, even after I repeated back to him and he tells me that he feels that I have understood what he is saying. He works himself up into tearful fear that bad things are going to happen to him. He says these things are really happening and there is no chance that they could be part of his schizoaffective disorder. He denies hearing voices or seeing things that are not there. He denies wanting to kill himself. However he does say, if I cannot live in peace, I want to . He has some additional delusions regarding his medication. He says that, God told me not to take the Seroquel, because it would make him too sleepy and the people who were watching his trailer would open get him. He says that Invega, takes away my soul. He is very adamant about not taking Invega, but does say he could take Seroquel here, because the people will not get him here. At another point, he talks about the [place] doctrine, which says that if someone comes into your house you can kill them. The patient says he has been drinking 1 can of beer at a single session, and has used marijuana and methamphetamines. He also smokes cigarettes. The patient says he has had too many psychiatric hospitalizations to be able to count them. He says he receives follow-up psychiatric treatment through a clinic in [place], [place]. He does report manic episodes in which she has a lot of energy, and can stay up for 5 nights in a row without needing sleep. He denies euphoric periods. Family history: Patient says that his paternal aunt had schizophrenia. Psychosocial history: He is on disability and has been living in a trailer. Legal history: No legal difficulties. Records indicate that at one point he had been assigned a guardian, but that order had been rescinded. The previous admission note from 06/19/2021 states Today, he presents known to this residential mortgage underwriter from previous hospitalizations appearing as he generally does at the beginning of those hospitalizations. Paul presents floridly psychotic, pacing the hallways with ranting and talking to himself. There are times that he can be seen moving his right hand in a puppet motion, as if his hand is speaking to him, and that he turns and listens to what his hand says, and then responds back on many different topics. He endorses during this time working for the [employer], the [employer], the [employer], and then goes on rants about what each of these organizations do. He also continued with significant religiously driven banter about Alpesh and God, and him being an arc higinio, and him not being able to be kept in this building because will intervene. At one point, he did acknowledge that he had stopped taking his medication because he is homeless now, but he could not explain what happened that led him to being homeless. He identified that Seroquel and Depakote were medications that he takes, and he would take 300 mg of Seroquel and 500 mg of Depakote. He then went on a rant about those medications being mixed and faked by doctors, and that he would know when he tasted the medication if we had adulterated it in any way or used fake medication, and then he used his hand to puppet that God told him that if we put the fake stuff in his body, he would intervene and make it the real Depakote. He then said that we could start the medication. As per previous hospitalizations, he was very racially driven and spent some time discussing the fact that he was not racist, but then bringing attention to this residential mortgage underwriter being and that he likes black people, just other people do not like black people. He was unable to stay on task to answer previous questions, but an excerpt from his last hospitalization is included for context. It is noteworthy that he has never been able to recover psychiatrically without a 21-day hold, and long acting injectable, to get him to a place where he can leave the hospital functionally. [facility]. We talked some about his schizoaffective disorder. He feels he has primarily a bipolar disorder. The psychosis is caused by drug use. This is a possibility certainly. He wants to decrease Seroquel at bedtime from 300 mg to 150 mg, because the 300 mg makes him too groggy in the morning. I am willing to give this a try. He denies any other side effects from medication. The patient was admitted to the neuropsychiatric unit for definitive treatment of these issues. On the unit he easily acclimated to the individual, group and milieu therapies as he has been here before recently. There were some mild psychotic symptoms present initially which resolved. He talked to his landlord about his fears that someone was going to break into his house and harm him. His landlord has a shed right near his trailer. She thinks that people may be wanting to steal things out of the shed, and that is why he is hearing a car pull up at night. This thought eased his mind greatly, and he was not nearly so worried that someone is going to hurt him. Seroquel was decreased from 300 mg at bedtime to 150 mg at bedtime. He feels this is an adequate dose for him. He was receptive to treatment team recommendations and showed modest improvement and was able to contract for safety prior to discharge. During the hospitalization, patient had routine laboratory studies which were within normal limits except for few outliers. Additionally there was a general medical evaluation which was also within normal limits and revealed no new acute processes. Discharge Summary: At the time of discharge, psychosis and lethality were denied. Mood and anxiety were well managed. Patient endorsed a plan to avoid all drugs of abuse and follow-up with the aftercare recommendations of the treatment team. Patient was evaluated and deemed to be absent credible lethality, and had achieved the maximum benefit from an inpatient hospitalization, so was discharged. Hospital Course Hospital Course He slowly acclimated to the individual, group and milieu therapies. Initially he would only take the medications that he likes but he ultimately allowed us to restart his Invega injection. We were able to find a residential facility for him which also led to him being more cooperative with the treatment team. Showed significant improvement during the hospitalization and was able to contract for safety prior to discharge. During the hospitalization, patient had routine laboratory studies which were within normal limits except for few outliers. Additionally there was a general medical evaluation which was also within normal limits and revealed no new acute processes. Discharge Summary: At the time of discharge, lethality was denied and psychosis was resolving. Mood and anxiety were well managed. Patient endorsed a plan to avoid all drugs of abuse and follow-up with the aftercare recommendations of the treatment team. Patient was evaluated and deemed to be absent credible lethality, and had achieved the maximum benefit from an inpatient hospitalization, so was discharged. Involuntary Hold Information 96 Hour Hold: 96 Hour Involuntary Admission: Yes Mental Status Exam MSE Comments: This is a overweight but well-developed white male in hospital scrubs with adequate grooming and improving eye contact. No abnormal movements. Cooperative with exam in no acute distress. Speech was normal rate and and volume. Mood described as good, affect congruent. Thought process was organized. Thought content: Patient denied suicidal or homicidal ideation, there were no delusions reported and some hyper latter day delusions diminishing, he denied auditory or visual hallucinations and is appearing much less internally preoccupied. Attention and concentration were improving and memory appeared more reliable but none were formally tested. Insight and judgment were improving and impulse control was improving Discharge Data Vitals: Last Vital Signs Temp 98.0 F 09/10/21 22:00 Pulse 130 H 09/10/21 22:00 Resp 16 09/12/21 06:00 BP 115/78 09/10/21 22:00 Pulse Ox 98 09/10/21 22:00 Discharge Plan Discharge Patient Disposition: Home Condition: Stable Prescriptions: New Seroquel 200 mg tablet 200 mg PO DAILY 30 Days Qty: 30 RF: 1 Invega Sustenna 156 mg/mL syringe 156 mg IM Q30D 30 Days Qty: 1 RF: 1 Continued Depakote ER 500 mg tablet extended release 24 hr 500 mg PO BEDTIME 30 Days Qty: 30 RF: 1 Discharge Orders: Discharge Order (Routine); Ordered 09/13/21 Ordered By: Jermaine Pederson Referrals: [facility] [Other] Discharge Diet: Regular Discharge Activity: Resume usual activity Patient Instructions: Schizoaffective Disorder (ED), Opioid Safety Discharge Attestations NPU Time Spent in Discharge Care*: less than 30 min Specific Discharge Activities: Specific discharge activities: educating patient, discussing with case planner/social workers/dc planners, documenting/other paperwork and evaluating patient/reviewing data Status at Discharge: Cognitive status at discharge: cognitively intact , Behavioral status at discharge: cooperative and can be uncooperative , Coding Level of Care Code Acute Chg DC note Diagnoses Schizoaffective disorder, bipolar type F25.0 Methamphetamine dependence F15.20
[2021-09-12] MEDS: paliperidone palmitate 156 mg Syringe IM (11:12)
[2021-09-12 11:13] VITALS: BP 128/60; PULSE 88; RESP 16; O2SAT 96
[2021-09-12 14:00] VITALS: RESP 16
--- NOTE | 2021-09-12 14:55 | PC.NURSE ---
pt. refused vial signs.
--- NOTE | 2021-09-12 16:40 | P.NPUPN_ITS ---
Subjective NPU Subjective: Interval history: Patient presents today somewhat frustrated with the system. He was excepting of his Invega Sustenna 156 mg IM to the deltoid which was due Sunday but given today to avoid any problems or to create any animosity at his new location. We were advised that his Medicaid does not cover transportation which was new news to us. He was not happy with this and initially lost his temper but then was able to quickly acknowledge that we are trying to get him to his new residence as hard as we can. His guardian and the treatment team discussed with him the efforts that are making to get him to his residential treatment facility. Mental Status Exam MSE Comments: This is a overweight but well-developed white male in hospital scrubs with adequate grooming and improving eye contact. No abnormal movements. Cooperative with exam in no acute distress except briefly when he was feeling people were not being straight with him. Speech was normal rate and and volume. Mood described as looking forward to discharge, affect congruent. Thought process was organized. Thought content: Patient denied suicidal or homicidal ideation, there were no delusions reported and some hyper hindu delusions diminishing, he denied auditory visual hallucinations and is appearing much less internally preoccupied. Attention and concentration were improving and memory a ppeared more reliable but none were formally tested. Insight and judgment were improving and impulse control was improving Vitals/I&O/Wt Last Vital Signs Temp 98.0 F 09/10/21 22:00 Pulse 88 09/12/21 11:13 Resp 19 H 09/12/21 21:40 BP 128/60 09/12/21 11:13 Pulse Ox 96 09/12/21 11:13 Data NPU : 09/08/21 04:30 09/08/21 04:30 A&P Additional A&P Information (1) Schizoaffective disorder, bipolar type: (2) Methamphetamine dependence: Additional A&P Information Patient is a 46-year-old, white male, well known to this system with a long history of psychosis, some past cannabis use, with history of long hospitalizations secondary to being off of medication and/or sometimes concerns for active addiction, but many times just purely psychotic secondary to his organic disease, who presents nonverbal and appearing agitated. RECOMMENDATION AND PLAN: 1. Continue current medication. 2. Encourage individual, group, and milieu therapy. 3. Continue q-15 minute checks for safety. 4. Working on transportation for discharge in the morning. Involuntary Hold Information 96 Hour Hold: 96 Hour Involuntary Admission: Yes Attestations NPU Medical Necessity Statement*: Psychiatric hospitalization is medically necessary to prevent access to lethal means, to reevaluate medication, and to coordinate a safe discharge. Plan for discharge tomorrow. Coding Level of Care Code Acute Controls Project Engineer for Brian Beltran
[2021-09-12] MEDS: divalproex ER 500 mg Tablet (24H) PO (19:45)
[2021-09-12 21:40] VITALS: RESP 19
[2021-09-13 06:00] VITALS: RESP 16
[2021-09-13] MEDS: nicotine 2 mg Gum BUCCAL ×2 (08:58→13:43)
--- NOTE | 2021-09-13 14:04 | PC.NURSE ---
REPORT GIVEN TO EVELIN AT [facility]
== END 2021-09-13 14:04 | disposition home or self-care (01) | DRG 885 ==
LOC: ER 04:28 → NP 05:27
PROVIDERS: Admitting Provider Psychiatry & Neurology Psychiatry; Emergency Provider Emergency Medicine; Visit Provider Psychiatry & Neurology Psychiatry
DX: F25.0 Schizoaffective disorder, bipolar type (principal); F15.20 Other stimulant dependence, uncomplicated; Z59.00 Homelessness unspecified; F17.210 Nicotine dependence, cigarettes, uncomplicated
CPT/HCPCS: 80053; 80164; 80306; 80307; 85025; 96372; 97165; 99285

== ENCOUNTER 2022-07-26 20:47 | Inpatient (IN) | payer MEDICARE, MEDICAID, SELFPAY ==
[2022-07-26 20:51] VITALS: BP 147/96; PULSE 86; RESP 18; TEMP 36.6; O2SAT 99; BMI 27.1
--- NOTE | 2022-07-26 20:57 | ED.C_ITS ---
HPI - Psych General: Chief Complaint: Psychiatric Symptoms Stated Complaint: MHE Time Seen by Provider: 07/26/22 20:51 Source: patient and EMS Mode of arrival: EMS Limitations: no limitations History of Present Illness: 47-year-old male has a history of schizophrenia he states that he feels like his been worsening over the last week he has been increasingly paranoid and hearing voices he states his mother called EMS as he feels like he needs inpatient treatment. He denies any suicidal homicidal alex ations denies any worsening improving factors. Associated symptoms: Reports auditory hallucinations Review of Systems Const: Denies: fever(s), chills, body aches or change in appetite Eyes: Denies: blurry vision or eye discomfort ENMT: Denies: throat pain or dental pain Card: Denies: chest pain Resp: Denies: dyspnea GI: Denies: abdominal pain, nausea, vomiting or diarrhea : Denies: dysuria Musc: Denies: neck pain or back pain Skin/Breast: Denies: rash Neuro: Denies: headache(s) Psych: Reports: paranoia and auditory hallucinations Dawit/Lymph: Denies: easy bruising All/Imm: Denies: urticaria PFSH ED PFSH: Medical History (Updated 07/26/22 @ 21:50 by Charity Childers MD) Chronic schizophrenia Social History Smoking and tobacco status: current every day smoker Physical Exam Const: COMMON NORMALS: no acute distress, patient oriented x3 and healthy appearing HENMT: COMMON NORMALS: normocephalic and atraumatic HEAD & SCALP: normocephalic and atraumatic Eye: COMMON NORMALS: Equal, round and reactive pupils present and EOMs intact bilaterally PUPIL: Yes Equal, round and reactive pupils present Neck/C-Spine: COMMON NORMALS: full ROM and supple Chest: COMMONS NORMALS: normal inspection of the chest and normal palpation of entire chest wall Resp: COMMON NORMALS: normal respiratory effort, No retractions, No use of accessory muscles and clear to auscultation bilaterally AUSCULTATION: clear to auscultation bilaterally Cardio: COMMON NORMALS: regular rate, regular rhythm and No murmurs present (Cardio) RATE: regular rate RHYTHM: regular rhythm GI: COMMON NORMALS: Normal to inspection, nondistended, normoactive bowel sounds present, Soft to palpation, non-tender and no masses PALPATION: Yes Soft to palpation Extremity: COMMON NORMALS: normal to inspection and full ROM Neuro: COMMON NORMALS: patient oriented x3, moves all extremities and no focal motor deficits Psych: COMMON NORMALS: mental status grossly normal, Normal thought process present and cooperative THOUGHT PROCESS: Normal thought process present Skin: COMMON NORMALS: no rashes or lesions noted and no wounds GENERAL SKIN EXAM: no rashes or lesions noted Course Vital Signs: Vital signs: Vital Signs Temperature 97.9 F 07/26/22 20:51 Pulse Rate 86 07/26/22 20:51 Respiratory Rate 18 07/26/22 20:51 Blood Pressure 147/96 07/26/22 20:51 Pulse Oximetry 99 07/26/22 20:51 Oxygen Delivery Me thod 07/26/22 20:51 MDM - Psych Medical Decision Making Patient presents here with chronic schizophrenia with worsening symptoms and acute psychosis he is hearing more voices and more paranoid patient placed on a 96-hour hold I spoke to Dr. Pederson and will admit. Lab Data : 07/26/22 21:10 07/26/22 21:10 Laboratory Results WBC 8.3 10^3/uL (4.0-10.0) 07/26/22 21:10 RBC 4.72 10^6/uL (4.1-5.3) 07/26/22 21:10 Hgb 15.1 g/dL (11.7-16.6) 07/26/22 21:10 Hct 45.2 % (42.0-52.0) 07/26/22 21:10 MCV 95.8 fl (80-94) H 07/26/22 21:10 MCH 32.0 pg (28.0-34.0) 07/26/22 21:10 MCHC 33.4 g/dL (30.0-36.0) 07/26/22 21:10 RDW 12.5 % (12.1-15.1) 07/26/22 21:10 Plt Count 286 10^3/cmm (130-400) 07/26/22 21:10 MPV 9.9 fL (7.4-10.4) 07/26/22 21:10 Neut % (Auto) 78.5 % 07/26/22 21:10 Lymph % (Auto) 12.2 % 07/26/22 21:10 [place] % (Auto) 8.6 % 07/26/22 21:10 Eos % (Auto) 0.1 % 07/26/22 21:10 Baso % (Auto) 0.2 % 07/26/22 21:10 Neut # (Auto) 6.50 10^3/uL (1.8-7.7) 07/26/22 21:10 Lymph # (Auto) 1.0 10^3/uL (0.8-4.8) 07/26/22 21:10 [place] # (Auto) 0.7 10^3/uL (0.2-0.9) 07/26/22 21:10 Eos # (Auto) 0.0 10^3/uL (0.0-0.8) 07/26/22 21:10 Baso # (Auto) 0.0 10^3/uL (0.0-0.1) 07/26/22 21:10 Nucleated RBC % (auto) 0 % 07/26/22 21:10 Nucleated RBCs # 0.0 /100WBC 07/26/22 21:10 Sodium 134 mmol/L (136-145) L 07/26/22 21:10 Potassium 4.7 mmol/L (3.5-5.1) 07/26/22 21:10 Chloride 98 mmol/L (98-107) 07/26/22 21:10 Carbon Dioxide 24 mmol/L (22-29) 07/26/22 21:10 Anion Gap 16.7 (5-19) 07/26/22 21:10 BUN 11 mg/dL (6-20) 07/26/22 21:10 Creatinine 0.8 mg/dL (0.7-1.2) 07/26/22 21:10 GFR Calculation 103.2 mL/min (90-130) 07/26/22 21:10 Glucose 102 mg/dL (65-115) 07/26/22 21:10 Calculated Osmolality 278 mOsm/kg (285-295) L 07/26/22 21:10 Calcium 10.5 mg/dL (8.5-10.5) 07/26/22 21:10 Total Bilirubin 0.8 mg/dL (0.15-1.2) 07/26/22 21:10 AST 47 U/L (0-40) H 07/26/22 21:10 ALT 16 U/L (0-41) 07/26/22 21:10 Alkaline Phosphatase 76 U/L (40-130) 07/26/22 21:10 Total Protein 7.5 g/dL (6.6-8.7) 07/26/22 21:10 Albumin 4.2 g/dL (3.5-5.2) 07/26/22 21:10 Globulin 3.3 g/dL (1.3-4.6) 07/26/22 21:10 Salicylates < 0.3 mg/dL (3-10) L 07/26/22 21:10 Acetaminophen < 5.0 ug/mL (10-30) L 07/26/22 21:10 Ethyl Alcohol < 10 mg/dL (0-10) 07/26/22 21:10 Discharge Plan Discharge Patient Disposition: Admitted As Inpatient Clinical Impression: Chronic schizophrenia, Acute psychosis Condition: Stable Prescriptions: No Action Seroquel 200 mg tablet 200 mg PO DAILY 30 Days Qty: 30 1RF Rx Instructions: Take 1/2 tab for 1 week then full tab Invega Sustenna 156 mg/mL syringe 156 mg IM Q30D 30 Days Qty: 1 1RF Rx Instructions: Next injection due 10/14/2021 Depakote ER 500 mg tablet extended release 24 hr 500 mg PO BEDTIME 30 Days Qty: 30 1RF Coding Level of Care Code ED Carry In Worker for Brian Fwd Exam Comprehensive
[2022-07-26] MEDS: LORazepam 2 mg Tablet PO (21:04)
[2022-07-26 21:13] LABS: Basophils % 0.2 %; Eosinophils % 0.1 %; Hematocrit 45.2 % (42.0-52.0); Hemoglobin 15.1 g/dL (11.7-16.6); Lymphocytes % 12.2 %; Mean Corpuscular HGB Conc 33.4 g/dL (30.0-36.0); Mean Corpuscular Volume 95.8 fl (80-94); Mean Platelet Volume 9.9 fL (7.4-10.4); Monocytes # 0.7 10^3/uL (0.2-0.9); Monocytes % 8.6 %; Neutrophils % 78.5 %; Nucleated Red Blood Cells % 0 %; Platelet Count 286 10^3/cmm (130-400); Red Blood Count 4.72 10^6/uL (4.1-5.3); Red Cell Distribution Width 12.5 % (12.1-15.1); White Blood Count 8.3 10^3/uL (4.0-10.0)
[2022-07-26 21:36] LABS: Alanine Aminotransferase 16 U/L (0-41); Albumin Level 4.2 g/dL (3.5-5.2); Alkaline Phosphatase 76 U/L (40-130); Anion Gap 16.7 (5-19); Aspartate Amino Transferase 47 U/L (0-40); Blood Urea Nitrogen 11 mg/dL (6-20); Calcium 10.5 mg/dL (8.5-10.5); Carbon Dioxide 24 mmol/L (22-29); Chloride 98 mmol/L (98-107); Globulin 3.3 g/dL (1.3-4.6); Glomerular Filtration Rate 103.2 mL/min (90-130); Glucose 102 mg/dL (65-115); Osmolality Calculated 278 mOsm/kg (285-295); Potassium 4.7 mmol/L (3.5-5.1); Sodium 134 mmol/L (136-145); Total Bilirubin 0.8 mg/dL (0.15-1.2); Total Protein 7.5 g/dL (6.6-8.7)
[2022-07-26 21:45] LABS: Acetaminophen < 5.0 ug/mL (10-30); Alcohol Level < 10 mg/dL (0-10); Salicylate < 0.3 mg/dL (3-10)
[2022-07-26 21:56] VITALS: RESP 17
[2022-07-27 00:45] VITALS: RESP 16
[2022-07-27 02:20] VITALS: BP 120/83; PULSE 116; RESP 16; TEMP 36.4; O2SAT 98
[2022-07-27] MEDS: OLANZapine 5 mg ODT PO (02:25)
[2022-07-27 02:35] LABS: Amphetamines Screen Urine Positive (Negative); Barbiturates Screen Urine Negative (Negative); Benzodiazepines Screen Urine Positive (Negative); Cocaine Screen Urine Negative (Negative); Opiate Screen Urine Negative (Negative); PCP Screen Urine Negative (Negative); THC Screen Urine Positive (Negative)
[2022-07-27] MEDS: paliperidone palmitate 156 mg Syringe IM (10:54)
--- NOTE | 2022-07-27 12:57 | PC.NURSE ---
Behavioral Assessment Patient talking to himself in his room although he denies AH/VH. Also denies SI/HI. Patient appears anxious, tapping his foot. He states he's tired and just wants to sleep. Not very cooperative with assessment.
--- NOTE | 2022-07-27 13:09 | P.NPUHP_ITS ---
Providers/Chief Complaint Admitting Physician: Jermaine Pederson MD Chief Complaint: MHE HPI NPU History of Present Illness Paul Rhodes is a 47 year old male who presented to the emergency department with the following report: Chief Complaint: Psychiatric Symptoms Stated Complaint: MHE Time Seen by Provider: 07/26/22 20:51 Source: patient and EMS Mode of arrival: EMS Limitations: no limitations History of Present Illness: 47-year-old male has a history of schizophrenia he states that he feels like his been worsening over the last week he has been increasingly paranoid and hearing voices he states his mother called EMS as he feels like he needs inpatient treatment. He denies any suicidal homicidal ideations denies any worsening improving factors. Associated symptoms: Reports auditory hallucinations. He is admitted to the neuropsychiatric unit for definitive treatment of those issues. He presents today like he often does when he has not taken his medication with significant psychosis, high energy and delusional thinking. Initially made it clear he was not going to take his medication. He would not resume the shot of Invega Sustenna, but then he agreed to take the shot but reported he would not take the oral medications, Depakote and Seroquel that have served him well. Reports appeared to suggest that he has not had them for a couple of months. He was also unhappy with identified that he was only 8 or because he came voluntarily. We discussed the fact that he has a guardian, so none of that matters. He was not a good historian and so an excerpt of his last hospitalization is included below for context. Per his 09/12/2021 [facility] inpatient psychiatric discharge summary: Paul Rhodes is a 46 year old male who presented to the emergency department with the following report: Chief Complaint: Psychiatric Symptoms Stated Complaint: 'fears for life' Source: patient and EMS Mode of arrival: EMS Limitations: no limitations History of Present Illness: HPI Narrative: 46-year-old male has a history of schizophrenia and homelessness states that he has been having some depression he is also hearing voices. He supposed to take Depakote he states he has Depakote but he hasn't been taking it. Called EMS states he feels like he needs to be admitted for his paranoia he states he also has nowhere to go and is homeless currently. Denies any suicidality or homicidality. He was admitted to the neuropsychiatric unit for definitive treatment of those issues. He presents today unwilling to answer any questions that were presented by this designer writer. We have a challenging past which includes periods of extreme psychosis on his part wherein he has significant racist ideologies and significant anger with this designer writer including times where he has postured as if he was going to attack this designer writer only to be back down by the presence of security. I told multiple questions about how he was doing, what he has been doing since his last discharge, how we might be able to assist him with in maintaining his independence and autonomy and he continues to await with a fairly irritated almost clenched face look. An excerpt from his 08/01/2021 discharge is included below for context. Per his 08/01/2021 [facility] inpatient psychiatric discharge summary: PSYCH PATIENT Brief History: Paul Rhodes is a 46 year old male with p revious diagnosis of schizoaffective disorder, bipolar type often exacerbated by methamphetamine abuse, who is admitted because he felt he needed to flee his home because of paranoid delusions that he was being watched there. The patient says he often hears a car pull up at night onto the property where he is living, hears the door closed, and sometimes hears people whispering, as if they do not want to be heard. He says, there is someone out there watching me. I feel the law is setting me up. The law is pushing me to try to do drugs. He repeats these types of phrases over and over again, even after I repeated back to him and he tells me that he feels that I have understood what he is saying. He works himself up into tearful fear that bad things are going to happen to him. He says these things are really happening and there is no chance that they could be part of his schizoaffective disorder. He denies hearing voices or seeing things that are not there. He denies wanting to kill himself. However he does say, if I cannot live in peace, I want to . He has some additional delusions regarding his medication. He says that, God told me not to take the Seroquel, because it would make him too sleepy and the people who were watching his trailer would open get him. He says that Invega, takes away my soul. He is very adamant about not taking Invega, but does say he could take Seroquel here, because the people will not get him here. At another point, he talks about the [place] doctrine, which says that if someone comes into your house you can kill them. The patient says he has been drinking 1 can of beer at a single session, and has used marijuana and methamphetamines. He also smokes cigarettes. The patient says he has had too many psychiatric hospitalizations to be able to count them. He says [facility] [place], [place]. He does report manic episodes in which she has a lot of energy, and can stay up for 5 nights in a row without needing sleep. He denies euphoric periods. Family history: Patient says that his paternal aunt had schizophrenia. Psychosocial history: He is on disability and has been living in a trailer. Legal history: No legal difficulties. Records indicate that at one point he had been assigned a guardian, but that order had been rescinded. The previous admission note from 06/19/2021 states Today, he presents known to this designer writer from previous hospitalizations appearing as he generally does at the beginning of those hospitalizations. Paul presents floridly psychotic, pacing the hallways with ranting and talking to himself. There are times that he can be seen moving his right hand in a puppet motion, as if his hand is speaking to him, and that he turns and listens to what his hand says, and then responds back on many different topics. He endorses during this time working for the [employer], the [employer], the [employer], and then goes on rants about what each of these organizations do. He also continued with significant religiously driven banter about Alp[employer] and God, and him being an arc higinio, and him not being able to be kept in this building because will intervene. At one point, he did acknowledge that he had stopped taking his medication because he is homeless now, but he could not explain what happened that led him to being homeless. He identified that Seroquel and Depakote were medications that he takes, and he would take 300 mg of Seroquel and 500 mg of Depakote. He then went on a rant about those medications being mixed and faked by doctors, and that he would know when he tasted the medication if we had adulterated it in any way or used fake medication, and then he used his hand to puppet that God told him that if we put the fake stuff in his body, he would intervene and make it the real Depakote. He then said that we could start the medication. As per previous hospitalizations, he was very racially driven and spent some time discussing the fact that he was not racist, but then bringing attention to this designer writer being and that he likes black people, just other people do not like black people. He was unable to stay on task to answer previous questions, but an excerpt from his last hospitalization is included for context. It is noteworthy that he has never been able to recover psychiatrically without a 21-day hold, a nd long acting injectable, to get him to a place where he can leave the hospital functionally. [facility]. We talked some about his schizoaffective disorder. He feels he has primarily a bipolar disorder. The psychosis is caused by drug use. This is a possibility certainly. He wants to decrease Seroquel at bedtime from 300 mg to 150 mg, because the 300 mg makes him too groggy in the morning. I am willing to give this a try. He denies any other side effects from medication. The patient was admitted to the neuropsychiatric unit for definitive treatment of these issues. On the unit he easily acclimated to the individual, group and milieu therapies as he has been here before recently. There were some mild psychotic symptoms present initially which resolved. He talked to his landlord about his fears that someone was going to break into his house and harm him. His landlord has a shed right near his trailer. She thinks that people may be wanting to steal things out of the shed, and that is why he is hearing a car pull up at night. This thought eased his mind greatly, and he was not nearly so worried that someone is going to hurt him. Seroquel was decreased from 300 mg at bedtime to 150 mg at bedtime. He feels this is an adequate dose for him. He was receptive to treatment team recommendations and showed modest improvement and was able to contract for safety prior to discharge. During the hospitalization, patient had routine laboratory studies which were within normal limits except for few outliers. Additionally there was a general medical evaluation which was also within normal limits and revealed no new acute processes. Discharge Summary: At the time of discharge, psychosis and lethality were denied. Mood and anxiety were well managed. Patient endorsed a plan to avoid all drugs of abuse and fo llow-up with the aftercare recommendations of the treatment team. Patient was evaluated and deemed to be absent credible lethality, and had achieved the maximum benefit from an inpatient hospitalization, so was discharged. Hospital Course Hospital Course He slowly acclimated to the individual, group and milieu therapies. Initially he would only take the medications that he likes but he ultimately allowed us to restart his Invega injection. We were able to find a residential facility for him which also led to him being more cooperative with the treatment team. Showed significant improvement during the hospitalization and was able to contract for safety prior to discharge. During the hospitalization, patient had routine laboratory studies which were within normal limits except for few outliers. Additionally there was a general medical evaluation which was also within normal limits and revealed no new acute processes. Discharge Summary: At the time of discharge, lethality was denied and psychosis was resolving. Mood and anxiety were well managed. Patient endorsed a plan to avoid all drugs of abuse and follow-up with the aftercare recommendations of the treatment team. Patient was evaluated and deemed to be absent credible lethality, and had achieved the maximum benefit from an inpatient hospitalization, so was discharged. Meds NPU Home Medications Medication Instructions Recorded Confirmed Last Taken Type divalproex 500 mg tablet,extended 1,000 mg PO BEDTIME 07/27/22 07/27/22 Unknown History release 24 hr quetiapine 300 mg tablet 300 mg PO BEDTIME 07/27/22 07/27/22 Unknown History Allergies Allergy/AdvReac Type Severity Reaction Status Date / Time Penicillins Allergy ALGY-Hives Verified 07/26/22 20:56 PFS NPU PFSH: Medical History (Updated 07/26/22 @ 21:50 by Charity Childers MD) Chronic schizophrenia Social History Smoking and tobacco status: current every day smoker Mental Status Exam MSE Comments: This is a overweight but well-developed white male in hospital scrubs with adequate grooming and no eye contact. No abnormal movements except for some psychomotor agitation seen after the conversation as he walked around speaking to himself. Uncooperative with exam in mild to moderate distress. Speech slightly increased rate and normal volume. Mood not described, affect annoyed and irritable. Thought process was linear and mostly organized. Thought content: Patient did not answer questions surrounding lethality but he did not demonstrate aggression towards himself or others, no delusions reported but paranoid and persecutory delusions noted and pleasant without lesions but did appear to be. Attention and concentration appear intact and memory appeared unreliable but none were formally tested. Insight, judgment, and impulse control are all impaired. Vitals/I&O/Wt Last Vital Signs Temp 97.6 F 07/27/22 02:20 Pulse 116 H 07/27/22 02:20 Resp 16 07/27/22 02:20 BP 120/83 07/27/22 02:20 Pulse Ox 98 07/27/22 02:20 O2 Del Method 07/27/22 02:20 Weight last 48 hrs Weight 90.718 kg Data NPU : 07/26/22 21:10 07/26/22 21:10 A&P Assessment and plan (1) Chronic schizophrenia: (2) Acute psychosis: (3) Schizoaffective disorder, bipolar type: (4) Methamphetamine dependence: Plan Patient is a 47-year-old, white male, well known to this system with a long history of psychosis, some past cannabis use, with history of long hospitalizations secondary to being off of medication and/or sometimes concerns for active addiction, but many times just purely psychotic secondary to his organic disease, who presents non adherent to medications. RECOMMENDATION AND PLAN: 1.? Continue current medication. Restart seroquel and depakote. 2.? Encourage individual, group, and milieu therapy. 3.? Continue q-15 minute checks for safety. 4.? Give Invega Sustenna injection with likely plan for a 21-day hold. Involuntary Hold Information 96 Hour Hold: 96 Hour Involuntary Admission: Yes 96 Hour Hold Ending Date: 08/02/22 96 Hour Hold Ending Time: 01:55 Attestations NPU Medical Necessity Statement*: Psychiatric hospitalization is medically necessary to prevent access to lethal means, to reevaluate medication, and to coordinate a safe discharge. Patient will be in the hospital for over 2 midnights. Likely length of stay is 7-10 days. Coding Level of Care Code Acute [employer] Drier for g Fwd Diagnoses Chronic schizophrenia F20.9 Acute psychosis F23 Schizoaffective disorder, bipolar type F25.0 Methamphetamine dependence F15.20
[2022-07-27 14:00] VITALS: BP 130/89; PULSE 96; RESP 20; TEMP 36.6; O2SAT 96
[2022-07-27] MEDS: nicotine 2 mg Gum BUCCAL (18:52)
[2022-07-27 20:02] VITALS: RESP 18
[2022-07-27] MEDS: divalproex ER 500 mg Tablet (24H) 1000 MG PO ×2 (21:19→21:22)
[2022-07-27] MEDS: trazodone 50 mg Tablet PO ×2 (21:20→21:22)
[2022-07-27] MEDS: quetiapine 300 mg Tablet PO ×2 (21:20→21:22)
[2022-07-28 06:00] VITALS: RESP 16
--- NOTE | 2022-07-28 11:36 | PC.NURSE ---
shift assessment limited assessment performed d/t pt asleep, unable to answer questions from staff, resp even et unlabored, no s/s of distress noted.
--- NOTE | 2022-07-28 13:25 | W.PM.NPUPNS ---
Subjective NPU Subjective: Patient presented today reporting that he did take the Invega injection and plans on being compliant with the Invega. He reports he feels that the Seroquel is too strong. Discussed that part of that is likely due to how long he has been non adherent to medication. We discussed the risks midden alternatives to restarting the Seroquel at 50 mg at night and titrate to effect and having the Depakote be 500 mg at night and see how he does and he understood and agreed proceed with this plan. He did begin speaking himself as soon as I left the room. Mental Status Exam MSE Comments: This is a overweight but well-developed white male in hospital scrubs with adequate grooming and no eye contact. No abnormal movements except for some psychomotor agitation seen after the conversation as he walked around speaking to himself. More cooperative with exam in mild distress. Speech slightly increased rate and normal volume. Mood described as little better, affect congruent. Thought process was linear and mostly organized. Thought content: Patient denies suicidal or homicidal ideations, no delusions reported but paranoid and persecutory delusions noted and does appear to be attending to internal stimuli speaking to himself. Attention and concentration appear intact and memory appeared unreliable but none were formally tested. Insight, judgment, and impulse control are all impaired. Vitals/I&O/Wt Last Vital Signs Temp 97.8 F 07/27/22 14:00 Pulse 96 07/27/22 14:00 Resp 16 07/28/22 06:00 BP 130/89 07/27/22 14:00 Pulse Ox 96 07/27/22 14:00 O2 Del Method 07/27/22 14:00 Weight last 48 hrs Weight 90.718 kg Data NPU : 07/26/22 21:10 07/26/22 21:10 A&P Assessment and plan (1) Chronic schizophrenia: (2) Acute psychosis: (3) Schizoaffective disorder, bipolar type: (4) Methamphetamine dependence: Plan Patient is a 47-year-old, white male, well known to this system with a long history of psychosis, some past cannabis use, with history of long hospitalizations secondary to being off of medication and/or sometimes concerns for active addiction, but many times just purely psychotic secondary to his organic disease, who presents non adherent to medications. RECOMMENDATION AND PLAN: 1.? Continue current medication. Restart seroquel 50 mg p.o. nightly and depakote 500 mg p.o. nightly. 2.? Encourage individual, group, and milieu therapy. 3.? Continue q-15 minute checks for safety. 4.? Give Invega Sustenna injection with likely plan for a 21-day hold. Involuntary Hold Information 96 Hour Hold: 96 Hour Involuntary Admission: Yes 96 Hour Hold Ending Date: 08/02/22 96 Hour Hold Ending Time: 01:55 Attestations NPU Medical Necessity Statement*: Psychiatric hospitalization is medically necessary to prevent access to lethal means, to reevaluate medication, and to coordinate a safe discharge. Likely length of stay is 7-10 days. Coding Level of Care Code Acute Psychology Intern for Brian Beltran Diagnoses Chronic schizophrenia F20.9 Acute psychosis F23 Schizoaffective disorder, bipolar type F25.0 Methamphetamine dependence F15.20
[2022-07-28 14:00] VITALS: BP 110/73; PULSE 122; RESP 16; TEMP 36.8; O2SAT 99
[2022-07-28] MEDS: nicotine 2 mg Gum BUCCAL ×2 (17:37→20:50)
[2022-07-28] MEDS: divalproex DR 500 mg Tablet PO (21:15)
[2022-07-28] MEDS: quetiapine 25 mg Tablet 50 MG PO (21:15)
--- NOTE | 2022-07-28 21:15 | PC.NURSE ---
Patient mood irritable. Attempted to assess patient but he stated No is my answer to all of your questions. Refused VS and physical assessment of lungs and bowels. When attempting to administer HS meds patient became very paranoid with this technical writer and editor. Requested that other RN give him his medication. Stated I know Jostin knows what he's doing and I don't think you know what your doing. You might give me the wrong medication. Medication given by other RN without difficulty. Patient returned to room.
[2022-07-28 22:00] VITALS: BP 110/73; PULSE 122; RESP 16; TEMP 36.8; O2SAT 99
[2022-07-29 06:00] VITALS: RESP 19
--- NOTE | 2022-07-29 08:28 | PC.NURSE ---
SHIFT ASSESSMENT DENIES SI/HI/AVH...PLEASANT WITH STAFF INTERACTION, THIS NURSE ASKED IF I COULD DO ANYTHING FOR PATIENT AT THIS TIME, PT REPLIED JUST PRAY FOR ME
[2022-07-29] MEDS: nicotine 2 mg Gum BUCCAL ×2 (13:16→16:16)
[2022-07-29 14:00] VITALS: RESP 18
--- NOTE | 2022-07-29 16:19 | P.NPUPN_ITS ---
Subjective NPU Subjective: Patient presented today reporting that he was feeling better. He reports that the 50 mg of Seroquel and 500 mg of Depakote at night felt much more reasonable and is not feeling overmedicated or drug. He reported feeling very rested and calm and requested to shave which we agreed to do. Reports eating and sleeping well. Mental Status Exam MSE Comments: This is a overweight but well-developed white male in hospital scrubs with adequate grooming and improving eye contact. No abnormal movements except for mild psychomotor retardation. Cooperative with exam in no acute distress. Speech slightly decreased rate and normal volume. Mood described as little better, affect congruent. Thought process was more organized. Thought content: Patient denies suicidal or homicidal ideations, no delusions reported but less notable paranoid and persecutory delusions noted and does occasionally appear to be attending to internal stimuli with less speaking to himself. Attention and concentration appear intact and memory appeared unreliable but none were formally tested. Insight, judgment, and impulse control are all impaired. Vitals/I&O/Wt Last Vital Signs Temp 98.3 F 07/28/22 22:00 Pulse 122 H 07/28/22 22:00 Resp 18 07/29/22 19:51 BP 110/73 07/28/22 22:00 Pulse Ox 99 07/28/22 22:00 O2 Del Method 07/28/22 22:00 Weight last 48 hrs Weight 91.807 kg Data NPU : 07/26/22 21:10 07/26/22 21:10 A&P Assessment and plan (1) Chronic schizophrenia: (2) Acute psychosis: (3) Schizoaffective disorder, bipolar type: (4) Methamphetamine dependence: Plan Patient is a 47-year-old, white male, well known to this system with a long history of psychosis, some past cannabis use, with history of long hospitalizations secondary to being off of medication and/or sometimes concerns for active addiction, but many times just purely psychotic secondary to his organic disease, who presents non adherent to medications. RECOMMENDATION AND PLAN: 1.? Continue current medication. Restarted seroquel 50 mg p.o. nightly and dep akote 500 mg p.o. nightly. 2.? Encourage individual, group, and milieu therapy. 3.? Continue q-15 minute checks for safety. 4.? Give Invega Sustenna injection with likely plan for a 21-day hold. May need to increase his Invega Sustenna if it is wearing off versus him getting the dose late. We will evaluate. Involuntary Hold Information 96 Hour Hold: 96 Hour Involuntary Admission: Yes 96 Hour Hold Ending Date: 08/02/22 96 Hour Hold Ending Time: 01:55 Attestations NPU Medical Necessity Statement*: Inpatient hospitalization is medically necessary and the clinically appropriate intervention at this time. We will monitor medications and make changes as indicated. Likely length of stay 6-9 days. Coding Level of Care Code Acute [employer] Operator for g Fwd Diagnoses Chronic schizophrenia F20.9 Acute psychosis F23 Schizoaffective disorder, bipolar type F25.0 Methamphetamine dependence F15.20
[2022-07-29] MEDS: divalproex DR 500 mg Tablet PO (19:41)
[2022-07-29] MEDS: quetiapine 25 mg Tablet 50 MG PO (19:41)
[2022-07-29 19:51] VITALS: RESP 18
[2022-07-30] MEDS: nicotine 2 mg Gum BUCCAL (04:29)
[2022-07-30 06:00] VITALS: RESP 18
--- NOTE | 2022-07-30 09:14 | W.PM.NPUPNS ---
Subjective NPU Subjective: Patient presents today reporting he is feeling better. He feels that the Seroquel 50 mg p.o. nightly is a perfect dose for now and then trying to restart at what he was previously taking was too much and he felt it was too much then. He reports that his assist with sleep and he does not feel groggy and he feels more stable on it. He reports that the 5 mg of Depakote at night is good right now. He is still resistant to his guardian's desire and plan for placement biology that he needs to go somewhere and likely has limited insight into the benefits that some residential treatment facility might have because of the loss of freedom he is so focused on. We discussed the need to work with his guardian and the treatment team to find appropriate follow-up and that Dr. Kaye would be here tomorrow to continue this plan. Mental Status Exam MSE Comments: This is a overweight but well-developed white male in hospital scrubs with adequate grooming and improving eye contact. No abnormal movements except for mild psychomotor retardation. Cooperative with exam in no acute distress. Speech slightly decreased rate and normal volume. Mood described as little better, affect congruent. Thought process was more organized. Thought content: Patient denies suicidal or homicidal ideations, no delusions reported but less notable paranoid and persecutory delusions noted and does occasionally appear to be attending to internal stimuli with less speaking to himself. Attention and concentration appear intact and memory appeared unreliable but none were formally tested. Insight, judgment, and impulse control are all impaired, but with notable improvement. Vitals/I&O/Wt Last Vital Signs Temp 98.3 F 07/28/22 22:00 Pulse 122 H 07/28/22 22:00 Resp 18 07/29/22 19:51 BP 110/73 07/28/22 22:00 Pulse Ox 99 07/28/22 22:00 O2 Del Method 07/28/22 22:00 Weight last 48 hrs Weight 91.807 kg Data NPU : 07/26/22 21:10 07/26/22 21:10 A&P Assessment and plan (1) Chronic schizophrenia: (2) Acute psychosis: (3) Schizoaffective disorder, bipolar type: (4) Methamphetamine dependence: Plan Patient is a 47-year-old, white male, well known to this system with a long history of psychosis, some past cannabis use, with history of long hospitalizations secondary to being off of medication and/or sometimes concerns for active addiction, but many times just purely psychotic secondary to his organic disease, who presents non adherent to medications. RECOMMENDATION AND PLAN: 1.? Continue current medication. Restarted seroquel 50 mg p.o. nightly and depakote 500 mg p.o. nightly. 2.? Encourage individual, group, and milieu therapy. 3.? Continue q-15 minute checks for safety. 4.? Gave Invega Sustenna injection 156 mg IM 07/27/2022 with likely plan for a 21-day hold. May need to increase his Invega Sustenna if it is wearing off versus him getting the dose late. We will evaluate. Involuntary Hold Information 96 Hour Hold: 96 Hour Involuntary Admission: Yes 96 Hour Hold Ending Date: 08/02/22 96 Hour Hold Ending Time: 01:55 Attestations NPU Medical Necessity Statement*: Inpatient hospitalization is medically necessary and the clinically appropriate intervention at this time. We will monitor medications and make changes as indicated. Likely length of stay 5-8 days. Coding Level of Care Code Acute Health Psychologist for Sulyg Fwd Diagnoses Chronic schizophrenia F20.9 Acute psychosis F23 Schizoaffective disorder, bipolar type F25.0 Methamphetamine dependence F15.20
[2022-07-30 13:34] VITALS: RESP 18
[2022-07-30] MEDS: quetiapine 25 mg Tablet 50 MG PO (19:33)
[2022-07-30] MEDS: divalproex DR 500 mg Tablet PO (19:33)
[2022-07-31 06:00] VITALS: BP 135/85; PULSE 106; RESP 18; TEMP 36.5; O2SAT 96
[2022-07-31] MEDS: nicotine 2 mg Gum BUCCAL ×4 (10:59→22:52)
[2022-07-31 13:57] VITALS: RESP 18
--- NOTE | 2022-07-31 16:35 | W.PM.NPUPNS ---
Subjective NPU Subjective: Patient is a 47-year-old white male with schizophrenia admitted with worsening psychosis. He continued to isolate himself on the milieu. He had restarted his Depakote and stated that he needed to have a new placement. He reports that he had failed in his attempt to live without support over the past year. He reports that he has a monthly shot that helps him and reports that the Seroquel had helped him with his sleep. He had expressed concern that he would lose his ability to be free if he was put into a residential treatment facility. He had reported at times being distracted by his thoughts. Mental Status Exam MSE Comments: This is a overweight but well-developed white male in hospital scrubs with adequate grooming and improving eye contact. No abnormal movements except for mild psychomotor retardation. Cooperative with exam in no acute distress. Speech is monotone. Mood described as allright, affect is mood incongruent and blunted. Thought process was more organized. Thought content: Patient denies suicidal or homicidal ideations, but continued paranoid and persecutory delusions noted. He did appear to be responding to internal stimuli. Attention and concentration appear intact and memory appeared unreliable but none were formally tested. Insight, judgment, and impulse control are all impaired, but with notable improvement. Vitals/I&O/Wt Last Vital Signs Temp 97.7 F 07/31/22 06:00 Pulse 106 H 07/31/22 06:00 Resp 18 07/31/22 13:57 BP 135/85 07/31/22 06:00 Pulse Ox 96 07/31/22 06:00 O2 Del Method 07/31/22 06:00 Weight last 48 hrs Weight 91.807 kg Data NPU : 07/26/22 21:10 07/26/22 21:10 A&P Assessment and plan (1) Chronic schizophrenia: (2) Acute psychosis: (3) Schizoaffective disorder, bipolar type: (4) Methamphetamine dependence: Plan Patient is a 47-year-old, white male, well known to this system with a long history of psychosis, some past cannabis use, with history of long hospitalizations secondary to being off of medication and/or sometimes concerns for active addiction, but many times just purely psychotic secondary to his organic disease, who presents non adherent to medications. RECOMMENDATION AND PLAN: 1.? Continue current medication. Restarted seroquel 50 mg p.o. nightly and depakote 500 mg p.o. nightly. 2.? Encourage individual, group, and milieu therapy. 3.? Continue q-15 minute checks for safety. 4.? Gave Invega Sustenna injection 156 mg IM 07/27/2022 with likely plan for a 21-day hold. The patient's invega sustenna likely needing increase to 234mg IM in august, until that time may be necessary to supplement invega oral 3mg. Involuntary Hold Information 96 Hour Hold: 96 Hour Involuntary Admission: Yes 96 Hour Hold Ending Date: 08/02/22 96 Hour Hold Ending Time: 01:55 Attestations NPU Medical Necessity Statement*: Inpatient hospitalization is medically necessary and the clinically appropriate intervention at this time. We will monitor medications and make changes as indicated. Likely length of stay 5-8 days. Coding Level of Care Code Established Pt Acute Chemical Waste Management Technician for Sulyg Fwd Patient Type Established History Problem Focused Exam Problem Focused Medical Decision Making Straight Forward Diagnoses Chronic schizophrenia F20.9 Acute psychosis F23 Schizoaffective disorder, bipolar type F25.0 Methamphetamine dependence F15.20
[2022-07-31] MEDS: quetiapine 25 mg Tablet 50 MG PO (19:32)
[2022-07-31] MEDS: divalproex DR 500 mg Tablet PO (19:33)
[2022-08-01 06:00] VITALS: RESP 18
[2022-08-01] MEDS: nicotine 2 mg Gum BUCCAL ×3 (09:32→19:11)
[2022-08-01 14:00] VITALS: BP 138/86; PULSE 116; RESP 18; TEMP 36.6; O2SAT 98
--- NOTE | 2022-08-01 15:32 | W.PM.NPUPNS ---
Subjective NPU Subjective: Patient is a 47-year-old white male with schizophrenia admitted with worsening psychosis. Patient had continued to pace throughout the night and states that he has been trying to lose weight by walking throughout the milieu. He reports that he did not frequently need much sleep. He states that he had slept 3 to 4 hours. He reports that he has been able to control his thoughts but remains somewhat guarded when asked about what had brought him into the hospital. The patient had reported that Depakote and Seroquel had been helpful for him although he was not able to recall when he had taken Depakote or Seroquel on an outpatient basis. Patient continued to appear confused and reported that his thoughts were for him and for him alone. Mental Status Exam MSE Comments: This is a overweight but well-developed white male in hospital scrubs with adequate grooming and improving eye contact. No abnormal movements except for mild psychomotor retardation. Cooperative with exam in no acute distress. Speech is monotone in quality, slow in rate. Mood described as okay, His affect is mood incongruent and blunted. Thought process was linear but superficial. . Thought content: Patient denies suicidal or homicidal ideations, but continued paranoid and persecutory delusions noted. He did appear to be responding to internal stimuli at times. Attention and concentration appear poor and memory appeared unreliable but none were formally tested. Insight, judgment, and impulse control are all impaired currently. Vitals/I&O/Wt Last Vital Signs Temp 97.7 F 07/31/22 06:00 Pulse 106 H 07/31/22 06:00 Resp 18 08/01/22 06:00 BP 135/85 07/31/22 06:00 Pulse Ox 96 07/31/22 06:00 O2 Del Method 07/31/22 06:00 Data NPU : 07/26/22 21:10 07/26/22 21:10 A&P Assessment and plan (1) Chronic schizophrenia: (2) Acute psychosis: (3) Schizoaffective disorder, bipolar type: (4) Methamphetamine dependence: Plan Patient is a 47-year-old, white male, well known to this system with a long history of psychosis, some past cannabis use, with history of long hospitalizations secondary to being off of medication and/or sometimes concerns for active addiction, but many times just purely psychotic secondary to his organic disease, who presents non adherent to medications. RECOMMENDATION AND PLAN: 1.? Continue current medication. Increase seroquel to 200mg at night and depakote 500 mg p.o. nightly. 2.? Encourage individual, group, and milieu therapy. 3.? Continue q-15 minute checks for safety. 4.? Gave Invega Sustenna injection 156 mg IM 07/27/2022 with likely plan for a 21-day hold. The patient's invega sustenna likely needing increase to 234mg IM in august, until that time may be necessary to supplement invega oral 3mg. Involuntary Hold Information 96 Hour Hold: 96 Hour Involuntary Admission: Yes 96 Hour Hold Ending Date: 08/02/22 96 Hour Hold Ending Time: 01:55 Attestations NPU Medical Necessity Statement*: Inpatient hospitalization is medically necessary and the clinically appropriate intervention at this time. We will monitor medications and make changes as indicated. Likely length of stay 5-8 days. Coding Level of Care Code Established Pt Acute Browning Processor for Brian Beltran Patient Type Established History Problem Focused Exam Problem Focused Medical Decision Making Straight Forward Diagnoses Chronic schizophrenia F20.9 Acute psychosis F23 Schizoaffective disorder, bipolar type F25.0 Methamphetamine dependence F15.20
--- NOTE | 2022-08-01 19:59 | PC.NURSE ---
pt refused to take over 150mg of seroquel. pt states all he takes is 50mg and that 200mg could kill a person. I administered 50mg of seroquel and will waste the 150mg. pt yelling at staff stating that he slept 3-4 hours last night so staff lied when they said he was up all night pacing and that he slept all day that is why he was up last night.. attempt to explain to patient that 75 % of the night is what was documented that he was up. pt states well you lied and said i was pacing and i wasnt i was walking to loose weight and if you got up and walked some you would loose weight to .
[2022-08-01] MEDS: quetiapine 25 mg Tablet 200 MG PO (20:11)
--- NOTE | 2022-08-01 20:30 | PC.NURSE ---
pt states he will take 100mg of seroquel instead of 200mg. pt states he prayed about and feels that god told him that it would be ok to take that amount. he states he start taking them tomorrow night.
[2022-08-01] MEDS: divalproex DR 500 mg Tablet PO (22:21)
[2022-08-02] MEDS: nicotine 2 mg Gum BUCCAL ×5 (04:23→21:03)
--- NOTE | 2022-08-02 04:24 | PC.NURSE ---
pt came to nurses desk asking for nicotine gum stated he finally slept off his 50mg of seroquel to please chart that. he said he would still take the 100mg seroquel tonight.
[2022-08-02 06:00] VITALS: RESP 18
--- NOTE | 2022-08-02 06:50 | PC.NURSE ---
pt resting with eyes closed .obtained respiration
[2022-08-02 14:00] VITALS: BP 120/84; PULSE 123; RESP 18; O2SAT 96
--- NOTE | 2022-08-02 14:50 | P.NPUPN_ITS ---
Subjective NPU Subjective: Patient is a 47-year-old white male with schizophrenia admitted with worsening psychosis. And had continued to report that he had wanted to go to a residential treatment facility. He reports that he had tried living independently and had failed and would not be able to succeed in a program like that in the immediate future. He had been compliant with his medications. He continued to pace on the milieu. He reported that he refused his Seroquel 200 mg stating that it felt like it was too much. He continued to isolate himself from others on the milieu. The patient had described a previous history of great physical activity in the past but reports that he had lacked motivation and energy recently. Mental Status Exam MSE Comments: This is a overweight but well-developed white male in hospital scrubs with adequate grooming and improving eye contact. No abnormal movements except for mild psychomotor retardation. Cooperative with exam in no acute distress. Speech is monotone in quality, slow in rate. Mood described as allright, His affect is mood incongruent and blunted. Thought process was linear but superficial. Thought content: Patient denies suicidal or homicidal ideation, but continued paranoid and persecutory delusions noted. He did appear to be responding to internal stimuli at times. Attention and concentration appear poor and memory appeared unreliable but none were formally tested. Insight, judgment, and impulse control are all impaired currently. Vitals/I&O/Wt Last Vital Signs Temp 97.8 F 08/01/22 14:00 Pulse 116 H 08/01/22 14:00 Resp 18 08/02/22 06:00 BP 138/86 08/01/22 14:00 Pulse Ox 98 08/01/22 14:00 O2 Del Method 07/31/22 06:00 Data NPU : 07/26/22 21:10 07/26/22 21:10 A&P Assessment and plan (1) Chronic schizophrenia: (2) Acute psychosis: (3) Schizoaffective disorder, bipolar type: (4) Methamphetamine dependence: Plan Patient is a 47-year-old, white male, well known to this system with a long history of psychosis, some past cannabis use, with history of long hospitalizations secondary to being off of medication and/or sometimes concerns for active addiction, but many times just purely psychotic secondary to his organic disease, who presents non adherent to medications. RECOMMENDATION AND PLAN: 1.? Continue current medication. Decrease seroquel to 100mg at night and increase depakote 500 mg p.o. bid nightly to target psychosis. 2.? Encourage individual, group, and milieu therapy. 3.? Continue q-15 minute checks for safety. 4.? Gave Invega Sustenna injection 156 mg IM 07/27/2022 with likely plan for a 21-day hold. The patient's invega sustenna likely needing increase to 234mg IM in august, until that time may be necessary to supplement invega oral 3mg. Involuntary Hold Information 96 Hour Hold: 96 Hour Involuntary Admission: Yes 96 Hour Hold Ending Date: 08/02/22 96 Hour Hold Ending Time: 01:55 Attestations NPU Medical Necessity Statement*: Inpatient hospitalization is medically necessary and the clinically appropriate intervention at this time. We will monitor medications and make changes as indicated. Likely length of stay 5-8 days. Coding Level of Care Code Established Pt Acute Provider Relations Representative for Brian Beltran Patient Type Established History Problem Focused Exam Problem Focused Medical Decision Making Straight Forward Diagnoses Chronic schizophrenia F20.9 Acute psychosis F23 Schizoaffective disorder, bipolar type F25.0 Methamphetamine dependence F15.20
[2022-08-02] MEDS: divalproex DR 500 mg Tablet PO (18:02)
[2022-08-02] MEDS: quetiapine 100 mg Tablet PO (21:04)
[2022-08-03] MEDS: nicotine 2 mg Gum BUCCAL ×3 (03:46→18:21)
[2022-08-03] MEDS: divalproex DR 500 mg Tablet PO (09:03)
[2022-08-03 14:00] VITALS: RESP 18
--- NOTE | 2022-08-03 18:24 | PC.NURSE ---
Pt refused evening dose of Depakote 500mg. Pt stated that the doctor is lying to him about his medications.
--- NOTE | 2022-08-03 20:06 | P.NPUPN_ITS ---
Subjective NPU Subjective: Patient is a 47-year-old white male with schizophrenia admitted with worsening psychosis. The patient had called the commercial underwriter of this note a liar stating that he did not want any more Depakote twice a day and stated that the commercial underwriter of the noted deceived him. The patient had reported that he knew that the commercial underwriter of this note wished to keep him here forever despite this, he continued to remain optimistic about the need to be placed in a residential treatment facility as he states that he could not manage his own care any further. He had reported no sleep disturbance when taking his Seroquel 100 mg at night. He continued to spend excessive amounts of time pacing the hallway while engaging in some limited fashion with other people on the unit. y. Mental Status Exam MSE Comments: This is a overweight but well-developed white male in hospital scrubs with adequate grooming and improving eye contact. No abnormal movements except for mild psychomotor retardation. Cooperative with exam in no acute distress. Speech is monotone in quality, normal in rate and rhythm.. Mood described as upset, His affect is mood incongruent and blunted. Thought process was nonlinear. Thought content: Patient denies suicidal or homicidal ideation, but continued paranoid and persecutory delusions noted. He did not appear to be responding to internal stimuli. Attention and concentration appear poor. His memory appeared unreliable but none were formally tested. Insight, judgment, and impulse control are all impaired currently. Vitals/I&O/Wt Last Vital Signs Temp 97.8 F 08/01/22 14:00 Pulse 123 H 08/02/22 14:00 Resp 18 08/03/22 14:00 BP 120/84 08/02/22 14:00 Pulse Ox 96 08/02/22 14:00 O2 Del Method 07/31/22 06:00 Data NPU : 07/26/22 21:10 07/26/22 21:10 A&P Assessment and plan (1) Chronic schizophrenia: (2) Acute psychosis: (3) Schizoaffective disorder, bipolar type: (4) Methamphetamine dependence: Plan Patient is a 47-year-old, white male, well known to this system with a long history of psychosis, some past cannabis use, with history of long hospitalizations secondary to being off of medication and/or sometimes concerns for active addiction, but many times just purely psychotic secondary to his organic disease, who presents non adherent to medications. RECOMMENDATION AND PLAN: 1.? Continue current medication. Discontinue Depakote delayed release and began Depakote extended release 500 mg in the morning tomorrow. Continue Seroquel 100 mg at night 2.? Encourage individual, group, and milieu therapy. 3.? Continue q-15 minute checks for safety. 4.? Gave Invega Sustenna injection 156 mg IM 07/27/2022 with likely plan for a 21-day hold. The patient's invega sustenna likely needing increase to 234mg IM in august, until that time may be necessary to supplement invega oral 3mg. Involuntary Hold Information 96 Hour Hold: 96 Hour Involuntary Admission: Yes 96 Hour Hold Ending Date: 08/02/22 96 Hour Hold Ending Time: 01:55 Attestations NPU Medical Necessity Statement*: Inpatient hospitalization is medically necessary and the clinically appropriate intervention at this time. We will monitor medications and make changes as indicated. Likely length of stay 5-8 days. Coding Level of Care Code Established Pt Acute Application Integration Architect for Brian Beltran Patient Type Established History Problem Focused Exam Problem Focused Medical Decision Making Straight Forward Diagnoses Chronic schizophrenia F20.9 Acute psychosis F23 Schizoaffective disorder, bipolar type F25.0 Methamphetamine dependence F15.20
[2022-08-03] MEDS: quetiapine 25 mg Tablet 100 MG PO (21:31)
[2022-08-04] MEDS: nicotine 2 mg Gum BUCCAL ×3 (05:10→14:28)
--- NOTE | 2022-08-04 06:26 | PC.NURSE ---
pt refused AM vitals
[2022-08-04 14:00] VITALS: RESP 18
--- NOTE | 2022-08-04 17:05 | P.NPUPN_ITS ---
Subjective NPU Subjective: Patient is a 47-year-old white male with schizophrenia admitted with worsening psychosis and an inability to manage self care. Patient continued to pace the hallway. He reported that he was doing better. He had stated that he had some stomach problems. He reported having slept well. He gregory d reported that he was unable to care for himself and had struggled with living independently. Patient had continued to report that he had clear ideas about how he could help himself and was choosing to keep it hidden from the securities underwriter of this note. He reports no thoughts of hurting himself or others at this time. Mental Status Exam MSE Comments: This is a overweight but well-developed white male in hospital scrubs with adequate grooming and improving eye contact. No abnormal movements except for mild psychomotor retardation. He was pacing steadily through the hallway. He was cooperative with exam in no acute distress. Speech is monotone in quality, normal in rate and rhythm. Mood described as better. His affect is mood incongruent and blunted. Thought process was linear. Thought content: Patient denies suicidal or homicidal ideation, but continued paranoid and persecutory delusions noted. He did not appear to be responding to internal stimuli. Attention and concentration appear poor. His memory appeared unreliable but none were formally tested. Insight, judgment, and impulse control are all impaired currently. Vitals/I&O/Wt Last Vital Signs Temp 97.8 F 08/01/22 14:00 Pulse 123 H 08/02/22 14:00 Resp 18 08/04/22 14:00 BP 120/84 08/02/22 14:00 Pulse Ox 96 08/02/22 14:00 O2 Del Method 07/31/22 06:00 Data NPU : 07/26/22 21:10 07/26/22 21:10 A&P Assessment and plan (1) Chronic schizophrenia: (2) Acute psychosis: (3) Schizoaffective disorder, bipolar type: (4) Methamphetamine dependence: Plan Patient is a 47-year-old, white male, well known to this system with a long history of psychosis, some past cannabis use, with history of long hospitalizations secondary to being off of medication and/or sometimes concerns for active addiction, but many times just purely psychotic secondary to his organic disease, who presents non adherent to medications. RECOMMENDATION AND PLAN: 1.? Continue current medication. Discontinue Depakote delayed release and began Depakote extended release 500 mg in the morning. Continue Seroquel 100 mg at night 2.? Encourage individual, group, and milieu therapy. 3.? Continue q-15 minute checks for safety. 4.? Gave Invega Sustenna injection 156 mg IM 07/27/2022 with likely plan for a 21-day hold. The patient's invega sustenna likely needing increase to 234mg IM in august, until that time may be necessary to supplement invega oral 3mg, patient refusing at this time. Seeking supervised living with medication assistance. Involuntary Hold Information 96 Hour Hold: 96 Hour Involuntary Admission: Yes 96 Hour Hold Ending Date: 08/02/22 96 Hour Hold Ending Time: 01:55 Attestations NPU Medical Necessity Statement*: Inpatient hospitalization is medically necessary and the clinically appropriate intervention at this time. We will monitor medications and make changes as indicated. Likely length of stay 5-8 days. Coding Level of Care Code Established Pt Acute Marketing Trainee for Brian Beltran Patient Type Established History Problem Focused Exam Problem Focused Medical Decision Making Straight Forward Diagnoses Chronic schizophrenia F20.9 Acute psychosis F23 Schizoaffective disorder, bipolar type F25.0 Methamphetamine dependence F15.20
[2022-08-04 20:06] VITALS: RESP 18
[2022-08-05 06:00] VITALS: RESP 18
[2022-08-05] MEDS: nicotine 2 mg Gum BUCCAL ×3 (08:34→18:27)
[2022-08-05] MEDS: divalproex ER 500 mg Tablet (24H) PO (10:00)
[2022-08-05 13:33] VITALS: RESP 17
--- NOTE | 2022-08-05 13:33 | W.PM.NPUPNS ---
Subjective NPU Subjective: Patient is a 47-year-old white male with schizophrenia admitted with worsening psychosis and an inability to manage self care. Patient had reported that he wished to live in an RTF upon discharge. He stated that he felt that he was doing better. He had been more compliant with the medication regimen today with no reports of refusal for Depakote. He continued to spend time pacing the hallways and reported that he needs the exercise. Patient reported no side effects from his medications. He denied any auditory hallucinations. He reported he reported that he was doing better. Despite this, patient continued to have open conversations on the unit with no one around him. Mental Status Exam MSE Comments: This is a overweight but well-developed white male in hospital scrubs with adequate grooming and improving eye contact. No abnormal movements except for mild psychomotor retardation. He was pacing steadily through the hallway talking to himself. He was cooperative with exam in no acute distress. Speech is monotone in quality, normal in rate and rhythm. Mood described as better. His affect is mood incongruent and blunted. Thought process was linear. Thought content: Patient denies suicidal or homicidal ideation, but continued paranoid and persecutory delusions noted. He did appear to be responding to internal stimuli. Attention and concentration appear poor. His memory appeared unreliable but none were formally tested. Insight, judgment, and impulse control are all impaired currently. Vitals/I&O/Wt Last Vital Signs Temp 97.8 F 08/01/22 14:00 Pulse 123 H 08/02/22 14:00 Resp 18 08/05/22 06:00 BP 120/84 08/02/22 14:00 Pulse Ox 96 08/02/22 14:00 O2 Del Method 07/31/22 06:00 Data NPU : 07/26/22 21:10 07/26/22 21:10 A&P Assessment and plan (1) Chronic schizophrenia: (2) Acute psychosis: (3) Schizoaffective disorder, bipolar type: (4) Methamphetamine dependence: Plan Patient is a 47-year-old, white male, well known to this system with a long history of psychosis, some past cannabis use, with history of long hospitalizations secondary to being off of medication and/or sometimes concerns for active addiction, but many times just purely psychotic secondary to his organic disease, who presents non adherent to medications. RECOMMENDATION AND PLAN: 1.? Continue current medication. Discontinue Depakote delayed release and began Depakote extended release 500 mg in the morning. Continue Seroquel 100 mg at night 2.? Encourage individual, group, and milieu therapy. 3.? Continue q-15 minute checks for safety. 4.? Gave Invega Sustenna injection 156 mg IM 07/27/2022 with likely plan for a 21-day hold. The patient's invega sustenna likely needing increase to 234mg IM in august, until that time may be necessary to supplement invega oral 3mg, patient refusing at this time. Seeking supervised living with medication assistance. Involuntary Hold Information 96 Hour Hold: 96 Hour Involuntary Admission: Yes 96 Hour Hold Ending Date: 08/02/22 96 Hour Hold Ending Time: 01:55 Attestations NPU Medical Necessity Statement*: Inpatient hospitalization is medically necessary and the clinically appropriate intervention at this time. We will monitor medications and make changes as indicated. Likely length of stay 5-8 days. Coding Level of Care Code Established Pt Acute Household Appliances Service Technician for Brian Beltran Patient Type Established History Problem Focused Exam Problem Focused Medical Decision Making Straight Forward Diagnoses Chronic schizophrenia F20.9 Acute psychosis F23 Schizoaffective disorder, bipolar type F25.0 Methamphetamine dependence F15.20
[2022-08-05 20:06] VITALS: RESP 18
[2022-08-05] MEDS: quetiapine 25 mg Tablet 100 MG PO (20:15)
[2022-08-06 06:00] VITALS: RESP 16
[2022-08-06] MEDS: divalproex ER 500 mg Tablet (24H) PO (08:03)
[2022-08-06] MEDS: nicotine 2 mg Gum BUCCAL ×2 (10:16→16:23)
--- NOTE | 2022-08-06 12:25 | PC.NURSE ---
PATIENT BEHAVIORS Patient requesting to go through all of his belongings. Patient began screaming at nurses and CNAs that they had stolen clothing and money from him. Security was called to be on standby. He then began yelling that a SETTER [employer]ING [employer] and the senior it security analyst were doing drugs and sleeping together. Patient verbally redirected and calmed down to eat lunch. Patient still making passing comments under his breath that we are all lying and stealing.
[2022-08-06 14:00] VITALS: RESP 18
--- NOTE | 2022-08-06 14:36 | P.NPUPN_ITS ---
Subjective NPU Subjective: Patient is a 47-year-old white male with schizophrenia admitted with worsening psychosis and an inability to manage self care. Patient had reported that he wished to live in an RTF upon discharge. He stated that he felt that he was doing better. He continued to appear more paranoid stating that he did not like the look of particular pills and reported that he preferred to received his Seroquel as 4 tablets of 25 mg instead of 1 tablet of 100 mg. He had also reported that he liked the blue Depakote instead of the white Depakote. He continue to engage in long extended conversations with himself while walking incessantly on the milieu. Mental Status Exam MSE Comments: This is a well-developed white male in hospital scrubs with adequate grooming and improving eye contact. No abnormal involuntary motor movements tics or tremors were appreciated. He was pacing steadily through the hallway talking to himself. He was cooperative with exam in no acute distress. Speech is monotone in quality, normal in rate and rhythm. Mood described as better. His affect is mood incongruent and blunted. Thought process was linear. Thought content: Patient denies suicidal or homicidal ideation, but continued paranoid and persecutory delusions noted. He did appear to be responding to internal stimuli. Attention and concentration appear poor. His memory appeared unreliable but none were formally tested. Insight, judgment, and impulse control are all impaired currently. Vitals/I&O/Wt Last Vital Signs Temp 97.8 F 08/01/22 14:00 Pulse 123 H 08/02/22 14:00 Resp 16 08/06/22 06:00 BP 120/84 08/02/22 14:00 Pulse Ox 96 08/02/22 14:00 O2 Del Method 07/31/22 06:00 Weight last 48 hrs Weight 92.533 kg Data NPU : 07/26/22 21:10 07/26/22 21:10 A&P Assessment and plan (1) Chronic schizophrenia: (2) Acute psychosis: (3) Schizoaffective disorder, bipolar type: (4) Methamphetamine dependence: Plan Patient is a 47-year-old, white male, well known to this system with a long history of psychosis, some past cannabis use, with history of long hospitalizations secondary to being off of medication and/or sometimes concerns for active addiction, but many times just purely psychotic secondary to his orga kelli disease, who presents non adherent to medications. RECOMMENDATION AND PLAN: 1.? Continue current medication. Continue Depakote extended release 500 mg in the morning. Continue Seroquel 100 mg at night 2.? Encourage individual, group, and milieu therapy. 3.? Continue q-15 minute checks for safety. 4.? Gave Invega Sustenna injection 156 mg IM 07/27/2022 with likely plan for a 21-day hold. The patient's invega sustenna likely needing increase to 234mg IM in august, until that time may be necessary to supplement invega oral 3mg, patient refusing at this time. Seeking supervised living with medication assistance. Involuntary Hold Information 96 Hour Hold: 96 Hour Involuntary Admission: Yes 96 Hour Hold Ending Date: 08/02/22 96 Hour Hold Ending Time: 01:55 Attestations NPU Medical Necessity Statement*: Inpatient hospitalization is medically necessary and the clinically appropriate intervention at this time. We will monitor medications and make changes as indicated. Likely length of stay 5-8 days. Coding Level of Care Code Established Pt Acute Mine Superintendent for Sulyg Fwd Patient Type Established History Problem Focused Exam Problem Focused Medical Decision Making Straight Forward Diagnoses Chronic schizophrenia F20.9 Acute psychosis F23 Schizoaffective disorder, bipolar type F25.0 Methamphetamine dependence F15.20
[2022-08-06] MEDS: quetiapine 25 mg Tablet 100 MG PO (19:41)
[2022-08-07] MEDS: nicotine 2 mg Gum BUCCAL ×2 (01:14→14:02)
[2022-08-07] MEDS: divalproex ER 500 mg Tablet (24H) PO (08:11)
[2022-08-07 14:00] VITALS: RESP 18
--- NOTE | 2022-08-07 15:16 | W.PM.NPUPNS ---
Subjective NPU Subjective: Patient is a 47-year-old white male with schizophrenia admitted with worsening psychosis and an inability to manage self care. Patient had continued to appear paranoid at times on the unit as he had yelled at staff for apparently stealing my stuff . Patient had continued to pace throughout the [place] but appeared friendly and more redirectable on the milieu. Patient had reported that he liked exercising and would continue to do this on a daily basis while he was here. The patient had continued to require some prompting by staff for completion of activities of daily living. Patient reports that he continues to prefer the blue Depakote and for pills of 25 mg of Seroquel at night. The patient reports today that he has been feeling blessed by God.. Mental Status Exam MSE Comments: This is a well-developed white male in hospital scrubs with poor grooming and fleeting eye contact. No abnormal involuntary motor movements tics or tremors were appreciated. He was pacing steadily through the hallway talking to himself. He was cooperative with exam in no acute distress. Speech is monotone in quality, normal in rate and rhythm. Mood described as better. His affect is mood incongruent and blunted. Thought process was linear. Thought content: His thought content was superficial. Patient denies suicidal or homicidal ideation, but continued paranoid and persecutory delusions noted. He did appear to be responding to internal stimuli. Attention and concentration appear poor. His memory appeared unreliable but none were formally tested. Insight and judgment was poor. His impulse control was limited. Vitals/I&O/Wt Last Vital Signs Temp 97.8 F 08/01/22 14:00 Pulse 123 H 08/02/22 14:00 Resp 18 08/07/22 14:00 BP 120/84 08/02/22 14:00 Pulse Ox 96 08/02/22 14:00 O2 Del Method 07/31/22 06:00 Weight last 48 hrs Weight 92.533 kg Data NPU : 07/26/22 21:10 07/26/22 21:10 A&P Assessment and plan (1) Chronic schizophrenia: (2) Acute psychosis: (3) Schizoaffective disorder, bipolar type: (4) Methamphetamine dependence: Plan Patient is a 47-year-old, white male, well known to this system with a long history of psychosis, some past cannabis use, with history of long hospitalizations secondary to being off of medication and/or sometimes concerns for active addiction, but many times just purely psychotic secondary to his organic disease, who presents non adherent to medications. RECOMMENDATION AND PLAN: 1.? Continue current medication. Continue Depakote extended release 500 mg in the morning. Continue Seroquel 100 mg at night. 2.? Encourage individual, group, and milieu therapy. 3.? Continue q-15 minute checks for safety. 4.? Gave Invega Sustenna injection 156 mg IM 07/27/2022 with likely plan for a 21-day hold. The patient's invega sustenna likely needing increase to 234mg IM in august, until that time may be necessary to supplement invega oral 3mg, patient refusing at this time. Seeking supervised living with medication assistance. Involuntary Hold Information 96 Hour Hold: 96 Hour Involuntary Admission: Yes 96 Hour Hold Ending Date: 08/02/22 96 Hour Hold Ending Time: 01:55 Attestations NPU Medical Necessity Statement*: Inpatient hospitalization is medically necessary and the clinically appropriate intervention at this time. We will monitor medications and make changes as indicated. Likely length of stay 5-8 days. Coding Level of Care Code Established Pt Acute Scrap Preparation Supervisor for Brian Beltran Patient Type Established History Problem Focused Exam Problem Focused Medical Decision Making Straight Forward Diagnoses Chronic schizophrenia F20.9 Acute psychosis F23 Schizoaffective disorder, bipolar type F25.0 Methamphetamine dependence F15.20
[2022-08-07] MEDS: quetiapine 25 mg Tablet 100 MG PO (20:08)
[2022-08-08] MEDS: nicotine 2 mg Gum BUCCAL (01:47)
[2022-08-08] MEDS: divalproex ER 500 mg Tablet (24H) PO (08:57)
[2022-08-08 14:00] VITALS: RESP 17
--- NOTE | 2022-08-08 16:50 | P.NPUPN_ITS ---
Subjective NPU Subjective: Patient is a 47-year-old white male with schizophrenia admitted with worsening psychosis and an inability to manage self care. The patient appeared less hostile on the unit but continue to remain paranoid. He did not report feeling suspicious of others intent and stated that he apologized to the nurse for accusing her of stealing things. He had reported that he wished to enter into an art TF and understands that he would need to take his medications to avoid hospitalization. He continued to spend excessive amount of time in the milieu walking through the hallway but did not appear to be a danger to himself currently. He denied any substance use or any cravings for drugs or alcohol. He had reported adequate sleep on his current medication regimen. Mental Status Exam MSE Comments: This is a well-developed white male in hospital scrubs with poor grooming and intermittent eye contact. No abnormal involuntary motor movements tics or tremors were appreciated. He was pacing steadily through the hallway talking to himself. He was cooperative with exam in no acute distress. Speech is monotone in quality, normal in rate and rhythm. Mood described as allright. His affect is mood incongruent and blunted. Thought process was linear. Thought content: His thought content was superficial. Patient denies suicidal or homicidal ideation, but continued paranoid and persecutory delusions noted. He did appear to be responding to internal stimuli. Attention and concentration appear poor. His memory appeared unreliable but none were formally tested. Insight and judgment was poor. His impulse control was limited. Vitals/I&O/Wt Last Vital Signs Temp 97.8 F 08/01/22 14:00 Pulse 123 H 08/02/22 14:00 Resp 18 08/07/22 14:00 BP 120/84 08/02/22 14:00 Pulse Ox 96 08/02/22 14:00 O2 Del Method 07/31/22 06:00 Data NPU : 07/26/22 21:10 07/26/22 21:10 A&P Assessment and plan (1) Chronic schizophrenia: (2) Acute psychosis: (3) Schizoaffective disorder, bipolar type: (4) Methamphetamine dependence: Plan Patient is a 47-year-old, white male, well known to this system with a long history of psychosis, some past cannabis use, with history of long hospitalizations secondary to being off of medication and/or sometimes concerns for active addiction, but many times just purely psychotic secondary to his organic disease, who presents non adherent to medications. RECOMMENDATION AND PLAN: 1.? Continue current medication. Continue Depakote extended release 500 mg in the morning. Continue Seroquel 100 mg at night. 2.? Encourage individual, group, and milieu therapy. 3.? Continue q-15 minute checks for safety. 4.? Gave Invega Sustenna injection 156 mg IM 07/27/2022 with likely plan for a 21-day hold. The patient's invega sustenna likely needing increase to 234mg IM in august, until that time may be necessary to supplement invega oral 3mg, patient refusing at this time. Seeking supervised living with medication assistance/RTF. Involuntary Hold Information 96 Hour Hold: 96 Hour Involuntary Admission: Yes 96 Hour Hold Ending Date: 08/02/22 96 Hour Hold Ending Time: 01:55 Attestations NPU Medical Necessity Statement*: Inpatient hospitalization is medically necessary and the clinically appropriate intervention at this time. We will monitor medications and make changes as indicated. Likely length of stay 5-8 days. Coding Level of Care Code Established Pt Acute Running Specialist for Sulyg Fwd Patient Type Established History Problem Focused Exam Problem Focused Medical Decision Making Straight Forward Diagnoses Chronic schizophrenia F20.9 Acute psychosis F23 Schizoaffective disorder, bipolar type F25.0 Methamphetamine dependence F15.20
[2022-08-08] MEDS: quetiapine 25 mg Tablet 100 MG PO (20:28)
[2022-08-09] MEDS: divalproex ER 500 mg Tablet (24H) PO (08:25)
[2022-08-09] MEDS: nicotine 2 mg Gum BUCCAL ×2 (12:56→15:58)
[2022-08-09 14:00] VITALS: RESP 18
--- NOTE | 2022-08-09 15:40 | W.PM.NPUPNS ---
Subjective NPU Subjective: Patient is a 47-year-old white male with schizophrenia admitted with worsening psychosis and an inability to manage self care. The patient had continued evidence of psychosis on the milieu. He had remained somewhat paranoid but appeared to be having less self talk noted. He continued at times though to be having full length conversations with someone who was not present in the area. Patient when asked about the conversation became somewhat guarded and hostile. He reported adequate sleep and stated that he was doing well with his medications and reported once again God bless you . He reported his sleep is adequate. He reported no depression at this time. He states that he is willing to go to a residential treatment facility. Mental Status Exam MSE Comments: This is a well-developed white male in hospital scrubs with poor grooming and intermittent eye contact. No abnormal involuntary motor movements tics or tremors were appreciated. He was pacing steadily through the hallway talking to himself. He was cooperative with exam in no acute distress. Speech is monotone in quality, normal in rate and rhythm. Mood described as okay. His affect is mood incongruent and blunted. Thought process was linear. Thought content: His thought content was superficial. Patient denies suicidal or homicidal ideation, but continued paranoid and persecutory delusions noted. He did appear to be responding to internal stimuli. Attention and concentration appear poor. His memory appeared unreliable but none were formally tested. Insight and judgment was poor. His impulse control was limited. Vitals/I&O/Wt Last Vital Signs Temp 97.8 F 08/01/22 14:00 Pulse 123 H 08/02/22 14:00 Resp 17 08/08/22 14:00 BP 120/84 08/02/22 14:00 Pulse Ox 96 08/02/22 14:00 O2 Del Method 07/31/22 06:00 Data NPU : 07/26/22 21:10 07/26/22 21:10 A&P Assessment and plan (1) Chronic schizophrenia: (2) Acute psychosis: (3) Schizoaffective disorder, bipolar type: (4) Methamphetamine dependence: Plan Patient is a 47-year-old, white male, well known to this system with a long history of psychosis, some past cannabis use, with history of long hospitalizations secondary to being off of medication and/or sometimes concerns for active addiction, but many times just purely psychotic secondary to his organic disease, who presents non adherent to medications. RECOMMENDATION AND PLAN: 1.? Continue current medication. Continue Depakote extended release 500 mg in the morning. Continue Seroquel 100 mg at night. 2.? Encourage individual, group, and milieu therapy. 3.? Continue q-15 minute checks for safety. 4.? Gave Invega Sustenna injection 156 mg IM 07/27/2022 with likely plan for a 21-day hold. The patient's invega sustenna likely needing increase to 234mg IM in august, until that time may be necessary to supplement invega oral 3mg, patient refusing at this time. Seeking supervised living with medication assistance/RTF. Involuntary Hold Information 96 Hour Hold: 96 Hour Involuntary Admission: Yes 96 Hour Hold Ending Date: 08/02/22 96 Hour Hold Ending Time: 01:55 Attestations NPU Medical Necessity Statement*: Inpatient hospitalization is medically necessary and the clinically appropriate intervention at this time. We will monitor medications and make changes as indicated. Likely length of stay 5-8 days. Coding Level of Care Code Established Pt Acute Entry Level Accountant for Sulyg Fwd Patient Type Established History Problem Focused Exam Problem Focused Medical Decision Making Straight Forward Diagnoses Chronic schizophrenia F20.9 Acute psychosis F23 Schizoaffective disorder, bipolar type F25.0 Methamphetamine dependence F15.20
[2022-08-09 20:10] VITALS: RESP 18
[2022-08-09] MEDS: quetiapine 25 mg Tablet 100 MG PO (20:30)
[2022-08-10 06:00] VITALS: RESP 18
[2022-08-10] MEDS: divalproex ER 500 mg Tablet (24H) PO (09:02)
[2022-08-10] MEDS: nicotine 2 mg Gum BUCCAL ×2 (13:18→18:26)
--- NOTE | 2022-08-10 14:53 | PC.NURSE ---
refused vital signs, resp 20, even et nonlabored
--- NOTE | 2022-08-10 16:38 | P.NPUPN_ITS ---
Subjective NPU Subjective: Patient presents today reporting that he is looking forward to his discharge tomorrow. He endorsed having full understanding of where he was going and reporting feeling positive about the plan. He reports his medications are working well and he would like to continue taking them as currently prescribed. He endorsed liking the changes particularly the move to immediate release Depakote versus Depakote ER. Otherwise reports things have progressed well and he is appreciative of our assistance. Mental Status Exam MSE Comments: This is a well-developed white male in hospital scrubs with adequate grooming and improving eye contact. No abnormal involuntary motor movements tics or tremors were appreciated. He was pacing steadily through the hallway with less talking to himself versus our last interaction 2 days ago. He was cooperative with exam in no acute distress. Speech is monotone in quality, normal in rate and volume. Mood described as pretty good. His affect is congruent but slightly subdued. Thought process appeared organized. Thought content: Patient denies suicidal or homicidal ideation, but continued paranoid and persecutory delusions noted but less apparent/on the surface. He denied auditory or visualizations and did not appear to be responding to internal st imuli during interview but possibly at other times. Attention and concentration appeared intact. His memory appeared mostly reliable but none were formally tested. Insight and judgment was limited. His impulse control was limited, but improving. Vitals/I&O/Wt Last Vital Signs Temp 97.8 F 08/01/22 14:00 Pulse 123 H 08/02/22 14:00 Resp 18 08/10/22 06:00 BP 120/84 08/02/22 14:00 Pulse Ox 96 08/02/22 14:00 O2 Del Method 08/10/22 14:00 Data NPU : 07/26/22 21:10 07/26/22 21:10 A&P Assessment and plan (1) Chronic schizophrenia: (2) Acute psychosis: (3) Schizoaffective disorder, bipolar type: (4) Methamphetamine dependence: Plan Patient is a 47-year-old, white male, well known to this system with a long history of psychosis, some past cannabis use, with history of long hospitalizations secondary to being off of medication and/or sometimes concerns for active addiction, but many times just purely psychotic secondary to his organic disease, who presents non adherent to medications. RECOMMENDATION AND PLAN: 1.? Continue current medication. Continue Depakote extended release 500 mg in the morning. Continue Seroquel 100 mg at night. 2.? Encourage individual, group, and milieu therapy. 3.? Continue q-15 minute checks for safety. 4.? Gave Invega Sustenna injection 156 mg IM 07/27/2022 with likely plan for a 21-day hold. The patient's invega sustenna likely needing increase to 234mg IM in august. 5. Discharge to planned residential treatment facility tomorrow. Involuntary Hold Information 96 Hour Hold: 96 Hour Involuntary Admission: Yes 96 Hour Hold Ending Date: 08/02/22 96 Hour Hold Ending Time: 01:55 Attestations NPU Medical Necessity Statement*: Inpatient hospitalization is medically necessary and the clinically appropriate intervention at this time. We will monitor medications and make changes as indicated. Tentative plan for discharge in the morning. Coding Level of Care Code Acute Flame Cutting Machine Operator Helper for Brian Beltran Diagnoses Chronic schizophrenia F20.9 Acute psychosis F23 Schizoaffective disorder, bipolar type F25.0 Methamphetamine dependence F15.20
[2022-08-10] MEDS: quetiapine 25 mg Tablet 100 MG PO (20:46)
--- NOTE | 2022-08-11 07:37 | W.PM.NPUDCS ---
Diagnoses at Discharge Discharge Diagnosis (1) Chronic schizophrenia: Status: Acute (2) Acute psychosis: Status: Acute (3) Schizoaffective disorder, bipolar type: Status: Chronic (4) Methamphetamine dependence: Status: Chronic Reason for Visit Reason for Visit: MHE Brief History: History of Present Illness Paul Rhodes is a 46 year old male who presented to the emergency department with the following report: Chief Complaint: Psychiatric Symptoms Stated Complaint: 'fears for life' Source: patient and EMS Mode of arrival: EMS Limitations: no limitations History of Present Illness: HPI Narrative: 46-year-old male has a history of schizophrenia and homelessness states that he has been having some depression he is also hearing voices. He supposed to take Depakote he states he has Depakote but he hasn't been taking it. Called EMS states he feels like he needs to be admitted for his paranoia he states he also has nowhere to go and is homeless currently. Denies any suicidality or homicidality. He was admitted to the neuropsychiatric unit for definitive treatment of those issues. He presents today unwilling to answer any questions that were presented by this manual writer. We have a challenging past which includes periods of extreme psychosis on his part wherein he has significant racist ideologies and significant anger with this manual writer including times where he has postured as if he was going to attack this manual writer only to be back down by the presence of security. I told multiple questions about how he was doing, what he has been doing since his last discharge, how we might be able to assist him with in maintaining his independence and autonomy and he continues to await with a fairly irritated almost clenched face look. An excerpt from his 08/01/2021 discharge is included below for context. Per his 08/01/2021 [facility] [place] inpatient psychiatric discharge summary: PSYCH PATIENT Brief History: Paul Rhodes is a 46 year old male with previous diagnosis of schizoaffective disorder, bipolar type often exacerbated by methamphetamine abuse, who is admitted because he felt he needed to flee his home because of paranoid delusions that he was being watched there. The patient says he often hears a car pull up at night onto the property where he is living, hears the door closed, and sometimes hears people whispering, as if they do not want to be heard. He says, there is someone out there watching me. I feel the law is setting me up. The law is pushing me to try to do drugs. He repeats these types of phrases over and over again, even after I repeated back to him and he tells me that he feels that I have understood what he is saying. He works himself up into tearful fear that bad things are going to happen to him. He says these things are really happening and there is no chance that they could be part of his schizoaffective disorder. He denies hearing voices or seeing things that are not there. He denies wanting to kill himself. However he does say, if I cannot live in peace, I want to . He has some additional delusions regarding his medication. He says that, God told me not to take the Seroquel, because it would make him too sleepy and the people who were watching his trailer would open get him. He says that Invega, takes away my soul. He is very adamant about not taking Invega, but does say he could take Seroquel here, because the people will not get him here. At another point, he talks about the [place] doctrine, which says that if someone comes into your house you can kill them. The patient says he has been drinking 1 can of beer at a single session, and has used marijuana and methamphetamines. He also smokes cigarettes. The patient says he has had too many psychiatric hospitalizations to be able to count them. He says he receives follow-up psychiatric treatment through a clinic in [place], [place]. He does report manic episodes in which she has a lot of energy, and can stay up for 5 nights in a row without needing sleep. He denies euphoric periods. Family history: Patient says that his paternal aunt had schizophrenia. Psychosocial history: He is on disability and has been living in a trailer. Legal history: No legal difficulties. Records indicate that at one point he had been assigned a guardian, but that order had been rescinded. The previous admission note from 06/19/2021 states Today, he presents known to this manual writer from previous hospitalizations appearing as he generally does at the beginning of those hospitalizations. Paul presents floridly psychotic, pacing the hallways with ranting and talking to himself. There are times that he can be seen moving his right hand in a puppet motion, as if his hand is speaking to him, and that he turns and listens to what his hand says, and then responds back on many different topics. He endorses during this time working for the [employer], the [employer], the [employer], and then goes on rants about what each of these organizations do. He also continued with significant religiously driven banter about [employer] and God, and him being an arc higinio, and him not being able to be kept in this building because will intervene. At one point, he did acknowledge that he had stopped taking his medication because he is homeless now, but he could not explain what happened that led him to being homeless. He identified that Seroquel and Depakote were medications that he takes, and he would take 300 mg of Seroquel and 500 mg of Depakote. He then went on a rant about those medications being mixed and faked by doctors, and that he would know when he tasted the medication if we had adulterated it in any way or used fake medication, and then he used his hand to puppet that God told him that if we put the fake stuff in his body, he would intervene and make it the real Depakote. He then said that we could start the medication. As per previous hospitalizations, he was very racially driven and spent some time discussing the fact that he was not racist, but then bringing attention to this manual writer being and that he likes black people, just other people do not like black people. He was unable to stay on task to answer previous questions, but an excerpt from his last hospitalization is included for context. It is noteworthy that he has never been able to recover psychiatrically without a 21-day hold, and long acting injectable, to get him to a place where he can leave the hospital functionally. [facility] today. We talked some about his schizoaffective disorder. He feels he has primarily a bipolar disorder. The psychosis is caused by drug use. This is a possibility certainly. He wants to decrease Seroquel at bedtime from 300 mg to 150 mg, because the 300 mg makes him too groggy in the morning. I am willing to give this a try. He denies any other side effects from medication. The patient was admitted to the neuropsychiatric unit for definitive treatment of these issues. On the unit he easily acclimated to the individual, group and milieu therapies as he has been here before recently. There were some mild psychotic symptoms present initially which resolved. He talked to his landlord about his fears that someone was going to break into his house and harm him. His landlord has a shed right near his trailer. She thinks that people may be wanting to steal things out of the shed, and that is why he is hearing a car pull up at night. This thought eased his mind greatly, and he was not nearly so worried that someone is going to hurt him. Seroquel was decreased from 300 mg at bedtime to 150 mg at bedtime. He feels this is an adequate dose for him. He was receptive to treatment team recommendations and showed modest improvement and was able to contract for safety prior to discharge. During the hospitalization, patient had routine laboratory studies which were within normal limits except for few outliers. Additionally there was a general medical evaluation which was also within normal limits and revealed no new acute processes. Discharge Summary: At the time of discharge, psychosis and lethality were denied. Mood and anxiety were well managed. Patient endorsed a plan to avoid all drugs of abuse and follow-up with the aftercare recommendations of the treatment team. Patient was evaluated and deemed to be absent credible lethality, and had achieved the maximum benefit from an inpatient hospitalization, so was discharged. Hospital Course Hospital Course He slowly acclimated to the individual, group and milieu therapies.? He presented in a better condition than we are accustomed to and therefore his resistance to medication was limited in beginning. He allowed us to give him his overdue Invega Sustenna and some truncated doses of his Seroquel and Depakote which he tolerated well. We are able to find placement that her guardian was also agreeable with and he showed significant improvement during the hospitalization.he was able to contract for safety outside of the hospital prior to discharge.? During the hospitalization, patient had routine laboratory studies which were within normal limits except for few outliers.? Additionally there was a general medical evaluation which was also within normal limits and revealed no new acute processes. Discharge Summary: At the time of discharge, lethality was denied and psychosis was resolving.? Mood and anxiety were well managed.? Patient endorsed a plan to avoid all drugs of abuse and follow-up with the aftercare recommendations of the treatment team.? Patient was evaluated and deemed to be absent credible lethality, and had achieved the maximum benefit from an inpatient hospitalization, so was discharged. Involuntary Hold Information 96 Hour Hold: 96 Hour Involuntary Admission: Yes 96 Hour Hold Ending Date: 08/02/22 96 Hour Hold Ending Time: 01:55 Mental Status Exam MSE Comments: This is a well-developed white male in hospital scrubs with adequate grooming and improving eye contact. No abnormal involuntary motor movements tics or tremors were appreciated. He was cooperative with exam in no acute distress. Speech is monotone in quality, normal in rate and volume. Mood described as pretty good. His affect is congruent but slightly subdued. Thought process appeared organized. Thought content: Patient denies suicidal or homicidal ideation, but continued paranoid and persecutory delusions noted but less apparent/on the surface. He denied auditory or visualizations and did not appear to be responding to internal stimuli during interview but possibly at other times. Attention and concentration appeared intact. His memory appeared mostly reliable but none were formally tested. Insight and judgment was limited. His impulse control was limited, but improving. Discharge Data Studies Completed and Pending: Laboratory Results WBC 8.3 10^3/uL (4.0- 10.0) 07/26/22 21:10 RBC 4.72 10^6/uL (4.1 -5.3) 07/26/22 21:10 Hgb 15.1 g/dL (11.7-1 6.6) 07/26/22 21:10 Hct 45.2 % (42.0-52.0 ) 07/26/22 21:10 MCV 95.8 fl (80-94) H 07/26/22 21:10 MCH 32.0 pg (28.0-34. 0) 07/26/22 21:10 MCHC 33.4 g/dL (30.0-3 6.0) 07/26/22 21:10 RDW 12.5 % (12.1-15.1 ) 07/26/22 21:10 Plt Count 286 10^3/cmm (130 -400) 07/26/22 21:10 MPV 9.9 fL (7.4-10.4) 07/26/22 21:10 Neut % (Auto) 78.5 % 07/26/22 21:10 Lymph % (Auto) 12.2 % 07/26/22 21:10 Cochran % (Auto) 8.6 % 07/26/22 21:10 Eos % (Auto) 0.1 % 07/26/22 21:10 Baso % (Auto) 0.2 % 07/26/22 21:10 Neut # (Auto) 6.50 10^3/uL (1.8 -7.7) 07/26/22 21:10 Lymph # (Auto) 1.0 10^3/uL (0.8- 4.8) 07/26/22 21:10 Cochran # (Auto) 0.7 10^3/uL (0.2- 0.9) 07/26/22 21:10 Eos # (Auto) 0.0 10^3/uL (0.0- 0.8) 07/26/22 21:10 Baso # (Auto) 0.0 10^3/uL (0.0- 0.1) 07/26/22 21:10 Nucleated RBC % (a uto) 0 % 07/26/22 21:10 Nucleated RBCs # 0.0 /100WBC 07/26/22 21:10 Sodium 134 mmol/L (136-1 45) L 07/26/22 21:10 Potassium 4.7 mmol/L (3.5-5 .1) 07/26/22 21:10 Chloride 98 mmol/L (98-107 ) 07/26/22 21:10 Carbon Dioxide 24 mmol/L (22-29) 07/26/22 21:10 Anion Gap 16.7 (5-19) 07/26/22 21:10 BUN 11 mg/dL (6-20) 07/26/22 21:10 Creatinine 0.8 mg/dL (0.7-1. 2) 07/26/22 21:10 GFR Calculation 103.2 mL/min (90- 130) 07/26/22 21:10 Glucose 102 mg/dL (65-115 ) 07/26/22 21:10 Calculated Osmolal ity 278 mOsm/kg (285- 295) L 07/26/22 21:10 Calcium 10.5 mg/dL (8.5-1 0.5) 07/26/22 21:10 Total Bilirubin 0.8 mg/dL (0.15-1 .2) 07/26/22 21:10 AST 47 U/L (0-40) H 07/26/22 21:10 ALT 16 U/L (0-41) 07/26/22 21:10 Alkaline Phosphata se 76 U/L (40-130) 07/26/22 21:10 Total Protein 7.5 g/dL (6.6-8.7 ) 07/26/22 21:10 Albumin 4.2 g/dL (3.5-5.2 ) 07/26/22 21:10 Globulin 3.3 g/dL (1.3-4.6 ) 07/26/22 21:10 Salicylates < 0.3 mg/dL (3-10 ) L 07/26/22 21:10 Urine Opiates Scre en Negative ng/mL (N egative) 07/27/22 01:50 Acetaminophen < 5.0 ug/mL (10-3 0) L 07/26/22 21:10 Ur Barbiturates Sc reen Negative ng/mL (N egative) 07/27/22 01:50 Ur Phencyclidine S crn Negative ng/mL (N egative) 07/27/22 01:50 Ur Amphetamines Sc reen Positive ng/mL (N egative) H 07/27/22 01:50 U Benzodiazepines Scrn Positive ng/mL (N egative) H 07/27/22 01:50 Urine Cocaine Scre en Negative ng/mL (N egative) 07/27/22 01:50 U Marijuana (THC) Screen Positive ng/mL (N egative) H 07/27/22 01:50 Ethyl Alcohol < 10 mg/dL (0-10) 07/26/22 21:10 Vitals: Last Vital Signs Temp 97.8 F 08/01/22 14:00 Pulse 123 H 08/02/22 14:00 Resp 18 08/10/22 06:00 BP 120/84 08/02/22 14:00 Pulse Ox 96 08/02/22 14:00 O2 Del Method 08/10/22 14:00 Discharge Plan Discharge Patient Disposition: Home Condition: Stable Prescriptions: New quetiapine 25 mg Tablet 100 mg PO BEDTIME 30 Days Qty: 120 1RF divalproex 500 mg Tablet Extended Release 24 Hr 500 mg PO DAILY 30 Days Qty: 30 1RF Invega Sustenna 234 mg/1.5 mL syringe 234 mg IM Q30D 30 Days Qty: 1.5 1RF Rx Instructions: Next injection 08/27/22 Discontinued quetiapine 300 mg tablet 300 mg PO BEDTIME divalproex 500 mg tablet extended release 24 hr 1,000 mg PO BEDTIME Discharge Orders: Discharge Order (Routine); Ordered 08/11/22 Ordered By: Jermaine Pederson Referrals: Parish White [Other] - 08/11/22 Venice Loaiza [facility] resident physician [Other] - 08/17/22 9:00 am (Follow up) Dr. Barrett Mann [facility] resident psychiatrist [Other] - 08/23/22 3:00 pm (Follow up) Discharge Diet: Regular Discharge Activity: Resume usual activity Patient Instructions: Bipolar Disorder (DC), Schizophrenia (DC), Schizoaffective Disorder (DC), Methamphetamine Use Disorder (DC), Psychotic Disorder (DC), Opioid Safety Discharge Attestations NPU Time Spent in Discharge Care*: less than 30 min Specific Discharge Activities: Specific discharge activities: educating patient, discussing with rehabilitation case coordinator/social workers/dc planners, documenting/other paperwork and evaluating patient/reviewing data Status at Discharge: Cognitive status at discharge: cognitively intact, Behavioral status at discharge: cooperative and can be uncooperative, Coding Level of Care Code Acute Chg FW DC note Diagnoses Chronic schizophrenia F20.9 Acute psychosis F23 Schizoaffective disorder, bipolar type F25.0 Methamphetamine dependence F15.20
[2022-08-11 07:54] VITALS: RESP 18
[2022-08-11 07:57] VITALS: BP 118/85; PULSE 106; RESP 18; TEMP 36.3; O2SAT 96
[2022-08-11] MEDS: divalproex ER 500 mg Tablet (24H) PO (07:59)
--- NOTE | 2022-08-11 08:31 | DCPLANNER ---
Imm was given to pt and explained. Copy placed in chart and will be added to discharge planning as instructed by Rina virgen.
[2022-08-11] MEDS: nicotine 2 mg Gum BUCCAL (10:06)
== END 2022-08-11 13:01 | disposition home or self-care (01) | DRG 885 ==
LOC: ER 21:50 → NP 22:07
PROVIDERS: Admitting Provider Psychiatry & Neurology Psychiatry; Emergency Provider Emergency Medicine; Visit Provider Psychiatry & Neurology Psychiatry
DX: F25.0 Schizoaffective disorder, bipolar type (principal); F15.20 Other stimulant dependence, uncomplicated; T43.596A Underdosing of other antipsychotics and neuroleptics, initial encounter; F17.200 Nicotine dependence, unspecified, uncomplicated; Z91.128 Patient's intentional underdosing of medication regimen for other reason; Z59.00 Homelessness unspecified; Z81.8 Family history of other mental and behavioral disorders; Z91.14 Patient's other noncompliance with medication regimen
CPT/HCPCS: 80053; 80306; 80307; 85025; 96372; 97150; 97165; 99285